=== PATIENT | female | born 1980 | race Caucasian/White ===

== ENCOUNTER 2017-04-15 18:10 | Emergency (ER) | payer SELFPAY ==
[2017-04-15 18:41] VITALS: BP 124/84
[2017-04-15] MEDS ORDERED: IPRATROPIUM/ALBUTEROL 0.5-2.5 MG/3 ML AMPUL NEB ONE (19:20)
[2017-04-15] MEDS ORDERED: DEXAMETHASONE SOD PHOS INJ 10 MG/1 ML VIAL IV ONE (19:20)
--- NOTE | 2017-04-15 19:22 | ER Document Report ---
ED Medical Screen (RME) - General Chief Complaint: Vomiting Stated Complaint: EAR PAIN Time Seen by Provider: 04/15/17 19:19 Mode of Arrival: Ambulatory Information source: Patient Notes: 36-year-old female presents to ED for "been sick for the last 2 weeks not been able to get off the couch. She states she is having body aches cough congestion fevers vomiting earache for the last week. She states she is an alcoholic and drinks about 1/5 and a half a day smokes 10 cigarettes a day denies any drugs states she is on her period right now. Lungs very congested moist wheezes rhonchi rales. I have greeted and performed a rapid initial assessment of this patient. A comprehensive ED assessment and evaluation of the patient, analysis of test results and completion of medical decision making process will be conducted by an additional ED providers. TRAVEL OUTSIDE OF THE [place] IN LAST 30 DAYS: No - Related Data Allergies/Adverse Reactions: lorazepam [From Ativan] Allergy (Verified 04/15/17 18:10) Past Medical History Pulmonary Medical History: Reports: Hx Asthma Past Surgical History: Reports: Hx Adenoidectomy, Hx Section, Hx Tonsillectomy, Hx Tubal Ligation - Immunizations Immunizations up to date: Yes Hx Diphtheria, Pertussis, Tetanus Vaccination: Yes - 2014 Physical Exam - Vital signs Vitals: Temp Pulse Resp BP Pulse Ox 97.7 F 99 20 124/84 93 04/15/17 18:39 04/15/17 18:39 04/15/17 18:39 04/15/17 18:39 04/15/17 18:39 Course - Vital Signs Vital signs: Temp Pulse Resp BP Pulse Ox 97.7 F 99 20 124/84 93 04/15/17 18:39 04/15/17 18:39 04/15/17 18:39 04/15/17 18:39 04/15/17 18:39
[2017-04-15] MEDS ORDERED: ALBUTEROL SULFATE 0.083% NEB 2.5 MG/3 ML AMPUL NEB SCH (19:30)
[2017-04-15 20:15] LABS: APPEARANCE,URINE SLIGHTLY-CLOUDY; BILIRUBIN,URINE NEGATIVE (NEGATIVE); COLOR,URINE YELLOW; GLUCOSE, URINE NEGATIVE (NEGATIVE); KETONES,URINE 80 mg/dL (NEGATIVE); LEUKOCYTE ESTERASE,URINE NEGATIVE (NEGATIVE); NITRITE,URINE NEGATIVE (NEGATIVE); PROTEIN,URINE >=500 mg/dL (NEGATIVE); URINE SPECIFIC GRAVITY 1.022
--- NOTE | 2017-04-15 20:23 | RADIOLOGY REPORT (SQ) ---
EXAM DESCRIPTION: CHEST PA/LAT COMPLETED DATE/TIME: 04/15/2017 8:10 pm REASON FOR STUDY: Cough congestion fever COMPARISON: None. TECHNIQUE: Frontal and lateral radiographic views of the chest acquired. NUMBER OF VIEWS: Two view. LIMITATIONS: None. FINDINGS: LUNGS AND PLEURA: Faint airspace disease projects over the heart shadow on lateral view. Suspicious for pneumonia, likely in the lingula. MEDIASTINUM AND HILAR STRUCTURES: No masses or contour abnormalities. HEART AND VASCULAR STRUCTURES: Heart normal size. No evidence for failure. BONES: No acute findings. HARDWARE: None in the chest. OTHER: No other significant finding. IMPRESSION: Left upper lobe pneumonia. TECHNICAL DOCUMENTATION: JOB ID: [id number] [employer] All Rights Reserved
[2017-04-15 20:53] LABS: ABSOLUTE BASOPHILS # (AUTO) 0.1 10^3/uL (0.0-0.2); ABSOLUTE LYMPHOCYTES (AUTO) 2.2 10^3/uL (0.5-4.7); ABSOLUTE MONOCYTES (AUTO) 0.2 10^3/uL (0.1-1.4); ABSOLUTE NEUT (AUTO) 6.9 10^3/uL (1.7-8.2); BASOPHILS % (AUTO) 0.7 % (0-2); HEMATOCRIT 42.1 % (36.0-47.0); HEMOGLOBIN 14.1 g/dL (12.0-15.5); LYMPHOCYTES % (AUTO) 23.4 % (13-45); MEAN CORPUSCULAR HEMOGLOBIN 30.6 pg (27.0-33.4); MEAN CORPUSCULAR HGB CONC 33.4 g/dL (32.0-36.0); MEAN CORPUSCULAR VOLUME 92 fl (80-97); MONOCYTES % (AUTO) 2.4 % (3-13); PLATELET COUNT 277 10^3/uL (150-450); RED CELL DISTRIBUTION WIDTH 18.3 % (11.5-14.0); SEGMENTED NEUTROPHILS % (AUTO) 73.5 % (42-78); TOTAL CELLS COUNTED % (AUTO) 100 %; WHITE BLOOD COUNT 9.4 10^3/uL (4.0-10.5)
[2017-04-15 21:29] LABS: ALANINE AMINOTRANSFERASE 67 U/L (9-52); ALBUMIN 4.7 g/dL (3.5-5.0); ALKALINE PHOSPHATASE 173 U/L (38-126); ASPARTATE AMINO TRANSFERASE 175 U/L (14-36); BILIRUBIN,DIRECT 0.4 mg/dL (0.0-0.4); BILIRUBIN,TOTAL 0.5 mg/dL (0.2-1.3); BLOOD UREA NITROGEN 8 mg/dL (7-20); CALCIUM 9.3 mg/dL (8.4-10.2); GLUCOSE 55 mg/dL (75-110); TOTAL PROTEIN 7.8 g/dL (6.3-8.2)
[2017-04-15 21:39] LABS: ANION GAP 29 (5-19); CHLORIDE 100 mmol/L (98-107); POTASSIUM 4.5 mmol/L (3.6-5.0)
[2017-04-15 21:40] LABS: CARBON DIOXIDE 12 mmol/L (22-30); SODIUM 140.8 mmol/L (137-145)
[2017-04-15 21:43] LABS: ALCOHOL 357 mg/dL (NONE DETECTED)
== END 2017-04-15 21:39 | disposition left against medical advice (07) ==
LOC: ER 18:10
DX: R11.10 Vomiting, unspecified (principal); M79.1 Myalgia; R05 Cough; H92.09 Otalgia, unspecified ear; F17.210 Nicotine dependence, cigarettes, uncomplicated; J45.909 Unspecified asthma, uncomplicated; Z98.51 Tubal ligation status
CPT/HCPCS: 94640 ×2; 99283; 96374; 36415; 87040; 80307; 84703; 85025; 80053; 81001; 71046; J1100; J7620

== ENCOUNTER 2017-04-16 17:50 | Inpatient (IN) | payer SELFPAY ==
[2017-04-16] MEDS ORDERED: IPRATROPIUM/ALBUTEROL 0.5-2.5 MG/3 ML AMPUL NEB ONE (18:17)
--- NOTE | 2017-04-16 18:18 | ER Document Report ---
ED Medical Screen (RME) - General Chief Complaint: Flu Symptoms Stated Complaint: FLU LIKE SYMPTOMS Time Seen by Provider: 04/16/17 18:16 Mode of Arrival: Ambulatory Information source: Patient Notes: 36-year-old female yesterday presents with complaints of shortness of breath, patient noted to be satting 86% on room air I have greeted and performed a rapid initial assessment of this patient. A comprehensive ED assessment and evaluation of the patient, analysis of test results and completion of the medical decision making process will be conducted by additional ED providers. PHYSICAL EXAMINATION: GENERAL: Respiratory distress. HEAD: Atraumatic, normocephalic. EYES: Pupils equal round extraocular movements intact, conjunctiva are normal. ENT: Nares patent NECK: Normal range of motion LUNGS: moderate respiratory distress Musculoskeletal: Normal range of motion NEUROLOGICAL: Normal speech, normal gait. PSYCH: Normal mood, normal affect. SKIN: Warm, Dry, normal turgor, no rashes or lesions noted. TRAVEL OUTSIDE OF THE [place] IN LAST 30 DAYS: No - Related Data Allergies/Adverse Reactions: lorazepam [From Ativan] Allergy (Verified 04/15/17 18:10) Past Medical History Pulmonary Medical History: Reports: Hx Asthma Renal/ Medical History: Denies: Hx Peritoneal Dialysis Past Surgical History: Reports: Hx Adenoidectomy, Hx Section, Hx Tonsillectomy, Hx Tubal Ligation - Immunizations Immunizations up to date: Yes Hx Diphtheria, Pertussis, Tetanus Vaccination: Yes - 2014 Physical Exam - Vital signs Vitals: Temp Pulse Resp BP Pulse Ox 98.5 F 102 H 19 128/80 H 90 L 04/16/17 18:02 04/16/17 18:02 04/16/17 18:02 04/16/17 18:02 04/16/17 18:02 Course - Vital Signs Vital signs: Temp Pulse Resp BP Pulse Ox 98.5 F 118 H 20 128/80 H 94 04/16/17 18:02 04/16/17 20:24 04/16/17 20:24 04/16/17 18:02 04/16/17 20:24 - Laboratory Result Diagrams: 04/16/17 19:54 04/16/17 19:54 Laboratory results interpreted by me: 04/16/17 18:40 Urine Protein 30 H Urine Ketones 20 H Urine Blood SMALL H Doctor's Discharge - Discharge Clinical Impression: Pneumonia, Hypoxemia, Smoking Condition: Fair Disposition: ADMITTED INPATIENT
[2017-04-16] MEDS ORDERED: CEFTRIAXONE INJ 1000 MG VIAL IV ONE (18:26)
[2017-04-16] MEDS ORDERED: AZITHROMYCIN INJ 500 MG VIAL IV ONE (18:31)
--- NOTE | 2017-04-16 18:31 | ER Document Report ---
ED General - General Chief Complaint: Flu Symptoms Stated Complaint: FLU LIKE SYMPTOMS Time Seen by Provider: 04/16/17 18:16 Mode of Arrival: Ambulatory Information source: Patient Notes: 36-year-old female presents in moderate respiratory distress, patient was noted to be seen yesterday went home continued to smoke. She notes for the past 2 months she has not feeling well, yesterday she was intoxicated and left prior to further evaluation. Yesterday she was at 90% today upon arrival patient was satting 86% admits to productive cough fevers and chills TRAVEL OUTSIDE OF THE [place] IN LAST 30 DAYS: No - HPI Onset: Other Onset/Duration: Persistent Quality of pain: Achy Severity: Mild Pain Level: 1 Associated symptoms: Body/muscle aches, Productive cough, Fever, Shortness of breath Exacerbated by: Coughing Relieved by: Denies Similar symptoms previously: Yes Recently seen / treated by doctor: Yes - Related Data Allergies/Adverse Reactions: lorazepam [From Ativan] Allergy (Verified 04/15/17 18:10) Past Medical History - Social History Smoking Status: Current Every Day Smoker Cigarette use (# per day): Yes Chew tobacco use (# tins/day): No - 30 Smoking Education Provided: Yes - Patient counselled regarding cessation for 4 minutes Frequency of alcohol use: Heavy Drug Abuse: None Family History: Malignancy - family hx of throat cancer. denies: CAD, CVA, DM, Hyperlipidemia, Hypertension, Thyroid Disfunction Patient has suicidal ideation: No Patient has homicidal ideation: No Pulmonary Medical History: Reports: Hx Asthma Renal/ Medical History: Denies: Hx Peritoneal Dialysis Past Surgical History: Reports: Hx Adenoidectomy, Hx Section, Hx Tonsillectomy, Hx Tubal Ligation - Immunizations Immunizations up to date: Yes Hx Diphtheria, Pertussis, Tetanus Vaccination: Yes - 2014 Review of Systems - Review of Systems Notes: REVIEW OF SYSTEMS: CONSTITUTIONAL : Admits to fevers and chills EENT: Denies eye, ear, throat, or mouth pain or symptoms. Denies nasal or sinus congestion or discharge. Denies throat, tongue, or mouth swelling or difficulty swallowing. CARDIOVASCULAR: Denies chest pain. Denies palpitations or racing or irregular heart beat. Denies ankle edema. RESPIRATORY: Admits cough shortness of breath difficulty breathing GASTROINTESTINAL: Denies abdominal pain or distention. Denies nausea, vomiting , or diarrhea. Denies blood in vomitus, stools, or per rectum. Denies black, tarry stools. Denies constipation. GENITOURINARY: Denies difficulty urinating, painful urination, burning, frequency, blood in urine, or discharge. FEMALE GENITOURINARY: Denies vaginal bleeding, heavy or abnormal periods, irregular periods. Denies vaginal discharge or odor. MUSCULOSKELETAL: Denies back or neck pain or stiffness. Denies joint pain or swelling. SKIN: Denies rash, lesions or sores. HEMATOLOGIC : Denies easy bruising or bleeding. LYMPHATIC: Denies swollen, enlarged glands. NEUROLOGICAL: Denies confusion or altered mental status. Denies passing out or loss of consciousness. Denies dizziness or lightheadedness. Denies headache. Denies weakness or paralysis or loss of use of either side. Denies problems with gait or speech. Denies sensory loss, numbness, or tingling. Denies seizures. PSYCHIATRIC: Denies anxiety or stress. Denies depression, suicidal ideation, or homicidal ideation. ALL OTHER SYSTEMS REVIEWED AND NEGATIVE. PHYSICAL EXAMINATION: GENERAL: Ill-appearing female in moderate respiratory distress HEAD: Atraumatic, normocephalic. EYES: Pupils equal round and reactive to light, extraocular movements intact, conjunctiva are normal. ENT: Nares patent, oropharynx clear without exudates. Moist mucous membranes. NECK: Normal range of motion, supple without lymphadenopathy LUNGS: Moderate respiratory distress rhonchi wheezing all throughout HEART: Tachycardic ABDOMEN: Soft, nontender, nondistended abdomen. No guarding, no rebound. No masses appreciated. Female : deferred Musculoskeletal: Normal range of motion, no pitting or edema. No cyanosis. NEUROLOGICAL: Cranial nerves grossly intact. Normal speech, normal gait. Normal sensory, motor exams PSYCH: Normal mood, normal affect. SKIN: Warm, Dry, normal turgor, no rashes or lesions noted. Dictation was performed using [employer] voice recognition software Physical Exam - Vital signs Vitals: Temp Pulse Resp BP Pulse Ox 98.5 F 102 H 19 128/80 H 90 L 04/16/17 18:02 04/16/17 18:02 04/16/17 18:02 04/16/17 18:02 04/16/17 18:02 Course - Re-evaluation Re-evalutation: Upon arrival patient is Stormy's of cigarette smoke, she denies smoking states she only likes them and holds onto them. He is noted to be in moderate respiratory distress immediately placed on oxygen, given that complete workup at been performed the day prior I did contact Dr. Burroughs and she is willing to admit the patient 04/16/17 20:[address] Grace requests azithromycin in addition to the Rocephin 04/16/17 20:36 - Vital Signs Vital signs: Temp Pulse Resp BP Pulse Ox 98.5 F 118 H 20 128/80 H 94 04/16/17 18:02 04/16/17 20:24 04/16/17 20:24 04/16/17 18:02 04/16/17 20:24 - Laboratory Result Diagrams: 04/16/17 19:54 04/16/17 19:54 Laboratory results interpreted by me: 04/16/17 18:40 Urine Protein 30 H Urine Ketones 20 H Urine Blood SMALL H - Diagnostic Test Radiology reviewed: Image reviewed, Reports reviewed - left upper lobe pneumonia Critical Care Note - Critical Care Note Total time excluding time spent on procedures (mins): 34 Comments: 34 minutes of critical care time spent in direct contact evaluating and reevaluating the patient, treating symptoms, reviewing labs and studies and speaking with family and consultants excluding any procedures Discharge - Discharge Clinical Impression: Hypoxemia, Smoking Pneumonia Qualifiers: Pneumonia type: due to unspecified organism Laterality: left Lung location: upper lobe of lung Qualified Code(s): J18.1 - Lobar pneumonia, unspecified organism Condition: Fair Disposition: ADMITTED INPATIENT Admitting Provider: Hospitalist Unit Admitted: Telemetry
[2017-04-16 19:20] LABS: APPEARANCE,URINE CLEAR; BILIRUBIN,URINE NEGATIVE (NEGATIVE); COLOR,URINE YELLOW; GLUCOSE, URINE NEGATIVE (NEGATIVE); KETONES,URINE 20 mg/dL (NEGATIVE); LEUKOCYTE ESTERASE,URINE NEGATIVE (NEGATIVE); NITRITE,URINE NEGATIVE (NEGATIVE); PROTEIN,URINE 30 mg/dL (NEGATIVE); URINE SPECIFIC GRAVITY 1.008; UROBILINOGEN,URINE NEGATIVE mg/dL (<2.0)
--- NOTE | 2017-04-16 19:22 | RADIOLOGY REPORT (SQ) ---
EXAM DESCRIPTION: CHEST PA/LAT COMPLETED DATE/TIME: 04/16/2017 6:57 pm REASON FOR STUDY: sob COMPARISON: 04/15/2017. TECHNIQUE: Frontal and lateral radiographic views of the chest acquired. NUMBER OF VIEWS: Two view. LIMITATIONS: None. FINDINGS: LUNGS AND PLEURA: Minimal persistent subsegmental atelectasis, but improved aeration. No evidence of progressing pneumonia. No pneumothorax. Evidence of previous granulomatous disease. MEDIASTINUM AND HILAR STRUCTURES: No masses or contour abnormalities. HEART AND VASCULAR STRUCTURES: Heart normal size. No evidence for failure. BONES: No acute findings. HARDWARE: None in the chest. OTHER: No other significant finding. IMPRESSION: Improved aeration. Patchy upper lobe opacity is not as evident on today's study. TECHNICAL DOCUMENTATION: JOB ID: [id number] [employer]- All Rights Reserved
[2017-04-16] MEDS ORDERED: HYDRALAZINE HCL INJ/PF 20 MG/1 ML SDV IV PRN (19:29)
[2017-04-16] MEDS ORDERED: IPRATROPIUM/ALBUTEROL 0.5-2.5 MG/3 ML AMPUL NEB PRN (19:30)
[2017-04-16] MEDS ORDERED: ACETAMINOPHEN 325 MG TABLET PO PRN (19:30)
[2017-04-16 19:38] LABS: A TYPE INFLUENZA AG NEGATIVE (NEGATIVE); B INFLUENZA AG NEGATIVE (NEGATIVE)
[2017-04-16 20:00] LABS: ABSOLUTE LYMPHOCYTES (AUTO) 1.3 10^3/uL (0.5-4.7); ABSOLUTE MONOCYTES (AUTO) 0.3 10^3/uL (0.1-1.4); ABSOLUTE NEUT (AUTO) 6.3 10^3/uL (1.7-8.2); BASOPHILS % (AUTO) 0.5 % (0-2); HEMOGLOBIN 13.7 g/dL (12.0-15.5); LYMPHOCYTES % (AUTO) 16.8 % (13-45); MEAN CORPUSCULAR HEMOGLOBIN 30.6 pg (27.0-33.4); MEAN CORPUSCULAR HGB CONC 34.3 g/dL (32.0-36.0); MEAN CORPUSCULAR VOLUME 89 fl (80-97); PLATELET COUNT 293 10^3/uL (150-450); RED BLOOD COUNT 4.48 10^6/uL (3.72-5.28); RED CELL DISTRIBUTION WIDTH 18.4 % (11.5-14.0); SEGMENTED NEUTROPHILS % (AUTO) 78.7 % (42-78); TOTAL CELLS COUNTED % (AUTO) 100 %
[2017-04-16] MEDS ORDERED: FLUTICASONE NASAL SPRAY 50 MCG/SPRY 120 SPRAY/16 GM NASL ONE (20:00)
[2017-04-16] MEDS ORDERED: CHLORPHENIRAMINE MALEATE 4 MG TABLET PO ONE (20:00)
[2017-04-16] MEDS: IPRATROPIUM/ALBUTEROL 0.5-2.5 MG/3 ML AMPUL NEB SCH (20:15)
[2017-04-16 20:23] LABS: ALANINE AMINOTRANSFERASE 67 U/L (9-52); ALBUMIN 4.7 g/dL (3.5-5.0); ALKALINE PHOSPHATASE 160 U/L (38-126); ANION GAP 20 (5-19); ASPARTATE AMINO TRANSFERASE 149 U/L (14-36); BILIRUBIN,DIRECT 0.8 mg/dL (0.0-0.4); BLOOD UREA NITROGEN 9 mg/dL (7-20); CALCIUM 9.9 mg/dL (8.4-10.2); CARBON DIOXIDE 21 mmol/L (22-30); CHLORIDE 97 mmol/L (98-107); GLUCOSE 120 mg/dL (75-110); POTASSIUM 4.4 mmol/L (3.6-5.0); SODIUM 137.8 mmol/L (137-145); TOTAL PROTEIN 8.4 g/dL (6.3-8.2)
[2017-04-16] MEDS ORDERED: HALOPERIDOL LACTATE INJ 5 MG/1 ML VIAL IV ONE (21:03)
[2017-04-16] MEDS ORDERED: HALOPERIDOL LACTATE INJ 5 MG/1 ML VIAL ONE (21:03)
[2017-04-16] MEDS ORDERED: DIAZEPAM INJ 10 MG/2 ML DISP.SYRIN IV ONE (21:24)
[2017-04-16] MEDS ORDERED: HALOPERIDOL LACTATE INJ 5 MG/1 ML VIAL IV PRN (21:24)
[2017-04-16] MEDS ORDERED: THIAMINE HCL INJ 200 MG/2 ML VIAL IV PRN (21:41)
[2017-04-16] MEDS ORDERED: THIAMINE HCL 100 MG, FOLIC ACID 1 MG in NORMAL SALINE 250 ML IV ONE (21:45)
[2017-04-16] MEDS ORDERED: FOLIC ACID INJ 5 MG/1 ML 10 ML VIAL IV PRN (21:46)
[2017-04-16] MEDS: GUAIFENESIN 600 MG TABLET.SA PO SCH (23:10)
[2017-04-16] MEDS: HEPARIN SOD (PORCINE) 5,000 UNIT/ML 1 ML SYRINGE SUBCUT SCH (23:15)
[2017-04-17] MEDS: IPRATROPIUM/ALBUTEROL 0.5-2.5 MG/3 ML AMPUL NEB SCH ×4 (02:31→21:27)
--- NOTE | 2017-04-17 05:36 | PDOC H&P ---
History of Present Illness Admission Date/PCP: 04/16/17 19:16 Patient complains of: Shortness of breath and nonproductive cough History of Present Illness: TACHO SALINAS is a 36 year old female with a past medical history of unclear psychiatric illness suggestive of untreated schizoaffective disorder, COPD, tobacco and alcohol dependence. Patient presents after 1 week of worsening cough and congestion and was actually admitted for left upper lobe pneumonia 24 hours ago but left AMA prior to treatment. During exam patient has a bizarre affect is agitated and tremulous telling me she is about to have a seizure. Her roommate at bedside states she has been hearing voices. The patient denies suicidal or homicidal ideation but admits she has a unknown and untreated psychiatric illness. She states she is an alcoholic and has had withdrawal in the past but is allergic to lorazepam. Patient receives Haldol 10 mg IV followed by Valium 5 mg IV resulting in improved affect. Past Medical History Pulmonary Medical History: Reports: Asthma, Chronic Obstructive Pulmonary Disease (COPD) Psychiatric Medical History: Reports: Schizoaffective Disorder, Tobacco Dependency Past Surgical History Past Surgical History: Reports: Adenoidectomy, Section, Tonsillectomy, Tubal Ligation Social History Information Source: Patient Lives with: Friend Smoking Status: Current Every Day Smoker Frequency of Alcohol Use: Heavy Hx Recreational Drug Use: No Drugs: None - Advance Directive Resuscitation Status: Full Code Family History Family History: Malignancy - family hx of throat cancer. denies: CAD, CVA, DM, Hyperlipidemia, Hypertension, Thyroid Disfunction Parental Family History Reviewed: Yes Children Family History Reviewed: Yes Sibling(s) Family History Reviewed.: Yes Medication/Allergy Home Medications: Amoxicillin Trihydrate [Amoxil 500 mg Capsule] 500 mg PO TID #30 capsule Prednisone [Deltasone 10 mg Tablet] 10 mg PO ASDIR PRN #21 tablet 10/20/15 Chlorhexidine Gluconate [Peridex] 15 ml MM BID #250 ml 02/11/16 Naproxen 500 mg PO BIDP PRN #10 tablet 02/11/16 Penicillin V Potassium [Penicillin Vk 500 mg Tablet] 500 mg PO BID #20 tablet Allergies/Adverse Reactions: lorazepam [From Ativan] Allergy (Verified 04/15/17 18:10) Review of Systems ROS unobtainable: Due to mental status - Unreliable historian, concern for opiate or benzodiazepine seeking behavior. Physical Exam Vital Signs: Temp Pulse Resp BP Pulse Ox 98.8 F 118 H 21 H 101/52 L 93 04/17/17 02:45 04/16/17 20:24 04/17/17 04:31 04/17/17 04:32 04/17/17 04:01 General appearance: PRESENT: disheveled, mild distress, thin Head exam: PRESENT: atraumatic, normocephalic Eye exam: PRESENT: conjunctiva pink, EOMI, PERRLA. ABSENT: scleral icterus Ear exam: PRESENT: normal external ear exam Mouth exam: PRESENT: moist, tongue midline Neck exam: ABSENT: carotid bruit, JVD, lymphadenopathy, thyromegaly Respiratory exam: PRESENT: accessory muscle use, prolonged expiratory phas, rales, retraction, symmetrical, tachypnea Cardiovascular exam: PRESENT: RRR. ABSENT: diastolic murmur, rubs, systolic murmur Pulses: PRESENT: normal dorsalis pedis pul Vascular exam: PRESENT: normal capillary refill GI/Abdominal exam: PRESENT: normal bowel sounds, soft. ABSENT: distended, guarding, mass, organolmegaly, rebound, tenderness Rectal exam: PRESENT: deferred Extremities exam: PRESENT: calf tenderness Neurological exam: PRESENT: alert, awake, oriented to person, oriented to place , oriented to time, oriented to situation, CN II-XII grossly intact. ABSENT: motor sensory deficit Psychiatric exam: PRESENT: agitated, anxious, manic, unusual affect. ABSENT: homicidal ideation, suicidal ideation Focused psych exam: PRESENT: internal stimuli, restlessness Skin exam: PRESENT: dry, intact, warm. ABSENT: cyanosis, rash Results Laboratory Results: 04/16/17 19:54 04/16/17 19:54 04/16/17 04/16/17 19:54 19:54 WBC 8.0 RBC 4.48 Hgb 13.7 Hct 40.0 MCV 89 MCH 30.6 MCHC 34.3 RDW 18.4 H Plt Count 293 Seg Neutrophils % 78.7 H Lymphocytes % 16.8 Monocytes % 4.0 Eosinophils % 0.0 Basophils % 0.5 Absolute Neutrophils 6.3 Absolute Lymphocytes 1.3 Absolute Monocytes 0.3 Absolute Eosinophils 0.0 Absolute Basophils 0.0 Sodium 137.8 Potassium 4.4 Chloride 97 L Carbon Dioxide 21 L Anion Gap 20 H BUN 9 Creatinine 0.68 Est GFR ( Amer) > 60 Est GFR (Non-Af Amer) > 60 Glucose 120 H Calcium 9.9 Total Bilirubin 1.0 AST 149 H ALT 67 H Alkaline Phosphatase 160 H Total Protein 8.4 H Albumin 4.7 Impressions: Chest X-Ray 04/16/17 18:17 IMPRESSION: Improved aeration. Patchy upper lobe opacity is not as evident on today's study. Assessment & Plan - Diagnosis (1) Pneumonia Qualifiers: Pneumonia type: due to unspecified organism Laterality: left Lung location: upper lobe of lung Qualified Code(s): J18.1 - Lobar pneumonia, unspecified organism Is this a current diagnosis for this admission?: Yes Plan: Telemetry bed, pneumonia care set, incentive spirometry. Follow-up CBC and blood culture (2) COPD exacerbation Is this a current diagnosis for this admission?: Yes Plan: Supplemental oxygen, flutter valve, albuterol and Atrovent, avoid steroids secondary to decompensated psychosis. (3) Tobacco dependency Is this a current diagnosis for this admission?: Yes Plan: Tobacco Dependence patient received tobacco cessation counseling and offered nicotine replacement options (4) Alcohol dependence Is this a current diagnosis for this admission?: Yes Plan: Alcohol withdrawal, gives history of Ativan allergy with unclear reaction, tolerates Valium well. Thiamine folate ordered (5) Schizoaffective disorder Is this a current diagnosis for this admission?: Yes Plan: Haldol and benzodiazepine ordered. Mental health consulted - Time Time Spent: 50 to 70 Minutes - Inpatient Certification Medical Necessity: Need Close Monitoring Due to Risk of Patient Decompensation
[2017-04-17] MEDS: DIAZEPAM INJ 10 MG/2 ML DISP.SYRIN IV SCH ×4 (06:33→22:48)
[2017-04-17] MEDS: HEPARIN SOD (PORCINE) 5,000 UNIT/ML 1 ML SYRINGE SUBCUT SCH ×3 (06:34→22:48)
[2017-04-17] MEDS: NICOTINE 14 MG/24 HR PATCH.TD24 TD PRN (07:59)
--- NOTE | 2017-04-17 09:09 | PSYCHOLOGICAL NOTE ---
Psych Note - Psych Note Psych Note: Met with Patient who is not under IVC at this time. Patient reported she came to ED secondary to ongoing medical issues such as coughing, difficulty breathing, etc. She indicated she feels tremulous secondary to drinking 1-2 bottles of rum-Captain Ned per day (03/03). 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 She indicated she work 3- 4 days per week for 8 hours per day. When asked how she supported her drinking habit, she stated she had a saving account from her work as a cook or that her roommate graciously bought her alcohol for her. She indicated she began drinking 10 years ago and also went to rehab/detox 10 years ago for 2 weeks. When asked about a mental health history, she became incredibly guarded and argumentative, not wanting to answer the question. Additionally, her heart monitor and blood pressure were noted to increase significantly when discussing this topic. She denied any mental health issues, suicide attempts, or inpatient hospitalizations. patient reported she moved to [place] from [place] 2 years ago to be close to her children who are now 17, 18 and 19, and none of which live in the home. She denied having any family or friends in the area when she initially moved to [place], [place]. Patient was alert and oriented to person, place, time, and circumstance. Mood was irritable and anxious with congruent affect. She denied suicidal / homicidal ideation, intent, or plan. She denied auditory/ visual hallucinations and no delusions were noted. Thought processes were logical, linear, and rational. Conversational speech was within normal limits for rate, tone, and prosody. Intellectual abilities were estimated within the average range. Attention and concentration were fair. Insight, judgment, and impulse control were poor to fair. 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 Review of the [place] Controlled Substance Registry did not reveal controlled substance prescriptions dating back to 2013. Medication recommendation per [facility] Psychiatrist: 1. Zyprexa 5 mg twice per day 2. Buspar 10 mg at bedtime 3. Cogentin 1 mg at night Diagnoses: 1. 305.00 (F10.10) Alcohol Use Disorder, Mild Impression / Plan: Patient is psychiatrically clear. She denied suicidal / homicidal ideation, intent or plan and became irritable when asked about mental health issues, leading me to believe she likely has a mental health history she is unwilling to endorse. The historical information provided does not make but she is not being forthcoming at this time. Patient reports she does not feel well and does not want to talk with anyone from psychiatry. Patient is admitted to the medical floor for pneumonia. Medication recommendations are in place. Please reconsult if needed. ED Physician in agreement with recommendation and disposition.
[2017-04-17] MEDS ORDERED: LEVALBUTEROL HCL NEB 1.25 MG/3 ML AMPUL NEB PRN (09:48)
[2017-04-17] MEDS ORDERED: CEFTRIAXONE 1 GM/D5W RTU 1 GM/50 ML RTUPB IV SCH (10:00)
[2017-04-17] MEDS ORDERED: THIAMINE HCL 100 MG, FOLIC ACID 1 MG in NORMAL SALINE 250 ML IV SCH (10:00)
[2017-04-17 10:05] LABS: HEMATOCRIT 35.4 % (36.0-47.0); HEMOGLOBIN 12.2 g/dL (12.0-15.5); MEAN CORPUSCULAR HEMOGLOBIN 30.4 pg (27.0-33.4); MEAN CORPUSCULAR HGB CONC 34.4 g/dL (32.0-36.0); MEAN CORPUSCULAR VOLUME 88 fl (80-97); PLATELET COUNT 212 10^3/uL (150-450); RED BLOOD COUNT 4.01 10^6/uL (3.72-5.28); RED CELL DISTRIBUTION WIDTH 18.4 % (11.5-14.0); WHITE BLOOD COUNT 6.7 10^3/uL (4.0-10.5)
[2017-04-17 10:22] LABS: ANION GAP 14 (5-19); BLOOD UREA NITROGEN 12 mg/dL (7-20); CALCIUM 9.9 mg/dL (8.4-10.2); CARBON DIOXIDE 26 mmol/L (22-30); CHLORIDE 92 mmol/L (98-107); GLUCOSE 98 mg/dL (75-110); POTASSIUM 3.6 mmol/L (3.6-5.0); SODIUM 132.3 mmol/L (137-145)
[2017-04-17] MEDS: OLANZAPINE 5 MG TABLET PO SCH ×2 (10:28→22:48)
[2017-04-17] MEDS: GUAIFENESIN 600 MG TABLET.SA PO SCH ×2 (10:29→22:47)
[2017-04-17] MEDS: FLUTICASONE NASAL SPRAY 50 MCG/SPRY 120 SPRAY/16 GM NASL SCH ×2 (10:29→22:49)
[2017-04-17] MEDS: AZITHROMYCIN 500 MG in DEXTROSE 5%-WATER 250 ML IV SCH (10:30)
[2017-04-17 10:32] LABS: VENOUS BLOOD BASE EXCESS 8.1 mmol/L; VENOUS BLOOD HCO3 29.2 mmol/L (20-32); VENOUS BLOOD PCO2 30.6 mmHg (35-63); VENOUS BLOOD PH 7.6 (7.30-7.42)
--- NOTE | 2017-04-17 13:10 | PDOC PROGRESS REPORT ---
Subjective Progress Note for:: 04/17/17 Subjective:: The patient is a 36-year-old female with a past medical history of unclear psychiatric illness suggestive of an untreated schizoaffective disorder, COPD, tobacco and alcohol dependence who was admitted on 04/16/17 for a left upper lobe pneumonia with COPD exacerbation The patient is seen on rounds. She is found resting comfortably in the emergency department stretcher on supplemental oxygen at 2 L/min. She is drowsy but does wake easily and is cooperative during my questions and exam. She states that she is feeling better, however does continue to feel short of breath with activity and endorses a productive cough. She has no other questions or concerns at this time. Reason For Visit: COPD EXACERBATION,PNEUMONIA Physical Exam Vital Signs: Temp Pulse Resp BP Pulse Ox 98.8 F 142 H 16 97/54 L 93 04/17/17 02:45 04/17/17 08:22 04/17/17 10:23 04/17/17 10:00 04/17/17 10:23 General appearance: PRESENT: no acute distress, cooperative, well-developed, well-nourished Head exam: PRESENT: atraumatic, normocephalic Eye exam: PRESENT: conjunctiva pink, EOMI, PERRLA. ABSENT: scleral icterus Ear exam: PRESENT: normal external ear exam Mouth exam: PRESENT: moist, tongue midline Neck exam: ABSENT: carotid bruit, JVD, lymphadenopathy, thyromegaly Respiratory exam: PRESENT: rhonchi, symmetrical, unlabored, wheezes, other - Supplemental oxygen via nasal cannula at 2 L/min.. ABSENT: rales Cardiovascular exam: PRESENT: RRR, +S1, +S2, tachycardia - 120's. ABSENT: diastolic murmur, rubs, systolic murmur Pulses: PRESENT: normal dorsalis pedis pul Vascular exam: PRESENT: normal capillary refill GI/Abdominal exam: PRESENT: normal bowel sounds, soft. ABSENT: distended, guarding, mass, organolmegaly, rebound, tenderness Rectal exam: PRESENT: deferred Extremities exam: PRESENT: full ROM. ABSENT: calf tenderness, clubbing, pedal edema Neurological exam: PRESENT: alert, awake, oriented to person, oriented to place , oriented to time, oriented to situation, CN II-XII grossly intact. ABSENT: motor sensory deficit Psychiatric exam: PRESENT: anxious, appropriate affect. ABSENT: homicidal ideation, suicidal ideation Skin exam: PRESENT: dry, intact, warm. ABSENT: cyanosis, rash Results Laboratory Results: 04/17/17 09:39 04/17/17 09:39 04/16/17 04/16/17 04/17/17 19:54 19:54 09:39 WBC 8.0 6.7 RBC 4.48 4.01 Hgb 13.7 12.2 Hct 40.0 35.4 L MCV 89 88 MCH 30.6 30.4 MCHC 34.3 34.4 RDW 18.4 H 18.4 H Plt Count 293 212 Seg Neutrophils % 78.7 H Lymphocytes % 16.8 Monocytes % 4.0 Eosinophils % 0.0 Basophils % 0.5 Absolute Neutrophils 6.3 Absolute Lymphocytes 1.3 Absolute Monocytes 0.3 Absolute Eosinophils 0.0 Absolute Basophils 0.0 VBG pH VBG pCO2 VBG HCO3 VBG Base Excess Sodium 137.8 Potassium 4.4 Chloride 97 L Carbon Dioxide 21 L Anion Gap 20 H BUN 9 Creatinine 0.68 Est GFR ( Amer) > 60 Est GFR (Non-Af Amer) > 60 Glucose 120 H Calcium 9.9 Total Bilirubin 1.0 AST 149 H ALT 67 H Alkaline Phosphatase 160 H Total Protein 8.4 H Albumin 4.7 04/17/17 04/17/17 09:39 09:39 WBC RBC Hgb Hct MCV MCH MCHC RDW Plt Count Seg Neutrophils % Lymphocytes % Monocytes % Eosinophils % Basophils % Absolute Neutrophils Absolute Lymphocytes Absolute Monocytes Absolute Eosinophils Absolute Basophils VBG pH 7.60 H VBG pCO2 30.6 L VBG HCO3 29.2 VBG Base Excess 8.1 Sodium 132.3 L Potassium 3.6 Chloride 92 L Carbon Dioxide 26 Anion Gap 14 BUN 12 Creatinine 0.76 Est GFR ( Amer) > 60 Est GFR (Non-Af Amer) > 60 Glucose 98 Calcium 9.9 Total Bilirubin AST ALT Alkaline Phosphatase Total Protein Albumin Impressions: Chest X-Ray 04/16/17 18:17 IMPRESSION: Improved aeration. Patchy upper lobe opacity is not as evident on today's study. Assessment & Plan - Diagnosis (1) Pneumonia Qualifiers: Pneumonia type: due to unspecified organism Laterality: left Lung location: upper lobe of lung Qualified Code(s): J18.1 - Lobar pneumonia, unspecified organism Is this a current diagnosis for this admission?: Yes Plan: The patient was admitted with hypoxia on room air noted to be 88% secondary to a left upper lobe pneumonia and COPD exacerbation with continuous tobacco use. The patient is noted to be maintaining her oxygen saturations at 98% while on 2 L via nasal cannula with a heart rate of 112. The oxygen was held while I was in room and although she maintained her oxygen saturations, her heart rate was noted to climb to the 120-130s. Oxygen resumed. Blood cultures are pending. The patient is admitted to the telemetry unit on continuous cardiac telemetry. She is provided supplemental oxygen as needed to maintain oxygen saturations greater than 92% She is provided IV Rocephin and azithromycin. She is placed on scheduled duo nebs with Xopenex as needed. She is started on Mucinex twice daily. Incentive spirometry and flutter valve to bedside. (2) COPD exacerbation Is this a current diagnosis for this admission?: Yes Plan: COPD exacerbation in the setting of a left upper lobe pneumonia and continuous tobacco. Plan as above. In addition, the patient is provided a good impact. Will start IV Solu-Medrol; plan cleared with Dr. Lawler. She did not feel that there would be any indication to withhold steroids considering the patient' s current mental health status. (3) Alcohol dependence Qualifiers: Substance use status: unspecified alcohol-induced disorder Qualified Code(s ): F10.29 - Alcohol dependence with unspecified alcohol-induced disorder Is this a current diagnosis for this admission?: Yes Plan: The patient appears to be in some alcohol withdrawal. She reports an unspecified allergy to Ativan. She is placed on scheduled Valium; will wean as patient tolerates. Thiamine and folic acid supplementation are ordered. Seizure precautions are in place. (4) Tobacco dependency Is this a current diagnosis for this admission?: Yes Plan: Smoking cessation is encouraged and nicotine replacement therapy has been provided. (5) Agitation Is this a current diagnosis for this admission?: Yes Plan: Agitation concerning for a underlying schizoaffective disorder with alcohol dependence. The patient has been evaluated psychiatry and their recommendations have been implemented; Zyprexa 5 mg twice daily, BuSpar 10 mg nightly, Cogentin 1 mg nightly. - Time Time Spent with patient: 25-34 minutes Medications reviewed and adjusted accordingly: Yes - Inpatient Certification Based on my medical assessment, after consideration of the patient's comorbidities, presenting symptoms, or acuity I expect that the services needed warrant INPATIENT care.: Yes I certify that my determination is in accordance with my understanding of Medicare's requirements for reasonable and necessary INPATIENT services [42 CFR 412.3e].: Yes Medical Necessity: Need Close Monitoring Due to Risk of Patient Decompensation, Need For Continuous Telemetry Monitoring, Need for Nebulizer Therapy and Monitoring of Response
[2017-04-17] MEDS: METHYLPREDNISOLONE INJ 40 MG/1 ML SDV IV SCH ×2 (13:51→22:48)
[2017-04-17] MEDS: CEFTRIAXONE SODIUM 1,000 MG in NORMAL SALINE 100 ML IV SCH (13:55)
[2017-04-17] MEDS: BENZTROPINE MESYLATE 1 MG TABLET PO SCH (22:47)
[2017-04-17] MEDS: BUSPIRONE HCL 10 MG TABLET PO SCH (22:48)
[2017-04-18] MEDS: THIAMINE HCL 100 MG, FOLIC ACID 1 MG in NORMAL SALINE 250 ML IV SCH ×2 (00:25→03:22)
[2017-04-18] MEDS ORDERED: FOLIC ACID INJ 5 MG/1 ML 10 ML VIAL ONE (00:38)
[2017-04-18] MEDS ORDERED: THIAMINE HCL INJ 200 MG/2 ML VIAL ONE (00:39)
[2017-04-18] MEDS: IPRATROPIUM/ALBUTEROL 0.5-2.5 MG/3 ML AMPUL NEB SCH ×4 (02:36→20:53)
[2017-04-18] MEDS: DIAZEPAM INJ 10 MG/2 ML DISP.SYRIN IV SCH ×4 (05:48→23:57)
[2017-04-18] MEDS: HEPARIN SOD (PORCINE) 5,000 UNIT/ML 1 ML SYRINGE SUBCUT SCH ×3 (05:49→22:06)
[2017-04-18] MEDS: METHYLPREDNISOLONE INJ 40 MG/1 ML SDV IV SCH ×3 (05:49→22:05)
[2017-04-18 06:45] LABS: HEMATOCRIT 34.7 % (36.0-47.0); HEMOGLOBIN 11.8 g/dL (12.0-15.5); MEAN CORPUSCULAR HEMOGLOBIN 30.6 pg (27.0-33.4); MEAN CORPUSCULAR VOLUME 90 fl (80-97); PLATELET COUNT 182 10^3/uL (150-450); RED BLOOD COUNT 3.85 10^6/uL (3.72-5.28)
[2017-04-18 06:47] LABS: WHITE BLOOD COUNT 2.7 10^3/uL (4.0-10.5)
[2017-04-18 06:53] LABS: ANION GAP 11 (5-19); BLOOD UREA NITROGEN 9 mg/dL (7-20); CARBON DIOXIDE 27 mmol/L (22-30); CHLORIDE 98 mmol/L (98-107); GLUCOSE 126 mg/dL (75-110); POTASSIUM 3.8 mmol/L (3.6-5.0); SODIUM 136.2 mmol/L (137-145)
[2017-04-18] MEDS: FLUTICASONE NASAL SPRAY 50 MCG/SPRY 120 SPRAY/16 GM NASL SCH ×2 (09:50→22:13)
[2017-04-18] MEDS: AZITHROMYCIN 500 MG in DEXTROSE 5%-WATER 250 ML IV SCH (09:50)
[2017-04-18] MEDS: GUAIFENESIN 600 MG TABLET.SA PO SCH ×2 (09:50→22:05)
[2017-04-18] MEDS: OLANZAPINE 5 MG TABLET PO SCH ×2 (09:50→22:05)
[2017-04-18] MEDS: CEFTRIAXONE SODIUM 1,000 MG in NORMAL SALINE 100 ML IV SCH (12:58)
--- NOTE | 2017-04-18 18:31 | PDOC PROGRESS REPORT ---
Subjective Progress Note for:: 04/18/17 Subjective:: 36-year-old female with past medical history of unclear psychiatric illness suggestive of untreated schizoaffective disorder, COPD, tobacco and alcohol dependence who was admitted 04/16 for a left lower pneumonia with COPD exacerbation. Patient seen on rounds, she is resting comfortably in bed on supplemental oxygen at 2 L/min. she is awake, oriented, and participatory in care. Patient states she is feeling better but does get short of breath with activity. Patient denies chest pain, dizziness, or malaise. Reason For Visit: COPD EXACERBATION,PNEUMONIA Physical Exam Vital Signs: Temp Pulse Resp BP Pulse Ox 98.1 F 112 H 18 124/72 94 04/18/17 15:53 04/18/17 15:53 04/18/17 15:53 04/18/17 15:53 04/18/17 15:53 Intake & Output 04/17/17 04/18/17 04/19/17 06:59 06:59 06:59 Intake Total 485 Balance 485 Weight 55.8 kg General appearance: PRESENT: no acute distress, well-developed, well-nourished Head exam: PRESENT: atraumatic, normocephalic Respiratory exam: PRESENT: rales, wheezes Cardiovascular exam: PRESENT: +S1, +S2 Pulses: PRESENT: normal radial pulses, +2 pedal pulses bilateral Vascular exam: PRESENT: normal capillary refill GI/Abdominal exam: PRESENT: normal bowel sounds Rectal exam: PRESENT: deferred Extremities exam: PRESENT: full ROM Musculoskeletal exam: PRESENT: full ROM Neurological exam: PRESENT: alert, awake Results Laboratory Results: 04/18/17 05:40 04/18/17 05:40 04/18/17 04/18/17 05:40 05:40 WBC 2.7 L D RBC 3.85 Hgb 11.8 L Hct 34.7 L MCV 90 MCH 30.6 MCHC 34.0 RDW 18.0 H Plt Count 182 Sodium 136.2 L Potassium 3.8 Chloride 98 Carbon Dioxide 27 Anion Gap 11 BUN 9 Creatinine 0.63 Est GFR ( Amer) > 60 Est GFR (Non-Af Amer) > 60 Glucose 126 H Calcium 10.0 Impressions: Chest X-Ray 04/16/17 18:17 IMPRESSION: Improved aeration. Patchy upper lobe opacity is not as evident on today's study. Status: Imported from PACS Assessment & Plan - Diagnosis (1) Pneumonia Qualifiers: Pneumonia type: due to unspecified organism Laterality: left Lung location: upper lobe of lung Qualified Code(s): J18.1 - Lobar pneumonia, unspecified organism Is this a current diagnosis for this admission?: Yes Plan: Left upper lobe pneumonia and COPD exacerbation. Patient currently requires supplemental oxygen to maintain her sats above 88%. Continue IV Rocephin and azithromycin for pneumonia. Schedule duo nebs and as needed Xopenex. Continue scheduled Mucinex twice daily. Incentive spirometer at bedside (2) COPD exacerbation Is this a current diagnosis for this admission?: Yes Plan: COPD in the setting of the left upper lobe pneumonia. IV Solu-Medrol started, plan cleared with Dr. Lawler. She did not feel that there would be any indication to withhold steroids considering the patient's current mental health status. (3) Alcohol dependence Qualifiers: Substance use status: unspecified alcohol-induced disorder Qualified Code(s ): F10.29 - Alcohol dependence with unspecified alcohol-induced disorder Is this a current diagnosis for this admission?: Yes Plan: Patient reports that she is in a degree of alcohol withdrawal. She states that she drinks every day. Patient states she is allergic to Ativan, she is currently on scheduled Valium, wean as tolerated. Thiamine and folic acid supplements as ordered. Seizure precautions are in place. (4) Tobacco dependency Is this a current diagnosis for this admission?: Yes Plan: Smoking cessation is encouraged in nicotine replacement therapy has been provided (5) Agitation Is this a current diagnosis for this admission?: Yes Plan: Agitation concerning for underlying schizoaffective disorder with alcohol dependence. Patient has not been evaluated by Dr. Lawler. The patient is currently on Zyprexa 5 mg twice daily, BuSpar 10 mg nightly, Cogentin 1 mg nightly. The patient states that she does not feel agitated this morning, she states that she feels that her mental health is in "good place" today. Will likely need outpatient psych referral upon discharge - Time Time Spent with patient: 15-24 minutes Anticipated discharge: Home Within: within 48 hours - Inpatient Certification Based on my medical assessment, after consideration of the patient's comorbidities, presenting symptoms, or acuity I expect that the services needed warrant INPATIENT care.: Yes I certify that my determination is in accordance with my understanding of Medicare's requirements for reasonable and necessary INPATIENT services [42 CFR 412.3e].: Yes Medical Necessity: Risk of Complication if Not Cared For in Hospital - Plan Summary Plan Summary: discharge home
[2017-04-18] MEDS: BUSPIRONE HCL 10 MG TABLET PO SCH (22:05)
[2017-04-18] MEDS: BENZTROPINE MESYLATE 1 MG TABLET PO SCH (22:07)
[2017-04-18] MEDS: NICOTINE 14 MG/24 HR PATCH.TD24 TD PRN (23:57)
[2017-04-19] MEDS: IPRATROPIUM/ALBUTEROL 0.5-2.5 MG/3 ML AMPUL NEB SCH ×4 (02:17→20:48)
[2017-04-19] MEDS: HEPARIN SOD (PORCINE) 5,000 UNIT/ML 1 ML SYRINGE SUBCUT SCH ×3 (06:01→21:46)
[2017-04-19] MEDS: METHYLPREDNISOLONE INJ 40 MG/1 ML SDV IV SCH ×3 (06:01→21:46)
[2017-04-19] MEDS: DIAZEPAM INJ 10 MG/2 ML DISP.SYRIN IV SCH ×4 (06:35→23:56)
[2017-04-19 06:52] LABS: ANION GAP 10 (5-19); BLOOD UREA NITROGEN 13 mg/dL (7-20); CALCIUM 9.8 mg/dL (8.4-10.2); CARBON DIOXIDE 26 mmol/L (22-30); CHLORIDE 100 mmol/L (98-107); GLUCOSE 112 mg/dL (75-110); PHOSPHORUS 1.9 mg/dL (2.5-4.5); POTASSIUM 3.8 mmol/L (3.6-5.0); SODIUM 135.9 mmol/L (137-145)
[2017-04-19 07:17] LABS: ABSOLUTE LYMPHOCYTES (AUTO) 0.9 10^3/uL (0.5-4.7); ABSOLUTE MONOCYTES (AUTO) 0.2 10^3/uL (0.1-1.4); ABSOLUTE NEUT (AUTO) 4.6 10^3/uL (1.7-8.2); HEMOGLOBIN 11.5 g/dL (12.0-15.5); LYMPHOCYTES % (AUTO) 15.7 % (13-45); MEAN CORPUSCULAR HEMOGLOBIN 30.7 pg (27.0-33.4); MEAN CORPUSCULAR HGB CONC 33.8 g/dL (32.0-36.0); MEAN CORPUSCULAR VOLUME 91 fl (80-97); MONOCYTES % (AUTO) 4.1 % (3-13); PLATELET COUNT 172 10^3/uL (150-450); RED BLOOD COUNT 3.75 10^6/uL (3.72-5.28); RED CELL DISTRIBUTION WIDTH 18.2 % (11.5-14.0); SEGMENTED NEUTROPHILS % (AUTO) 80.2 % (42-78); TOTAL CELLS COUNTED % (AUTO) 100 %
[2017-04-19 08:05] LABS: WHITE BLOOD COUNT 5.8 10^3/uL (4.0-10.5)
[2017-04-19] MEDS: OLANZAPINE 5 MG TABLET PO SCH ×2 (10:21→21:46)
[2017-04-19] MEDS: AZITHROMYCIN 500 MG in DEXTROSE 5%-WATER 250 ML IV SCH (10:25)
[2017-04-19] MEDS: FLUTICASONE NASAL SPRAY 50 MCG/SPRY 120 SPRAY/16 GM NASL SCH ×2 (10:25→21:46)
[2017-04-19] MEDS: GUAIFENESIN 600 MG TABLET.SA PO SCH ×2 (10:25→21:46)
[2017-04-19] MEDS: CEFTRIAXONE SODIUM 1,000 MG in NORMAL SALINE 100 ML IV SCH (12:21)
--- NOTE | 2017-04-19 16:54 | PDOC PROGRESS REPORT ---
Subjective Progress Note for:: 04/19/17 Subjective:: 36-year-old female with past medical history of unclear psychiatric illness suggestive of untreated schizoaffective disorder, COPD, tobacco and alcohol dependence who was admitted 04/16 for a left lower pneumonia with COPD exacerbation. Patient seen on rounds, she is resting comfortably in bed on room air. she is drowsy but arousable and participatory in care. Patient states she is feeling better this morning. She denies chest pain, dizziness, or malaise. Slight wheezing is heard in the bilateral lower lung gomez. Reason For Visit: COPD EXACERBATION,PNEUMONIA Physical Exam Vital Signs: Temp Pulse Resp BP Pulse Ox 97.9 F 71 16 124/62 96 04/19/17 07:39 04/19/17 07:48 04/19/17 07:48 04/19/17 07:39 04/19/17 07:48 Intake & Output 04/18/17 04/19/17 04/20/17 06:59 06:59 06:59 Intake Total 485 1308 Balance 485 1308 Weight 55.8 kg 56.9 kg General appearance: PRESENT: no acute distress, well-developed, well-nourished Head exam: PRESENT: atraumatic, normocephalic Eye exam: PRESENT: conjunctiva pink, EOMI, PERRLA. ABSENT: scleral icterus Respiratory exam: PRESENT: wheezes - bilateral lower lung gomez Cardiovascular exam: PRESENT: +S1, +S2 Pulses: PRESENT: normal radial pulses, +1 pedal pulses bilateral GI/Abdominal exam: PRESENT: soft Rectal exam: PRESENT: deferred Extremities exam: PRESENT: full ROM Musculoskeletal exam: PRESENT: full ROM Neurological exam: PRESENT: alert, awake, oriented to person, oriented to place , oriented to time, oriented to situation Psychiatric exam: PRESENT: appropriate affect Skin exam: PRESENT: dry, intact, normal color Results Laboratory Results: 04/19/17 04:33 04/19/17 04:33 04/19/17 04/19/17 04:33 04:33 WBC 5.8 D RBC 3.75 Hgb 11.5 L Hct 34.0 L MCV 91 MCH 30.7 MCHC 33.8 RDW 18.2 H Plt Count 172 Seg Neutrophils % 80.2 H Lymphocytes % 15.7 Monocytes % 4.1 Eosinophils % 0.0 Basophils % 0.0 Absolute Neutrophils 4.6 Absolute Lymphocytes 0.9 Absolute Monocytes 0.2 Absolute Eosinophils 0.0 Absolute Basophils 0.0 Sodium 135.9 L Potassium 3.8 Chloride 100 Carbon Dioxide 26 Anion Gap 10 BUN 13 Creatinine 0.70 Est GFR ( Amer) > 60 Est GFR (Non-Af Amer) > 60 Glucose 112 H Calcium 9.8 Phosphorus 1.9 L Magnesium 1.9 Impressions: Chest X-Ray 04/16/17 18:17 IMPRESSION: Improved aeration. Patchy upper lobe opacity is not as evident on today's study. Status: Imported from PACS Assessment & Plan - Diagnosis (1) Pneumonia Qualifiers: Pneumonia type: due to unspecified organism Laterality: left Lung location: upper lobe of lung Qualified Code(s): J18.1 - Lobar pneumonia, unspecified organism Is this a current diagnosis for this admission?: Yes Plan: Left upper lobe pneumonia and COPD exacerbation. Patient is currently on room air, she does not require supplemental oxygen to maintain her sats above 88%. Continue IV Rocephin and azithromycin for pneumonia. Schedule duo nebs and as needed Xopenex. Continue scheduled Mucinex twice daily. Incentive spirometer at bedside. I am concerned that this patient will not adhere to outpatient antibiotic treatment - she is an alcoholic, untreated psychiatric disorder, and uninsured. My plan is to keep her inpatient for 5 days to complete her IV antibiotic course. Barring any complications, the patient should be able to go home on Friday 04/21 (2) COPD exacerbation Is this a current diagnosis for this admission?: Yes Plan: COPD in the setting of the left upper lobe pneumonia. Mild wheezing heard in bilateral lung bases. IV Solu-Medrol started, plan cleared with Dr. Lawler. She did not feel that there would be any indication to withhold steroids considering the patient's current mental health status. (3) Alcohol dependence Qualifiers: Substance use status: unspecified alcohol-induced disorder Qualified Code(s ): F10.29 - Alcohol dependence with unspecified alcohol-induced disorder Is this a current diagnosis for this admission?: Yes Plan: Patient states that she 1/5 of hard liquor every day. She states she is allergic to Ativan, she is currently on scheduled Valium, wean as tolerated. Thiamine and folic acid supplements as ordered. Seizure precautions are in place. (4) Tobacco dependency Is this a current diagnosis for this admission?: Yes Plan: Smoking cessation is encouraged in nicotine replacement therapy has been provided (5) Agitation Is this a current diagnosis for this admission?: Yes Plan: No agitation this morning, patient is observed to be calm with appropriate affect. It was reported that the patient was agitated on admission. Agitation concerning for undiagnosed schizoaffective disorder with alcohol dependence. Patient has been evaluated by Dr. Lawler. The patient is currently on Zyprexa 5 mg twice daily, BuSpar 10 mg nightly, Cogentin 1 mg nightly. Will likely need outpatient psych referral upon discharge - Time Time Spent with patient: 15-24 minutes Medications reviewed and adjusted accordingly: Yes Anticipated discharge: Home Within: within 72 hours - Inpatient Certification Based on my medical assessment, after consideration of the patient's comorbidities, presenting symptoms, or acuity I expect that the services needed warrant INPATIENT care.: Yes I certify that my determination is in accordance with my understanding of Medicare's requirements for reasonable and necessary INPATIENT services [42 CFR 412.3e].: Yes Medical Necessity: Risk of Complication if Not Cared For in Hospital - Plan Summary Plan Summary: Ultimately, the plan is to discharge the patient home with follow-up to outpatient psych
[2017-04-19] MEDS: BUSPIRONE HCL 10 MG TABLET PO SCH (21:46)
[2017-04-19] MEDS: BENZTROPINE MESYLATE 1 MG TABLET PO SCH (21:46)
[2017-04-20] MEDS: IPRATROPIUM/ALBUTEROL 0.5-2.5 MG/3 ML AMPUL NEB SCH ×4 (02:08→20:52)
[2017-04-20 04:05] LABS: ABSOLUTE LYMPHOCYTES (AUTO) 1.4 10^3/uL (0.5-4.7); ABSOLUTE MONOCYTES (AUTO) 0.5 10^3/uL (0.1-1.4); ABSOLUTE NEUT (AUTO) 5.7 10^3/uL (1.7-8.2); BASOPHILS % (AUTO) 0.2 % (0-2); HEMATOCRIT 34.2 % (36.0-47.0); HEMOGLOBIN 11.4 g/dL (12.0-15.5); LYMPHOCYTES % (AUTO) 18.2 % (13-45); MEAN CORPUSCULAR HEMOGLOBIN 30.7 pg (27.0-33.4); MEAN CORPUSCULAR HGB CONC 33.4 g/dL (32.0-36.0); MEAN CORPUSCULAR VOLUME 92 fl (80-97); MONOCYTES % (AUTO) 6.2 % (3-13); PLATELET COUNT 184 10^3/uL (150-450); RED BLOOD COUNT 3.72 10^6/uL (3.72-5.28); RED CELL DISTRIBUTION WIDTH 17.9 % (11.5-14.0); SEGMENTED NEUTROPHILS % (AUTO) 75.4 % (42-78); TOTAL CELLS COUNTED % (AUTO) 100 %; WHITE BLOOD COUNT 7.6 10^3/uL (4.0-10.5)
[2017-04-20 04:23] LABS: ANION GAP 8 (5-19); BLOOD UREA NITROGEN 13 mg/dL (7-20); CALCIUM 10.4 mg/dL (8.4-10.2); CARBON DIOXIDE 27 mmol/L (22-30); CHLORIDE 102 mmol/L (98-107); GLUCOSE 115 mg/dL (75-110); PHOSPHORUS 1.3 mg/dL (2.5-4.5); POTASSIUM 3.9 mmol/L (3.6-5.0); SODIUM 136.6 mmol/L (137-145)
[2017-04-20] MEDS: DIAZEPAM INJ 10 MG/2 ML DISP.SYRIN IV SCH ×4 (06:00→23:35)
[2017-04-20] MEDS: HEPARIN SOD (PORCINE) 5,000 UNIT/ML 1 ML SYRINGE SUBCUT SCH ×3 (06:03→21:24)
[2017-04-20] MEDS: METHYLPREDNISOLONE INJ 40 MG/1 ML SDV IV SCH ×2 (06:08→14:36)
[2017-04-20] MEDS: FLUTICASONE NASAL SPRAY 50 MCG/SPRY 120 SPRAY/16 GM NASL SCH ×2 (09:55→21:28)
[2017-04-20] MEDS: THIAMINE HCL 100 MG TABLET PO SCH (09:56)
[2017-04-20] MEDS: AZITHROMYCIN 250 MG TABLET PO SCH (09:57)
[2017-04-20] MEDS: OLANZAPINE 5 MG TABLET PO SCH ×2 (09:57→21:24)
[2017-04-20] MEDS: GUAIFENESIN 600 MG TABLET.SA PO SCH ×2 (09:57→21:24)
[2017-04-20] MEDS: FOLIC ACID 1 MG TABLET PO SCH (09:57)
[2017-04-20] MEDS: CEFTRIAXONE SODIUM 1,000 MG in NORMAL SALINE 100 ML IV SCH (12:58)
--- NOTE | 2017-04-20 16:15 | PDOC PROGRESS REPORT ---
Subjective Progress Note for:: 04/20/17 Subjective:: 36-year-old female with past medical history of unclear psychiatric illness suggestive of untreated schizoaffective disorder, COPD, tobacco and alcohol dependence who was admitted 04/16 for a left lower pneumonia with COPD exacerbation. Patient seen on rounds, she is resting comfortably in bed on room air. she is drowsy but arousable and participatory in care. Patient states she is feeling better this morning. She denies chest pain, dizziness, or malaise. No wheezing auscultated this morning. Reason For Visit: COPD EXACERBATION,PNEUMONIA Physical Exam Vital Signs: Temp Pulse Resp BP Pulse Ox 97.9 F 101 H 16 120/70 97 04/20/17 12:17 04/20/17 13:43 04/20/17 13:43 04/20/17 12:17 04/20/17 13:43 Intake & Output 04/19/17 04/20/17 04/21/17 06:59 06:59 06:59 Intake Total 1308 2345 Balance 1308 2345 Weight 56.9 kg 57.6 kg General appearance: PRESENT: no acute distress Eye exam: PRESENT: conjunctiva pink Mouth exam: PRESENT: moist Neck exam: PRESENT: full ROM Respiratory exam: PRESENT: clear to auscultation gutierrez Cardiovascular exam: PRESENT: +S1, +S2 Pulses: PRESENT: normal radial pulses GI/Abdominal exam: PRESENT: normal bowel sounds, soft Rectal exam: PRESENT: deferred Extremities exam: PRESENT: full ROM Musculoskeletal exam: PRESENT: full ROM Neurological exam: PRESENT: alert, awake, oriented to person, oriented to place , oriented to time, oriented to situation Skin exam: PRESENT: intact Results Laboratory Results: 04/20/17 03:51 04/20/17 03:51 04/20/17 04/20/17 03:51 03:51 WBC 7.6 RBC 3.72 Hgb 11.4 L Hct 34.2 L MCV 92 MCH 30.7 MCHC 33.4 RDW 17.9 H Plt Count 184 Seg Neutrophils % 75.4 Lymphocytes % 18.2 Monocytes % 6.2 Eosinophils % 0.0 Basophils % 0.2 Absolute Neutrophils 5.7 Absolute Lymphocytes 1.4 Absolute Monocytes 0.5 Absolute Eosinophils 0.0 Absolute Basophils 0.0 Sodium 136.6 L Potassium 3.9 Chloride 102 Carbon Dioxide 27 Anion Gap 8 BUN 13 Creatinine 0.71 Est GFR ( Amer) > 60 Est GFR (Non-Af Amer) > 60 Glucose 115 H Calcium 10.4 H Phosphorus 1.3 L Magnesium 1.9 Impressions: Chest X-Ray 04/16/17 18:17 IMPRESSION: Improved aeration. Patchy upper lobe opacity is not as evident on today's study. Status: Imported from PACS Assessment & Plan - Diagnosis (1) Pneumonia Qualifiers: Pneumonia type: due to unspecified organism Laterality: left Lung location: upper lobe of lung Qualified Code(s): J18.1 - Lobar pneumonia, unspecified organism Is this a current diagnosis for this admission?: Yes Plan: Left upper lobe pneumonia and COPD exacerbation. Patient is currently on room air, she does not require supplemental oxygen to maintain her sats above 88%. Continue IV Rocephin and azithromycin for pneumonia. Schedule duo nebs and as needed Xopenex. Continue scheduled Mucinex twice daily. Incentive spirometer at bedside. I am concerned that this patient will not adhere to outpatient antibiotic treatment - she is an alcoholic, untreated psychiatric disorder, and uninsured. My plan is to keep her inpatient for 5 days to complete her IV antibiotic course. Barring any complications, the patient should be able to go home on Friday 04/21 (2) COPD exacerbation Is this a current diagnosis for this admission?: Yes Plan: COPD in the setting of the left upper lobe pneumonia. Mild wheezing heard in bilateral lung bases. PO prednisone started, plan cleared with Dr. Lawler. She did not feel that there would be any indication to withhold steroids considering the patient's current mental health status. (3) Alcohol dependence Qualifiers: Substance use status: unspecified alcohol-induced disorder Qualified Code(s ): F10.29 - Alcohol dependence with unspecified alcohol-induced disorder Is this a current diagnosis for this admission?: Yes Plan: Patient states that she drinks 1/5 of hard liquor every day. She states she is allergic to Ativan, she is currently on scheduled Valium, wean as tolerated. Thiamine and folic acid supplements as ordered. Seizure precautions are in place. (4) Tobacco dependency Is this a current diagnosis for this admission?: Yes Plan: Smoking cessation is encouraged in nicotine replacement therapy has been provided (5) Agitation Is this a current diagnosis for this admission?: Yes Plan: No agitation this morning, patient is observed to be calm with appropriate affect. It was reported that the patient was agitated on admission. Agitation concerning for undiagnosed schizoaffective disorder with alcohol dependence. Patient has been evaluated by Dr. Lawler. The patient is currently on Zyprexa 5 mg twice daily, BuSpar 10 mg nightly, Cogentin 1 mg nightly. Will likely need outpatient psych referral upon discharge - Time Time Spent with patient: 15-24 minutes Medications reviewed and adjusted accordingly: Yes Anticipated discharge: Home Within: within 24 hours - Inpatient Certification Based on my medical assessment, after consideration of the patient's comorbidities, presenting symptoms, or acuity I expect that the services needed warrant INPATIENT care.: Yes I certify that my determination is in accordance with my understanding of Medicare's requirements for reasonable and necessary INPATIENT services [42 CFR 412.3e].: Yes Medical Necessity: Need for IV Antibiotics - Plan Summary Plan Summary: discharge home on Friday 04/21
[2017-04-20] MEDS: BUSPIRONE HCL 10 MG TABLET PO SCH (21:24)
[2017-04-20] MEDS: BENZTROPINE MESYLATE 1 MG TABLET PO SCH (21:24)
[2017-04-21] MEDS: IPRATROPIUM/ALBUTEROL 0.5-2.5 MG/3 ML AMPUL NEB SCH ×2 (01:29→07:55)
[2017-04-21 04:36] LABS: HEMATOCRIT 34.6 % (36.0-47.0); HEMOGLOBIN 11.5 g/dL (12.0-15.5); MEAN CORPUSCULAR HEMOGLOBIN 30.7 pg (27.0-33.4); MEAN CORPUSCULAR HGB CONC 33.2 g/dL (32.0-36.0); MEAN CORPUSCULAR VOLUME 92 fl (80-97); PLATELET COUNT 202 10^3/uL (150-450); RED BLOOD COUNT 3.75 10^6/uL (3.72-5.28); RED CELL DISTRIBUTION WIDTH 18.1 % (11.5-14.0); WHITE BLOOD COUNT 10.2 10^3/uL (4.0-10.5)
[2017-04-21 04:55] LABS: ANION GAP 8 (5-19); BLOOD UREA NITROGEN 17 mg/dL (7-20); CALCIUM 10.3 mg/dL (8.4-10.2); CARBON DIOXIDE 24 mmol/L (22-30); CHLORIDE 104 mmol/L (98-107); GLUCOSE 80 mg/dL (75-110); PHOSPHORUS 2.4 mg/dL (2.5-4.5); POTASSIUM 3.7 mmol/L (3.6-5.0); SODIUM 135.8 mmol/L (137-145)
[2017-04-21 05:04] LABS: ABSOLUTE LYMPHOCYTES# (MANUAL) 2.8 10^3/uL (0.5-4.7); ABSOLUTE MONOCYTES # (MANUAL) 0.8 10^3/uL (0.1-1.4); ABSOLUTE NEUTROPHILS# (MANUAL) 6.6 10^3/uL (1.7-8.2); BAND NEUTROPHILS % (MANUAL) 2 % (3-5); BASOPHILS % (MANUAL) 0 % (0-2); EOSINOPHILS % (MANUAL) 0 % (0-6); LYMPHOCYTES % (MANUAL) 27 % (13-45); MONOCYTES % (MANUAL) 8 % (3-13); SEGMENTED NEUTROPHILS % (MAN) 63 % (42-78); TOTAL CELLS COUNTED 100
[2017-04-21 05:06] LABS: ANISOCYTOSIS 2+; PLATELET COMMENT ADEQUATE; PLATELET GIANT PRESENT; PLATELET LARGE PRESENT; SCHISTOCYTES SLIGHT; TEAR DROP CELLS SLIGHT; TOXIC GRANULATION 1+
[2017-04-21] MEDS: HEPARIN SOD (PORCINE) 5,000 UNIT/ML 1 ML SYRINGE SUBCUT SCH (06:26)
[2017-04-21] MEDS: DIAZEPAM INJ 10 MG/2 ML DISP.SYRIN IV SCH ×2 (06:26→11:52)
[2017-04-21] MEDS: FOLIC ACID 1 MG TABLET PO SCH (09:09)
[2017-04-21] MEDS: OLANZAPINE 5 MG TABLET PO SCH (09:09)
[2017-04-21] MEDS: GUAIFENESIN 600 MG TABLET.SA PO SCH (09:09)
[2017-04-21] MEDS: AZITHROMYCIN 250 MG TABLET PO SCH (09:09)
[2017-04-21] MEDS: THIAMINE HCL 100 MG TABLET PO SCH (09:10)
[2017-04-21] MEDS: FLUTICASONE NASAL SPRAY 50 MCG/SPRY 120 SPRAY/16 GM NASL SCH (09:14)
[2017-04-21] MEDS ORDERED: PREDNISONE 20 MG TABLET PO SCH (10:00)
[2017-04-21] MEDS ORDERED: ALBUTEROL SULFATE HFA (90 MCG/PUFF) 200 PUFF/8.5 GM MDI IH PRN (10:19)
[2017-04-21] MEDS: CEFTRIAXONE SODIUM 1,000 MG in NORMAL SALINE 100 ML IV SCH (11:53)
[2017-04-21 13:23] VITALS: BP 120/71
--- NOTE | 2017-04-21 13:56 | PDOC DISCHARGE SUMMARY ---
General - Admit/Disc Date/PCP Admission Date/Primary Care Provider: 04/16/17 19:16 Discharge Date: 04/21/17 - Discharge Diagnosis (1) Pneumonia Is this a current diagnosis for this admission?: Yes Summary: Community-acquired pneumonia. The patient originally presented with wheezing, rhonci, and tachypnea. Treated for 5 days with IV Rocephin and p.o. azithromycin. She had scheduled duo nebs as well as as needed Xopenex. Scheduled Mucinex twice daily. Incentive spirometer at bedside. There was concern that the patient would not adhere to outpatient antibiotic treatment - she is an alcoholic, untreated psychiatric disorder, and uninsured. She remained inpatient for 5 days to complete her IV antibiotic course. There were no complications during her inpatient stay (2) COPD exacerbation Is this a current diagnosis for this admission?: Yes Summary: I do not believe the patient has COPD. She has not been hospitalized in the past for respiratory complaints, she denied recurrent bronchitis, and does not have typical COPD anatomical changes seem on xray. While I can't officially say she doesn't have COPD without PFTs, at this time my clinical suspicion is very low. She presented to the hospital with wheezing, which I believe to be an asthma exacerbation secondary to her PNA. The patient was sent home on a Prednisone taper and with a ProAir albuterol inhaler. (3) Alcohol dependence Is this a current diagnosis for this admission?: Yes Summary: The patient states that she drinks 1/5 of hard liquor every day. She states that she drinks due to her anxiety. Patient is allergic to Ativan, while inpatient she was on scheduled Valium. Thiamine and folic acid supplements were also ordered. Seizure precautions were in place. The patient was discharged with a prescription for BuSpar and recommended to follow-up with [facility]. She was encouraged not to drink alcohol as that would potentially make her anxiety worse, and with lowered inhibitions, she may start smoking again. (4) Tobacco dependency Is this a current diagnosis for this admission?: Yes Summary: Smoking cessation is encouraged. The patient states that she wants to stop smoking. She states that she smokes when she feels anxious. The patient was given a prescription for Buspar to help curb her anxiety, which may prevent her from smoking. The patient does not have health insurance, and this particular anti-anxiety medication is on the $4 prescription list at [facility]. (5) Agitation Is this a current diagnosis for this admission?: Yes Summary: I never observed the patient to be agitated, this was reported only by the admitting hospitalist. The patient was evaluated by Dr. Lawler from Psych, and she deemed the patient mentally competent and without psychiatric disorder - Additional Information Resuscitation Status: Full Code Discharge Diet: As Tolerated Discharge Activity: Activity As Tolerated Prescriptions: Albuterol Sulfate [Proair HFA Inhalation Aerosol 8.5 gm MDI] 2 puff IH Q4HP PRN #1 hfa.[email or web address] PRN Reason: Shortness Of Breath Buspirone HCl [Buspar 10 mg Tablet] 10 mg PO QHS #30 tablet Home Medications: Albuterol Sulfate [Proair HFA Inhalation Aerosol 8.5 gm MDI] 2 puff IH Q4HP PRN 04/17/17 Albuterol Sulfate [Proair HFA Inhalation Aerosol 8.5 gm MDI] 2 puff IH Q4HP PRN #1 hfa.aer.[email or web address] 04/21/17 Buspirone HCl [Buspar 10 mg Tablet] 10 mg PO QHS #30 tablet 04/21/17 History of Present Illness Patient complains of: Shortness of breath & cough History of Present Illness: TACHO SALINAS is a 36 year old female who presented to the emergency department after 1 week of worsening cough and congestion. She was supposed to be admitted for a left upper lobe pneumonia but left AMA prior to treatment. She returned on the for the same symptoms and was admitted to the third floor. She was started on IV Rocephin and p.o. azithromycin for community- acquired pneumonia. She received IV steroids and scheduled duo nebs as well as PRN Xopenex for her dyspnea and wheezing. she was started on BuSpar and Zyprexa for her "undiagnosed psychotic disorder," as well as as needed IV Haldol for her "undiagnosed psychiatric illness." Once the patient was seen by Dr. Lawler ([facility]), it was determined that the patient has severe anxiety, but no evidence of schizophrenia/hallucinations/psychosis. The patient was treated with IV Valium for her alcohol withdrawal as she has an allergy to Ativan. On hospital day 3 the patient stated that she felt much better and that her wheezing was all but gone. The patient's symptoms have greatly improved at that time but there was concern that she would not adhere to outpatient antibiotic therapy, so she remained inpatient for a total of 5 days to receive a full course of antibiotics for her community-acquired pneumonia. Prior to discharge, the patient was scheduled an appointment at the [facility] to establish primary care, and to use as a resource for free prescription medication refills. Hospital Course Hospital Course: see above Physical Exam Vital Signs: Temp Pulse Resp BP Pulse Ox 97.8 F 121 H 17 123/75 94 04/21/17 12:39 04/21/17 12:39 04/21/17 12:39 04/21/17 12:39 04/21/17 12:39 Intake & Output 04/20/17 04/21/17 04/22/17 06:59 06:59 06:59 Intake Total 2345 1910 573 Balance 2345 1910 573 Weight 57.6 kg 58.6 kg General appearance: PRESENT: no acute distress Head exam: PRESENT: atraumatic Eye exam: PRESENT: PERRLA Mouth exam: PRESENT: moist Neck exam: PRESENT: full ROM Respiratory exam: PRESENT: clear to auscultation gutierrez Cardiovascular exam: PRESENT: +S1, +S2 Pulses: PRESENT: normal radial pulses, +1 pedal pulses bilateral GI/Abdominal exam: PRESENT: normal bowel sounds, soft Rectal exam: PRESENT: deferred Extremities exam: PRESENT: full ROM Musculoskeletal exam: PRESENT: full ROM Neurological exam: PRESENT: alert, awake, oriented to person, oriented to place , oriented to time, oriented to situation Psychiatric exam: PRESENT: appropriate affect Results Laboratory Results: 04/21/17 04:02 04/21/17 04:02 04/21/17 04/21/17 04:02 04:02 WBC 10.2 RBC 3.75 Hgb 11.5 L Hct 34.6 L MCV 92 MCH 30.7 MCHC 33.2 RDW 18.1 H Plt Count 202 Seg Neutrophils % Not Reportable Lymphocytes % Not Reportable Monocytes % Not Reportable Eosinophils % Not Reportable Basophils % Not Reportable Absolute Neutrophils Not Reportable Absolute Lymphocytes Not Reportable Absolute Monocytes Not Reportable Absolute Eosinophils Not Reportable Absolute Basophils Not Reportable Sodium 135.8 L Potassium 3.7 Chloride 104 Carbon Dioxide 24 Anion Gap 8 BUN 17 Creatinine 0.73 Est GFR ( Amer) > 60 Est GFR (Non-Af Amer) > 60 Glucose 80 Calcium 10.3 H Phosphorus 2.4 L Magnesium 1.9 Impressions: Chest X-Ray 04/16/17 18:17 IMPRESSION: Improved aeration. Patchy upper lobe opacity is not as evident on today's study. Status: Imported from PACS Qualifiers - * PATEINT BEING DISCHARGED WITH ANY OF THE FOLLOWING DIAGNOSIS?: No Plan Discharge Plan: Discharge home Time Spent: Less than 30 Minutes
== END 2017-04-21 13:55 | disposition home or self-care (01) | DRG 194 ==
LOC: ER 17:50 → EH 19:16 → 3S 04-17 19:48 → 3W 04-20 16:03
PROVIDERS: ADMIT Internal Medicine; ATTEND Internal Medicine
DX: J18.1 Lobar pneumonia, unspecified organism (principal); F10.239 Alcohol dependence with withdrawal, unspecified; J44.0 Chronic obstructive pulmonary disease with (acute) lower respiratory infection; J44.1 Chronic obstructive pulmonary disease with (acute) exacerbation; F41.9 Anxiety disorder, unspecified; R09.02 Hypoxemia; F17.210 Nicotine dependence, cigarettes, uncomplicated; Z71.6 Tobacco abuse counseling
CPT/HCPCS: 36415; 71046; 80048; 80053; 81001; 82803; 83735; 84100; 85025; 85027; 87040; 87804; 94640; 94667; 94668; 94799; 99284; 99406; J0360; J0456; J0696; J1630; J1644; J2920; J3360; J3411; J3490; J7050; J7060; J7512; J7620

== ENCOUNTER → 2017-05-03 | Outpatient (CLI) | payer SELFPAY ==
--- NOTE | 2017-05-03 13:00 | RADIOLOGY REPORT (SQ) ---
EXAM DESCRIPTION: CHEST PA/LAT COMPLETED DATE/TIME: 05/03/2017 12:44 pm REASON FOR STUDY: R06.00 DYSPNEA, UNSPECIFIED COMPARISON: 04/16/2017 and 04/15/2017. EXAM PARAMETERS: NUMBER OF VIEWS: two views TECHNIQUE: Digital Frontal and Lateral radiographic views of the chest acquired. RADIATION DOSE: NA LIMITATIONS: none FINDINGS: LUNGS AND PLEURA: No opacities, masses or pneumothorax. No pleural effusion. MEDIASTINUM AND HILAR STRUCTURES: No masses or contour abnormalities. HEART AND VASCULAR STRUCTURES: Heart normal size. No evidence for failure. BONES: No acute findings. HARDWARE: None in the chest. OTHER: No other significant finding. IMPRESSION: NO SIGNIFICANT RADIOGRAPHIC FINDING IN THE CHEST. TECHNICAL DOCUMENTATION: JOB ID: [id number] [employer]- All Rights Reserved Reading location - IP/workstation name: [email or web address]
== END ==
LOC: RAD 12:21
DX: R06.00 Dyspnea, unspecified (principal)
CPT/HCPCS: 71046

== ENCOUNTER 2017-06-08 16:39 | Inpatient (IN) | payer MEDICAID ==
[2017-06-08] MEDS ORDERED: ONDANSETRON 4 MG TAB.RAPDIS PO ONE (17:41)
[2017-06-08] MEDS ORDERED: NORMAL SALINE 1000 ML 1,000 ML IV ONE ×2 (17:41→19:29)
--- NOTE | 2017-06-08 17:44 | ER Document Report ---
ED Medical Screen (RME) - General Chief Complaint: Abdominal Pain Stated Complaint: ABDOMINAL PAIN Time Seen by Provider: 06/08/17 17:35 Notes: 36-year-old female alcoholic complains of nausea vomiting for the past 3 days. She also complains of pain throughout her abdomen. She reports her last episode of pancreatitis was 4 years ago and it was alcohol related. She quit drinking 3 days ago when she began the nausea and vomiting. She also reports some bright red blood coming from her rectum a few days ago. I have greeted and performed a rapid initial assessment of this patient. A comprehensive ED assessment and evaluation of the patient, analysis of test results and completion of the medical decision making process will be conducted by additional ED providers. TRAVEL OUTSIDE OF THE [place] IN LAST 30 DAYS: No - Related Data Allergies/Adverse Reactions: lorazepam [From Ativan] Allergy (Verified 06/08/17 16:40) Past Medical History - Social History Chew tobacco use (# tins/day): No Frequency of alcohol use: heavy until 2 days ago Drug Abuse: None Pulmonary Medical History: Reports: Hx Asthma, Hx COPD Renal/ Medical History: Denies: Hx Peritoneal Dialysis Psychiatric Medical History: Reports: Hx Schizoaffective Disorder Denies: Hx Depression Past Surgical History: Reports: Hx Adenoidectomy, Hx Section, Hx Tonsillectomy, Hx Tubal Ligation - Immunizations Immunizations up to date: Yes Hx Diphtheria, Pertussis, Tetanus Vaccination: Yes - 2014 History of Influenza Vaccine for 11/2016 - 04/2017 Season: Refused Physical Exam - Vital signs Vitals: Temp Pulse Resp BP Pulse Ox 98.1 F 123 H 20 126/97 H 99 06/08/17 16:43 06/08/17 16:43 06/08/17 16:43 06/08/17 16:43 06/08/17 16:43 Course - Vital Signs Vital signs: Temp Pulse Resp BP Pulse Ox 98.1 F 123 H 20 126/97 H 99 06/08/17 16:43 06/08/17 16:43 06/08/17 17:27 06/08/17 16:43 06/08/17 16:43
[2017-06-08 18:34] LABS: ABSOLUTE LYMPHOCYTES (AUTO) 0.8 10^3/uL (0.5-4.7); ABSOLUTE MONOCYTES (AUTO) 1.2 10^3/uL (0.1-1.4); ABSOLUTE NEUT (AUTO) 8.3 10^3/uL (1.7-8.2); BASOPHILS % (AUTO) 0.4 % (0-2); HEMATOCRIT 43.6 % (36.0-47.0); HEMOGLOBIN 15.2 g/dL (12.0-15.5); LYMPHOCYTES % (AUTO) 7.9 % (13-45); MEAN CORPUSCULAR HEMOGLOBIN 32.4 pg (27.0-33.4); MEAN CORPUSCULAR HGB CONC 34.9 g/dL (32.0-36.0); MEAN CORPUSCULAR VOLUME 93 fl (80-97); MONOCYTES % (AUTO) 11.4 % (3-13); PLATELET COUNT 252 10^3/uL (150-450); RED CELL DISTRIBUTION WIDTH 20.3 % (11.5-14.0); SEGMENTED NEUTROPHILS % (AUTO) 80.3 % (42-78); TOTAL CELLS COUNTED % (AUTO) 100 %; WHITE BLOOD COUNT 10.3 10^3/uL (4.0-10.5)
--- NOTE | 2017-06-08 19:00 | ER Document Report ---
ED GI/ - General Chief Complaint: Abdominal Pain Stated Complaint: ABDOMINAL PAIN Time Seen by Provider: 06/08/17 17:35 Mode of Arrival: Ambulatory Information source: Patient TRAVEL OUTSIDE OF THE [place] IN LAST 30 DAYS: No - HPI Patient complains to provider of: Abdominal pain, Vomiting Onset: Other - 3 days Timing/Duration: Persistent Quality of pain: Achy, Sharp Severity at maximum: Moderate Severity in ED: Moderate Pain Level: 4 Location: Epigastric Associated symptoms: Dysuria, Nausea, Vomiting Exacerbated by: Denies Relieved by: Denies Similar symptoms previously: Yes Recently seen / treated by doctor: No Notes: 06/08/17 18:58 Patient is a 36-year-old female presenting to the emergency room today complaining of epigastric abdominal pain with nausea and vomiting that has been going on for the past 3 days, patient has a history of alcohol abuse, she has been trying to cut back on her alcohol and has not had a drink for the past 3 days since her vomiting started, she does report decreased urination with burning sensation when she does urinate, denies any blood in her urine, no fevers, no sick contacts, history of pancreatitis in the past with similar symptoms - Related Data Allergies/Adverse Reactions: lorazepam [From Ativan] Allergy (Verified 06/08/17 16:40) Past Medical History - General Information source: Patient - Social History Smoking Status: Current Every Day Smoker Chew tobacco use (# tins/day): No Frequency of alcohol use: heavy until 2 days ago Drug Abuse: None Family History: Malignancy - family hx of throat cancer. denies: CAD, CVA, DM, Hyperlipidemia, Hypertension, Thyroid Disfunction Patient has suicidal ideation: No Patient has homicidal ideation: No Pulmonary Medical History: Reports: Hx Asthma, Hx COPD Renal/ Medical History: Denies: Hx Peritoneal Dialysis Psychiatric Medical History: Reports: Hx Schizoaffective Disorder Denies: Hx Depression Past Surgical History: Reports: Hx Adenoidectomy, Hx Section, Hx Tonsillectomy, Hx Tubal Ligation - Immunizations Immunizations up to date: Yes Hx Diphtheria, Pertussis, Tetanus Vaccination: Yes - 2014 Review of Systems - Review of Systems Constitutional: No symptoms reported EENT: No symptoms reported Cardiovascular: No symptoms reported Respiratory: No symptoms reported Gastrointestinal: See HPI Genitourinary: No symptoms reported Female Genitourinary: No symptoms reported Musculoskeletal: No symptoms reported Skin: No symptoms reported Hematologic/Lymphatic: No symptoms reported Neurological/Psychological: No symptoms reported Physical Exam - Vital signs Vitals: Temp Pulse Resp BP Pulse Ox 98.1 F 123 H 20 126/97 H 99 06/08/17 16:43 06/08/17 16:43 06/08/17 16:43 06/08/17 16:43 06/08/17 16:43 Interpretation: Tachycardic - General General appearance: Appears well, Alert - HEENT Head: Normocephalic, Atraumatic Eyes: Normal Pupils: PERRL - Respiratory Respiratory status: No respiratory distress Chest status: Nontender Breath sounds: Normal Chest palpation: Normal - Cardiovascular Rhythm: Regular Heart sounds: Normal auscultation Murmur: No - Abdominal Inspection: Normal Distension: No distension Bowel sounds: Normal Tenderness: Tender - epigastric Organomegaly: No organomegaly - Back Back: Normal, Nontender - Extremities General upper extremity: Normal inspection, Nontender, Normal color, Normal ROM , Normal temperature General lower extremity: Normal inspection, Nontender, Normal color, Normal ROM , Normal temperature, Normal weight bearing. No: Warren's sign - Neurological Neuro grossly intact: Yes Cognition: Normal Orientation: AAOx4 Jessica Coma Scale Eye Opening: Spontaneous [place] Coma Scale Verbal: Oriented Jessica Coma Scale Motor: Obeys Commands Jessica Coma Scale Total: 15 Speech: Normal Motor strength normal: LUE, RUE, LLE, RLE Sensory: Normal - Psychological Associated symptoms: Normal affect, Normal mood - Skin Skin Temperature: Warm Skin Moisture: Dry Skin Color: Normal Course - Re-evaluation Re-evalutation: 06/09/17 01:16 Patient's symptoms consistent with acute pancreatitis, laboratory studies confirm this, she has a history of chronic alcoholism and stopped drinking 3 days prior secondary to epigastric pain with nausea and vomiting, she has not had any seizure activity, experiences tremors at times but these were not observed during my evaluation, patient however was discussed with the hospitalist who agrees to admit for further evaluation and treatment for pancreatitis, patient in agreement as well, stable at time of transfer of care - Vital Signs Vital signs: Temp Pulse Resp BP Pulse Ox 98.7 F 77 16 137/74 H 96 06/08/17 23:23 06/09/17 00:09 06/08/17 23:23 06/08/17 23:23 06/08/17 23:23 - Laboratory Result Diagrams: 06/08/17 18:20 06/08/17 18:20 Laboratory results interpreted by me: 06/08/17 06/08/17 06/08/17 18:20 18:20 18:20 RDW 20.3 H Seg Neutrophils % 80.3 H Lymphocytes % 7.9 L Absolute Neutrophils 8.3 H Sodium 129.5 L Potassium 5.1 H Chloride 79 L Carbon Dioxide 20 L Anion Gap 31 H BUN 33 H Est GFR (Non-Af Amer) 53 L Glucose 116 H Calcium 11.0 H Phosphorus 2.1 L Direct Bilirubin 0.9 H AST 269 H ALT 81 H Total Protein 9.0 H Albumin 5.6 H Lipase 9632.3 H Urine Protein Urine Ketones Urine Blood Urine Bilirubin Urine Urobilinogen Ur Leukocyte Esterase 06/08/17 19:40 RDW Seg Neutrophils % Lymphocytes % Absolute Neutrophils Sodium Potassium Chloride Carbon Dioxide Anion Gap BUN Est GFR (Non-Af Amer) Glucose Calcium Phosphorus Direct Bilirubin AST ALT Total Protein Albumin Lipase Urine Protein >=500 H Urine Ketones 80 H Urine Blood SMALL H Urine Bilirubin SMALL H Urine Urobilinogen 4.0 H Ur Leukocyte Esterase TRACE H Discharge - Discharge Clinical Impression: Acute pancreatitis Qualifiers: Pancreatitis type: alcohol induced Acute pancreatitis complication: no infection or necrosis Qualified Code(s): K85.20 - Alcohol induced acute pancreatitis without necrosis or infection Condition: Fair Disposition: ADMITTED INPATIENT Admitting Provider: Hospitalist Unit Admitted: Medical Floor
[2017-06-08 19:01] LABS: ALANINE AMINOTRANSFERASE 81 U/L (9-52); ALBUMIN 5.6 g/dL (3.5-5.0); ALKALINE PHOSPHATASE 118 U/L (38-126); ASPARTATE AMINO TRANSFERASE 269 U/L (14-36); BILIRUBIN,DIRECT 0.9 mg/dL (0.0-0.4); BILIRUBIN,TOTAL 1.3 mg/dL (0.2-1.3); BLOOD UREA NITROGEN 33 mg/dL (7-20); GLUCOSE 116 mg/dL (75-110)
[2017-06-08 19:24] LABS: LIPASE 9632.3 U/L (23-300)
[2017-06-08 19:25] LABS: CARBON DIOXIDE 20 mmol/L (22-30); CHLORIDE 79 mmol/L (98-107); POTASSIUM 5.1 mmol/L (3.6-5.0)
[2017-06-08 19:26] LABS: ANION GAP 31 (5-19); SODIUM 129.5 mmol/L (137-145)
[2017-06-08] MEDS ORDERED: ACETAMINOPHEN 325 MG TABLET PO PRN (20:26)
[2017-06-08] MEDS ORDERED: HYDRALAZINE HCL INJ/PF 20 MG/1 ML SDV IV PRN (20:26)
[2017-06-08] MEDS ORDERED: HALOPERIDOL LACTATE INJ 5 MG/1 ML VIAL IV PRN (20:26)
[2017-06-08] MEDS ORDERED: IPRATROPIUM/ALBUTEROL 0.5-2.5 MG/3 ML AMPUL NEB PRN (20:28)
[2017-06-08 21:19] LABS: URINE AMPHETAMINES SCREEN NEGATIVE; URINE BARBITURATES SCREEN NEGATIVE; URINE BENZODIAZEPINES SCREEN UNCONFIRMED POSITIVE; URINE COCAINE SCREEN NEGATIVE; URINE MARIJUANA (THC) SCREEN UNCONFIRMED POSITIVE; URINE METHADONE SCREEN NEGATIVE; URINE PHENCYCLIDINE SCREEN NEGATIVE
[2017-06-08 21:22] LABS: PHOSPHORUS 2.1 mg/dL (2.5-4.5)
[2017-06-08] MEDS: DIAZEPAM INJ 10 MG/2 ML DISP.SYRIN IV SCH (21:24)
[2017-06-08 22:10] LABS: APPEARANCE,URINE CLOUDY; BILIRUBIN,URINE SMALL (NEGATIVE); COLOR,URINE AMBER; GLUCOSE, URINE NEGATIVE (NEGATIVE); KETONES,URINE 80 mg/dL (NEGATIVE); LEUKOCYTE ESTERASE,URINE TRACE (NEGATIVE); NITRITE,URINE NEGATIVE (NEGATIVE); PROTEIN,URINE >=500 mg/dL (NEGATIVE); URINE SPECIFIC GRAVITY 1.032
[2017-06-08] MEDS: KETOROLAC TROMETHAMINE INJ/PF 30 MG/1 ML SDV IV PRN (22:29)
[2017-06-08] MEDS: THIAMINE HCL 100 MG, FOLIC ACID 1 MG in NORMAL SALINE 250 ML IV SCH (22:35)
[2017-06-08] MEDS: HEPARIN SOD (PORCINE) 5,000 UNIT/ML 1 ML SYRINGE SUBCUT SCH (22:39)
[2017-06-09] MEDS: FAMOTIDINE INJ/PF 20 MG/2 ML SDV IV PRN (00:24)
[2017-06-09] MEDS: NORMAL SALINE 1000 ML 1,000 ML IV SCH ×3 (00:54→03:25)
[2017-06-09] MEDS ORDERED: NICOTINE 7 MG/24 HR PATCH.TD24 TD ONE (00:55)
[2017-06-09] MEDS ORDERED: NICOTINE 7 MG/24 HR PATCH.TD24 TD PRN (00:55)
[2017-06-09] MEDS ORDERED: CALCIUM CARBONATE 500 MG TAB.CHEW PO PRN (00:56)
[2017-06-09] MEDS: DIAZEPAM INJ 10 MG/2 ML DISP.SYRIN IV SCH ×4 (01:51→21:27)
[2017-06-09] MEDS: HEPARIN SOD (PORCINE) 5,000 UNIT/ML 1 ML SYRINGE SUBCUT SCH ×3 (05:36→21:34)
--- NOTE | 2017-06-09 06:42 | PDOC H&P ---
History of Present Illness Admission Date/PCP: 06/08/17 20:36 Patient complains of: Abdominal pain History of Present Illness: TACHO SALINAS is a 36 year old female with a past medical history of bipolar, pancreatitis, tobacco and alcohol dependence. Patient presents with 3 days of abdominal pain worsened by p.o. intake. Patient had associated nausea without vomiting and loose stools. Patient recognizes symptoms from previous episode prompting evaluation emergency room where she is found to have a markedly elevated lipase. She receives symptomatic management, normal saline and referred to the hospitalist for admission. Past Medical History Pulmonary Medical History: Reports: Asthma, Chronic Obstructive Pulmonary Disease (COPD) Psychiatric Medical History: Reports: Alcohol Dependency, Schizoaffective Disorder, Tobacco Dependency Denies: Depression Past Surgical History Past Surgical History: Reports: Adenoidectomy, Section, Tonsillectomy, Tubal Ligation Social History Information Source: Patient Lives with: Friend Smoking Status: Current Every Day Smoker Cigarettes Packs Per Day: 0.5 Last Time Smoked: 06/08/17 Frequency of Alcohol Use: Heavy Hx Recreational Drug Use: No Drugs: None Hx Prescription Drug Abuse: No - Advance Directive Resuscitation Status: Full Code Family History Family History: Malignancy - family hx of throat cancer. denies: CAD, CVA, DM, Hyperlipidemia, Hypertension, Thyroid Disfunction Parental Family History Reviewed: Yes Children Family History Reviewed: Yes Sibling(s) Family History Reviewed.: Yes Medication/Allergy Home Medications: Albuterol Sulfate [Proair HFA Inhalation Aerosol 8.5 gm MDI] 2 puff IH Q4HP PRN 06/08/17 Allergies/Adverse Reactions: lorazepam [From Ativan] Allergy (Verified 06/08/17 16:40) Review of Systems Constitutional: PRESENT: as per HPI, anorexia, fatigue. ABSENT: chills, fever(s ), headache(s), weakness Eyes: ABSENT: visual disturbances Ears: ABSENT: hearing changes Cardiovascular: ABSENT: chest pain, dyspnea on exertion, edema, orthropnea, palpitations Respiratory: ABSENT: cough, hemoptysis Gastrointestinal: PRESENT: as per HPI, abdominal pain, bloating, heartburn, nausea. ABSENT: coffee ground emesis, constipation, diarrhea, dysphagia, melena Genitourinary: ABSENT: dysuria, hematuria Musculoskeletal: ABSENT: joint swelling Integumentary: ABSENT: rash, wounds Neurological: ABSENT: abnormal gait, abnormal speech, confusion, dizziness, focal weakness, syncope Psychiatric: PRESENT: as per HPI, anxiety. ABSENT: hallucinations, homidical ideation, suicidal ideation Endocrine: ABSENT: cold intolerance, heat intolerance, polydipsia, polyuria Hematologic/Lymphatic: ABSENT: easy bleeding, easy bruising Physical Exam Vital Signs: Temp Pulse Resp BP Pulse Ox 99.1 F 101 H 16 118/71 96 06/09/17 04:04 06/09/17 04:04 06/09/17 04:04 06/09/17 04:04 06/09/17 04:04 Intake & Output 06/07/17 06/08/17 06/09/17 11:59 11:59 11:59 Intake Total 0 Balance 0 Weight 51.1 kg General appearance: PRESENT: cooperative, mild distress, thin Head exam: PRESENT: atraumatic, normocephalic Eye exam: PRESENT: conjunctiva pink, EOMI, PERRLA. ABSENT: scleral icterus Ear exam: PRESENT: normal external ear exam Mouth exam: PRESENT: moist, tongue midline Neck exam: ABSENT: carotid bruit, JVD, lymphadenopathy, thyromegaly Respiratory exam: PRESENT: clear to auscultation gutierrez. ABSENT: rales, rhonchi, wheezes Cardiovascular exam: PRESENT: RRR. ABSENT: diastolic murmur, rubs, systolic murmur Pulses: PRESENT: normal dorsalis pedis pul Vascular exam: PRESENT: normal capillary refill GI/Abdominal exam: PRESENT: hyperactive bowel sounds, normal bowel sounds, soft , tenderness. ABSENT: distended, guarding, mass, organolmegaly, rebound Rectal exam: PRESENT: deferred Extremities exam: PRESENT: full ROM. ABSENT: calf tenderness, clubbing, pedal edema Neurological exam: PRESENT: alert, awake, oriented to person, oriented to place , oriented to time, oriented to situation, CN II-XII grossly intact. ABSENT: motor sensory deficit Psychiatric exam: PRESENT: appropriate affect, normal mood. ABSENT: homicidal ideation, suicidal ideation Skin exam: PRESENT: dry, intact, warm. ABSENT: cyanosis, rash Assessment & Plan - Diagnosis (1) Acute pancreatitis Qualifiers: Pancreatitis type: alcohol induced Acute pancreatitis complication: no infection or necrosis Qualified Code(s): K85.20 - Alcohol induced acute pancreatitis without necrosis or infection Is this a current diagnosis for this admission?: Yes Plan: Medical floor, bowel rest, symptomatic management, IV fluids follow-up Chem-7 and CBC. Education (2) Alcohol dependence Qualifiers: Substance use status: unspecified alcohol-induced disorder Qualified Code(s ): F10.29 - Alcohol dependence with unspecified alcohol-induced disorder Is this a current diagnosis for this admission?: Yes Plan: Thiamine and folate, Valium scheduled, education (3) Tobacco dependency Is this a current diagnosis for this admission?: Yes Plan: Tobacco Dependence patient received tobacco cessation counseling and offered nicotine replacement options - Time Time Spent: 50 to 70 Minutes - Inpatient Certification Medical Necessity: Need Close Monitoring Due to Risk of Patient Decompensation
[2017-06-09 07:40] LABS: ABSOLUTE LYMPHOCYTES (AUTO) 1.1 10^3/uL (0.5-4.7); ABSOLUTE MONOCYTES (AUTO) 0.7 10^3/uL (0.1-1.4); ABSOLUTE NEUT (AUTO) 3.5 10^3/uL (1.7-8.2); BASOPHILS % (AUTO) 0.2 % (0-2); EOSINOPHILS % (AUTO) 0.1 % (0-6); HEMATOCRIT 32.2 % (36.0-47.0); LYMPHOCYTES % (AUTO) 20.1 % (13-45); MEAN CORPUSCULAR HEMOGLOBIN 31.9 pg (27.0-33.4); MEAN CORPUSCULAR HGB CONC 33.9 g/dL (32.0-36.0); MEAN CORPUSCULAR VOLUME 94 fl (80-97); MONOCYTES % (AUTO) 12.8 % (3-13); PLATELET COUNT 149 10^3/uL (150-450); RED BLOOD COUNT 3.42 10^6/uL (3.72-5.28); RED CELL DISTRIBUTION WIDTH 20.1 % (11.5-14.0); SEGMENTED NEUTROPHILS % (AUTO) 66.8 % (42-78); TOTAL CELLS COUNTED % (AUTO) 100 %; WHITE BLOOD COUNT 5.2 10^3/uL (4.0-10.5)
[2017-06-09 07:41] LABS: HEMOGLOBIN 10.9 g/dL (12.0-15.5)
[2017-06-09 07:50] LABS: ALANINE AMINOTRANSFERASE 59 U/L (9-52); ALBUMIN 3.4 g/dL (3.5-5.0); ALKALINE PHOSPHATASE 73 U/L (38-126); ANION GAP 12 (5-19); ASPARTATE AMINO TRANSFERASE 152 U/L (14-36); BILIRUBIN,DIRECT 0.4 mg/dL (0.0-0.4); BILIRUBIN,TOTAL 0.8 mg/dL (0.2-1.3); BLOOD UREA NITROGEN 17 mg/dL (7-20); CALCIUM 8.5 mg/dL (8.4-10.2); CARBON DIOXIDE 23 mmol/L (22-30); CHLORIDE 102 mmol/L (98-107); GLUCOSE 70 mg/dL (75-110); POTASSIUM 4.3 mmol/L (3.6-5.0); SODIUM 137.3 mmol/L (137-145); TOTAL PROTEIN 5.6 g/dL (6.3-8.2)
[2017-06-09] MEDS: KETOROLAC TROMETHAMINE INJ/PF 30 MG/1 ML SDV IV PRN (11:27)
[2017-06-09] MEDS: NORMAL SALINE 1000 ML 1,000 ML IV PRN (11:27)
[2017-06-09] MEDS ORDERED: ONDANSETRON HCL INJ/PF 4 MG/2 ML SDV IV PRN (14:11)
[2017-06-09] MEDS ORDERED: ALBUTEROL SULFATE 0.083% NEB 2.5 MG/3 ML AMPUL NEB PRN (14:25)
--- NOTE | 2017-06-09 14:27 | PDOC PROGRESS REPORT ---
Subjective Progress Note for:: 06/09/17 Subjective:: Complains of stomach pain. Patient states that she last drink alcohol 4 days ago. Review of systems All organ systems evaluated and negative except as in subjective All laboratories and significant diagnostics have been reviewed Reason For Visit: ACUTE ON CHRONIC ALCOHOLIC PANCREATITIS Physical Exam Vital Signs: Temp Pulse Resp BP Pulse Ox 98.9 F 92 16 114/63 96 06/09/17 07:38 06/09/17 09:02 06/09/17 09:02 06/09/17 07:38 06/09/17 09:02 Intake & Output 06/08/17 06/09/17 06/10/17 06:59 06:59 06:59 Intake Total 3000 Balance 3000 Weight 51.1 kg General appearance: PRESENT: no acute distress, cooperative Head exam: PRESENT: atraumatic, normocephalic Eye exam: PRESENT: conjunctiva pink, EOMI, PERRLA Ear exam: PRESENT: normal external ear exam Mouth exam: PRESENT: moist Neck exam: PRESENT: full ROM. ABSENT: JVD, lymphadenopathy, tenderness Respiratory exam: PRESENT: clear to auscultation gutierrez Cardiovascular exam: PRESENT: RRR. ABSENT: diastolic murmur, systolic murmur Vascular exam: PRESENT: normal capillary refill GI/Abdominal exam: PRESENT: normal bowel sounds, soft, tenderness Extremities exam: PRESENT: full ROM. ABSENT: pedal edema Musculoskeletal exam: PRESENT: ambulatory Neurological exam: PRESENT: alert, awake, oriented to person, oriented to place , oriented to time, oriented to situation, CN II-XII grossly intact Psychiatric exam: PRESENT: depressed Skin exam: PRESENT: intact, normal color Results Laboratory Results: 06/09/17 06:52 06/09/17 06:52 06/09/17 06/09/17 06:52 06:52 WBC 5.2 RBC 3.42 L Hgb 10.9 L D Hct 32.2 L MCV 94 MCH 31.9 MCHC 33.9 RDW 20.1 H Plt Count 149 L Seg Neutrophils % 66.8 Lymphocytes % 20.1 Monocytes % 12.8 Eosinophils % 0.1 Basophils % 0.2 Absolute Neutrophils 3.5 Absolute Lymphocytes 1.1 Absolute Monocytes 0.7 Absolute Eosinophils 0.0 Absolute Basophils 0.0 Sodium 137.3 Potassium 4.3 Chloride 102 Carbon Dioxide 23 Anion Gap 12 BUN 17 Creatinine 0.75 Est GFR ( Amer) > 60 Est GFR (Non-Af Amer) > 60 Glucose 70 L Calcium 8.5 Total Bilirubin 0.8 AST 152 H ALT 59 H Alkaline Phosphatase 73 Total Protein 5.6 L Albumin 3.4 L Assessment & Plan - Diagnosis (1) Acute pancreatitis Qualifiers: Pancreatitis type: alcohol induced Acute pancreatitis complication: no infection or necrosis Qualified Code(s): K85.20 - Alcohol induced acute pancreatitis without necrosis or infection Is this a current diagnosis for this admission?: Yes Plan: Continue fluids. Order abdominal sonogram in the event that she may also be suffering from cholelithiasis (3) Alcohol dependence Qualifiers: Substance use status: unspecified alcohol-induced disorder Qualified Code(s ): F10.29 - Alcohol dependence with unspecified alcohol-induced disorder Is this a current diagnosis for this admission?: Yes Plan: Patient educated about the detrimental effect of alcohol in her liver. Continue current management (4) COPD exacerbation Is this a current diagnosis for this admission?: Yes Plan: Add scheduled DuoNeb's, albuterol as needed, Mucinex and Pulmicort nebulizer. - Time Time Spent with patient: 15-24 minutes Medications reviewed and adjusted accordingly: Yes Anticipated discharge: Home Within: within 72 hours - Inpatient Certification Based on my medical assessment, after consideration of the patient's comorbidities, presenting symptoms, or acuity I expect that the services needed warrant INPATIENT care.: Yes I certify that my determination is in accordance with my understanding of Medicare's requirements for reasonable and necessary INPATIENT services [42 CFR 412.3e].: Yes Medical Necessity: Significant Comorbidiites Make Outpatient Treatment Too Risky , Need Close Monitoring Due to Risk of Patient Decompensation, Need For IV Fluids
[2017-06-09] MEDS ORDERED: BUDESONIDE NEB 0.5 MG/2 ML AMPUL NEB SCH (14:30)
[2017-06-09] MEDS ORDERED: BUDESONIDE NEB 0.5 MG/2 ML AMPUL NEB ONE (15:00)
--- NOTE | 2017-06-09 17:47 | RADIOLOGY REPORT (SQ) ---
EXAM DESCRIPTION: U/S ABDOMEN COMPLETE W/O DOP COMPLETED DATE/TIME: 06/09/2017 5:34 pm REASON FOR STUDY: recurrent pancreatitis COMPARISON: None. TECHNIQUE: Dynamic and static grayscale images acquired of the abdomen and recorded on PACS. Jamaalo dl selected color Doppler and spectral images recorded. LIMITATIONS: Study limited due to acoustical interference from fat or from air in the bowel. FINDINGS: PANCREAS: Poorly seen secondary to acoustical interference from fat or from air in the bow el. No visualized masses. Duct normal caliber as seen. LIVER: Echotexture is coarse with increased echogenicity consistent with fatty infiltration. LIVER VASCULATURE: Normal directional flow of the main portal vein and hepatic veins. GALLBLADDER: No stones. Normal wall thickness. No pericholecystic fluid. ULTRASOUND-DETECTED DELGADO'S SIGN: Negative. INTRAHEPATIC DUCTS AND COMMON DUCT: CBD and intrahepatic ducts normal caliber. No filling defects. INFERIOR VENA CAVA: Normal flow. AORTA: No aneurysm. RIGHT KIDNEY: Normal size. Normal echogenicity. 1.6 cm cyst. No solid or suspicious masses. No hyd ronephrosis. No calcifications. LEFT KIDNEY: Normal size. Normal echogenicity. No solid or suspicious masses. No hydronephrosis. No calcifications. SPLEEN:Normal size. No solid masses. PERITONEAL AND PLEURAL SPACES: No ascites or effusions. OTHER: No other significant finding. IMPRESSION: FATTY INFILTRATION OF THE LIVER. NO OTHER SIGNIFICANT FINDING IN THE VISUALIZED ABDOMEN. TECHNICAL DOCUMENTATION: JOB ID: [id number] [employer]- All Rights Reserved Reading location - IP/workstation name: [email or web address]
[2017-06-09] MEDS: IPRATROPIUM/ALBUTEROL 0.5-2.5 MG/3 ML AMPUL NEB SCH (20:16)
[2017-06-09] MEDS: BUDESONIDE NEB 0.5 MG/2 ML AMPUL NEB SCH (20:16)
[2017-06-09] MEDS: THIAMINE HCL 100 MG, FOLIC ACID 1 MG in NORMAL SALINE 250 ML IV SCH (21:28)
[2017-06-09] MEDS: GUAIFENESIN 600 MG TABLET.SA PO SCH (21:34)
[2017-06-09] MEDS: OLANZAPINE 5 MG TABLET PO SCH (21:34)
[2017-06-10] MEDS: DIAZEPAM INJ 10 MG/2 ML DISP.SYRIN IV SCH ×4 (02:43→20:16)
[2017-06-10] MEDS: HEPARIN SOD (PORCINE) 5,000 UNIT/ML 1 ML SYRINGE SUBCUT SCH (05:08)
[2017-06-10] MEDS: NORMAL SALINE 1000 ML 1,000 ML IV PRN (05:27)
[2017-06-10] MEDS: FAMOTIDINE INJ/PF 20 MG/2 ML SDV IV PRN (05:28)
[2017-06-10 06:11] LABS: ALANINE AMINOTRANSFERASE 66 U/L (9-52); ALBUMIN 3.4 g/dL (3.5-5.0); ALKALINE PHOSPHATASE 78 U/L (38-126); ANION GAP 14 (5-19); ASPARTATE AMINO TRANSFERASE 251 U/L (14-36); BILIRUBIN,DIRECT 0.5 mg/dL (0.0-0.4); BILIRUBIN,TOTAL 1.1 mg/dL (0.2-1.3); BLOOD UREA NITROGEN 7 mg/dL (7-20); CARBON DIOXIDE 22 mmol/L (22-30); CHLORIDE 100 mmol/L (98-107); GLUCOSE 71 mg/dL (75-110); POTASSIUM 3.4 mmol/L (3.6-5.0); SODIUM 136.4 mmol/L (137-145); TOTAL PROTEIN 5.6 g/dL (6.3-8.2)
[2017-06-10 06:32] LABS: LIPASE 5116.8 U/L (23-300)
[2017-06-10 07:14] LABS: HEMATOCRIT 32.6 % (36.0-47.0); RED BLOOD COUNT 3.44 10^6/uL (3.72-5.28); WHITE BLOOD COUNT 5.5 10^3/uL (4.0-10.5)
[2017-06-10 07:15] LABS: ABSOLUTE NEUT (AUTO) 3.2 10^3/uL (1.7-8.2); BASOPHILS % (AUTO) 0.4 % (0-2); EOSINOPHILS % (AUTO) 0.5 % (0-6); LYMPHOCYTES % (AUTO) 28.9 % (13-45); MEAN CORPUSCULAR HEMOGLOBIN 31.9 pg (27.0-33.4); MEAN CORPUSCULAR HGB CONC 33.7 g/dL (32.0-36.0); MEAN CORPUSCULAR VOLUME 95 fl (80-97); MONOCYTES % (AUTO) 12.5 % (3-13); PLATELET COUNT 163 10^3/uL (150-450); RED CELL DISTRIBUTION WIDTH 19.8 % (11.5-14.0); SEGMENTED NEUTROPHILS % (AUTO) 57.7 % (42-78); TOTAL CELLS COUNTED % (AUTO) 100 %
[2017-06-10 07:16] LABS: ABSOLUTE LYMPHOCYTES (AUTO) 1.6 10^3/uL (0.5-4.7); ABSOLUTE MONOCYTES (AUTO) 0.7 10^3/uL (0.1-1.4)
[2017-06-10] MEDS: BUDESONIDE NEB 0.5 MG/2 ML AMPUL NEB SCH ×2 (08:07→19:59)
[2017-06-10] MEDS: IPRATROPIUM/ALBUTEROL 0.5-2.5 MG/3 ML AMPUL NEB SCH ×3 (08:07→19:59)
[2017-06-10] MEDS: NICOTINE 14 MG/24 HR PATCH.TD24 TD SCH (09:57)
[2017-06-10] MEDS: GUAIFENESIN 600 MG TABLET.SA PO SCH ×2 (10:34→21:17)
[2017-06-10] MEDS ORDERED: DEXTROSE 5%-NORMAL SALINE 1,000 ML with POTASSIUM CHLORIDE 20 MEQ IV ONE ×2 (13:31)
[2017-06-10] MEDS ORDERED: POTASSI CL 20 MEQ/D5NS 1L 1000 ML IV PRN (13:35)
--- NOTE | 2017-06-10 15:46 | PDOC PROGRESS REPORT ---
Subjective Progress Note for:: 06/10/17 Subjective:: 36 yr old female with h/o ETOH abuse and pancreatitis bipolar disorder, tobacco dependence who presented to the hospital on 06/09/17 with 3 days of abdominal pain worsened by oral intake associated with nausea and loose stools. Denied any vomiting. She was diagnosed with acute pancreatitis and started on IV fluids symptom management with analgesics and n.p.o. Lipase level has improved today. She says her abdominal pain has resolved and that she is very hungry. Reason For Visit: ACUTE ON CHRONIC ALCOHOLIC PANCREATITIS Physical Exam Vital Signs: Temp Pulse Resp BP Pulse Ox 98.3 F 72 19 113/77 99 06/10/17 11:04 06/10/17 11:04 06/10/17 11:04 06/10/17 11:04 06/10/17 11:04 Intake & Output 06/09/17 06/10/17 06/11/17 06:59 06:59 06:59 Intake Total 3000 3970 Output Total 3415 Balance 3000 555 Weight 51.1 kg 51.2 kg General appearance: PRESENT: no acute distress Head exam: PRESENT: atraumatic Eye exam: PRESENT: conjunctiva pink. ABSENT: scleral icterus Ear exam: PRESENT: normal external ear exam Neck exam: ABSENT: tracheal deviation Respiratory exam: PRESENT: symmetrical, unlabored. ABSENT: wheezes Cardiovascular exam: PRESENT: RRR Vascular exam: ABSENT: pallor GI/Abdominal exam: PRESENT: normal bowel sounds, soft. ABSENT: tenderness Rectal exam: PRESENT: deferred Extremities exam: ABSENT: calf tenderness, pedal edema Musculoskeletal exam: PRESENT: ambulatory Neurological exam: PRESENT: alert, awake, oriented to person, oriented to place , oriented to time Psychiatric exam: PRESENT: normal mood Skin exam: ABSENT: rash Results Laboratory Results: 06/10/17 07:12 06/10/17 04:45 06/10/17 06/10/17 06/10/17 04:45 04:45 07:12 WBC Cancelled 5.5 RBC Cancelled 3.44 L Hgb Cancelled 11.0 L Hct Cancelled 32.6 L MCV Cancelled 95 MCH Cancelled 31.9 MCHC Cancelled 33.7 RDW Cancelled 19.8 H Plt Count Cancelled 163 Seg Neutrophils % Cancelled 57.7 Lymphocytes % Cancelled 28.9 Monocytes % Cancelled 12.5 Eosinophils % Cancelled 0.5 Basophils % Cancelled 0.4 Absolute Neutrophils Cancelled 3.2 Absolute Lymphocytes Cancelled 1.6 Absolute Monocytes Cancelled 0.7 Absolute Eosinophils Cancelled 0.0 Absolute Basophils Cancelled 0.0 Sodium 136.4 L Potassium 3.4 L Chloride 100 Carbon Dioxide 22 Anion Gap 14 BUN 7 Creatinine 0.50 L Est GFR ( Amer) > 60 Est GFR (Non-Af Amer) > 60 Glucose 71 L Calcium 9.0 Magnesium 1.9 Total Bilirubin 1.1 AST 251 H ALT 66 H Alkaline Phosphatase 78 Total Protein 5.6 L Albumin 3.4 L Lipase 5116.8 H Impressions: Abdomen Ultrasound 06/09/17 00:00 IMPRESSION: FATTY INFILTRATION OF THE LIVER. NO OTHER SIGNIFICANT FINDING IN THE VISUALIZED ABDOMEN. Assessment & Plan - Diagnosis (1) Acute pancreatitis Qualifiers: Pancreatitis type: alcohol induced Acute pancreatitis complication: no infection or necrosis Qualified Code(s): K85.20 - Alcohol induced acute pancreatitis without necrosis or infection Is this a current diagnosis for this admission?: Yes Plan: Start clear liquid diet, Pancreatic enzymes, pain control, ETOH cessation advised. (2) Hyponatremia Is this a current diagnosis for this admission?: Yes Plan: Improving with IV fluids. (3) Hypokalemia Is this a current diagnosis for this admission?: Yes Plan: Replete (4) Hyperkalemia Is this a current diagnosis for this admission?: Yes Plan: Resolved (5) Tobacco dependence Is this a current diagnosis for this admission?: Yes Plan: Nicotine patch (6) Schizoaffective disorder Is this a current diagnosis for this admission?: Yes Plan: On Zyprexa - Time Time Spent with patient: 35 or more minutes
[2017-06-10] MEDS: LIPASE/PROTEASE/AMYLASE 1 CAP CAPSULE.DR PO SCH (20:15)
[2017-06-10] MEDS: THIAMINE HCL 100 MG, FOLIC ACID 1 MG in NORMAL SALINE 250 ML IV SCH (21:17)
[2017-06-10] MEDS: OLANZAPINE 5 MG TABLET PO SCH (21:17)
[2017-06-11] MEDS: DIAZEPAM INJ 10 MG/2 ML DISP.SYRIN IV SCH ×4 (02:23→20:30)
[2017-06-11 05:52] LABS: HEMOGLOBIN 11.3 g/dL (12.0-15.5); MEAN CORPUSCULAR HEMOGLOBIN 31.7 pg (27.0-33.4); MEAN CORPUSCULAR HGB CONC 34.1 g/dL (32.0-36.0); MEAN CORPUSCULAR VOLUME 93 fl (80-97); PLATELET COUNT 162 10^3/uL (150-450); RED BLOOD COUNT 3.55 10^6/uL (3.72-5.28); RED CELL DISTRIBUTION WIDTH 19.3 % (11.5-14.0); WHITE BLOOD COUNT 4.1 10^3/uL (4.0-10.5)
[2017-06-11 06:35] LABS: ALANINE AMINOTRANSFERASE 54 U/L (9-52); ALBUMIN 3.1 g/dL (3.5-5.0); ALKALINE PHOSPHATASE 79 U/L (38-126); ANION GAP 12 (5-19); ASPARTATE AMINO TRANSFERASE 114 U/L (14-36); BILIRUBIN,DIRECT 0.4 mg/dL (0.0-0.4); BILIRUBIN,TOTAL 0.6 mg/dL (0.2-1.3); BLOOD UREA NITROGEN 2 mg/dL (7-20); CALCIUM 9.3 mg/dL (8.4-10.2); CARBON DIOXIDE 27 mmol/L (22-30); CHLORIDE 101 mmol/L (98-107); GLUCOSE 110 mg/dL (75-110); PHOSPHORUS 1.5 mg/dL (2.5-4.5); SODIUM 139.5 mmol/L (137-145); TOTAL PROTEIN 5.6 g/dL (6.3-8.2)
[2017-06-11 06:51] LABS: POTASSIUM 2.5 mmol/L (3.6-5.0)
[2017-06-11 07:04] LABS: LIPASE 4408.8 U/L (23-300)
[2017-06-11] MEDS: IPRATROPIUM/ALBUTEROL 0.5-2.5 MG/3 ML AMPUL NEB SCH ×3 (07:23→19:41)
[2017-06-11] MEDS ORDERED: DEXTROSE 5%-NORMAL SALINE 1,000 ML with POTASSIUM CHLORIDE 40 MEQ IV PRN ×2 (07:55)
[2017-06-11] MEDS ORDERED: POTASSIUM CHLORIDE 10 MEQ TABLET.SA PO ONE ×3 (07:56→13:30)
[2017-06-11] MEDS: BUDESONIDE NEB 0.5 MG/2 ML AMPUL NEB SCH ×2 (08:06→19:41)
[2017-06-11] MEDS: GUAIFENESIN 600 MG TABLET.SA PO SCH ×2 (09:16→20:40)
[2017-06-11] MEDS: MAGNESIUM OXIDE 400 MG TABLET PO SCH ×2 (09:16→17:20)
[2017-06-11] MEDS: NICOTINE 14 MG/24 HR PATCH.TD24 TD SCH (09:16)
[2017-06-11] MEDS ORDERED: POTASSIUM PHOS,M-BASIC-D-BASIC 30 MMOL in NORMAL SALINE 500 ML IV ONE (09:30)
[2017-06-11] MEDS: POTASSI CL 20 MEQ/50 ML RIDER 20 MEQ/50 ML RTUPB IV SCH ×2 (10:04→13:12)
[2017-06-11] MEDS ORDERED: POTASSI CL 40 MEQ/D5-1/2NS 1L 1000 ML IV PRN (12:57)
[2017-06-11] MEDS: LIPASE/PROTEASE/AMYLASE 1 CAP CAPSULE.DR PO SCH ×2 (13:00→17:20)
--- NOTE | 2017-06-11 13:17 | PDOC PROGRESS REPORT ---
Subjective Progress Note for:: 06/11/17 Subjective:: 36 yr old female with h/o ETOH abuse and pancreatitis bipolar disorder, tobacco dependence who presented to the hospital on 06/09/17 with 3 days of abdominal pain worsened by oral intake associated with nausea and loose stools. Denied any vomiting. She was diagnosed with acute pancreatitis and started on IV fluids symptom management with analgesics and n.p.o. Lipase level has improved. Tolerated clear liquid diet well. Diet will be advanced to full liquids low-fat. Reason For Visit: ACUTE ON CHRONIC ALCOHOLIC PANCREATITIS Physical Exam Vital Signs: Temp Pulse Resp BP Pulse Ox 97.9 F 106 H 18 112/65 99 06/11/17 11:52 06/11/17 11:52 06/11/17 11:52 06/11/17 11:52 06/11/17 11:52 Intake & Output 06/10/17 06/11/17 06/12/17 06:59 06:59 06:59 Intake Total 3970 3390 Output Total 3415 2800 Balance 555 590 Weight 51.2 kg 52.1 kg General appearance: PRESENT: no acute distress, well-nourished Ear exam: PRESENT: normal external ear exam Neck exam: ABSENT: tracheal deviation Respiratory exam: PRESENT: clear to auscultation gutierrez, symmetrical, unlabored Cardiovascular exam: PRESENT: RRR GI/Abdominal exam: PRESENT: normal bowel sounds, soft. ABSENT: tenderness Rectal exam: PRESENT: deferred Extremities exam: ABSENT: calf tenderness, pedal edema Musculoskeletal exam: ABSENT: tenderness Neurological exam: PRESENT: alert, awake, oriented to person, oriented to place , oriented to time Psychiatric exam: PRESENT: normal mood Skin exam: ABSENT: rash, skin tears Results Laboratory Results: 06/11/17 05:43 06/11/17 05:43 06/11/17 06/11/17 05:43 05:43 WBC 4.1 RBC 3.55 L Hgb 11.3 L Hct 33.0 L MCV 93 MCH 31.7 MCHC 34.1 RDW 19.3 H Plt Count 162 Sodium 139.5 Potassium 2.5 L* Chloride 101 Carbon Dioxide 27 Anion Gap 12 BUN 2 L Creatinine 0.47 L Est GFR ( Amer) > 60 Est GFR (Non-Af Amer) > 60 Glucose 110 Calcium 9.3 Phosphorus 1.5 L Magnesium 1.8 Total Bilirubin 0.6 AST 114 H ALT 54 H Alkaline Phosphatase 79 Total Protein 5.6 L Albumin 3.1 L Lipase 4408.8 H Impressions: Abdomen Ultrasound 06/09/17 00:00 IMPRESSION: FATTY INFILTRATION OF THE LIVER. NO OTHER SIGNIFICANT FINDING IN THE VISUALIZED ABDOMEN. Assessment & Plan - Diagnosis (1) Acute pancreatitis Qualifiers: Pancreatitis type: alcohol induced Acute pancreatitis complication: no infection or necrosis Qualified Code(s): K85.20 - Alcohol induced acute pancreatitis without necrosis or infection Is this a current diagnosis for this admission?: Yes Plan: Start Full liquid diet, Pancreatic enzymes, pain control, ETOH cessation advised. (2) Hyponatremia Is this a current diagnosis for this admission?: Yes Plan: Improving with IV fluids. (3) Hypokalemia Is this a current diagnosis for this admission?: Yes Plan: Replete- PO and IV (4) Hyperkalemia Is this a current diagnosis for this admission?: Yes Plan: Resolved (5) Tobacco dependence Is this a current diagnosis for this admission?: Yes Plan: Nicotine patch (6) Schizoaffective disorder Is this a current diagnosis for this admission?: No Plan: Patient denies schizoaffective disorder or depression or any other psychiatric diagnosis - Time Time Spent with patient: 35 or more minutes
[2017-06-11] MEDS: THIAMINE HCL 100 MG, FOLIC ACID 1 MG in NORMAL SALINE 250 ML IV SCH (20:39)
[2017-06-11] MEDS ORDERED: POTASSI CL 20 MEQ/1/2NS 1L 20 MEQ/1,000 ML RTUINJ IV PRN (22:48)
[2017-06-11] MEDS ORDERED: PHOSPHORUS #1 250 MG TABLET PO ONE (23:15)
[2017-06-12] MEDS: DIAZEPAM INJ 10 MG/2 ML DISP.SYRIN IV SCH (01:55)
[2017-06-12 05:08] LABS: ALANINE AMINOTRANSFERASE 47 U/L (9-52); ALBUMIN 3.1 g/dL (3.5-5.0); ALKALINE PHOSPHATASE 73 U/L (38-126); ANION GAP 8 (5-19); ASPARTATE AMINO TRANSFERASE 91 U/L (14-36); BILIRUBIN,DIRECT 0.5 mg/dL (0.0-0.4); BILIRUBIN,TOTAL 0.5 mg/dL (0.2-1.3); BLOOD UREA NITROGEN 2 mg/dL (7-20); CALCIUM 9.7 mg/dL (8.4-10.2); CARBON DIOXIDE 25 mmol/L (22-30); CHLORIDE 104 mmol/L (98-107); GLUCOSE 101 mg/dL (75-110); SODIUM 136.7 mmol/L (137-145); TOTAL PROTEIN 5.6 g/dL (6.3-8.2)
[2017-06-12 06:39] LABS: LIPASE 4163.1 U/L (23-300); POTASSIUM 3.5 mmol/L (3.6-5.0)
[2017-06-12] MEDS ORDERED: PHOSPHORUS #1 250 MG TABLET PO SCH ×2 (08:00→16:00)
[2017-06-12] MEDS ORDERED: POTASSIUM CHLORIDE 10 MEQ TABLET.SA PO ONE (08:28)
[2017-06-12] MEDS ORDERED: DIAZEPAM 2 MG TABLET PO PRN (08:31)
[2017-06-12] MEDS: IPRATROPIUM/ALBUTEROL 0.5-2.5 MG/3 ML AMPUL NEB SCH ×2 (08:33→13:42)
[2017-06-12] MEDS: BUDESONIDE NEB 0.5 MG/2 ML AMPUL NEB SCH (08:33)
[2017-06-12] MEDS: GUAIFENESIN 600 MG TABLET.SA PO SCH (10:00)
[2017-06-12] MEDS: NICOTINE 14 MG/24 HR PATCH.TD24 TD SCH (10:00)
[2017-06-12] MEDS: LIPASE/PROTEASE/AMYLASE 1 CAP CAPSULE.DR PO SCH ×2 (10:01→13:20)
[2017-06-12] MEDS: MAGNESIUM OXIDE 400 MG TABLET PO SCH (10:01)
--- NOTE | 2017-06-12 10:30 | PDOC DISCHARGE SUMMARY ---
General - Admit/Disc Date/PCP Admission Date/Primary Care Provider: 06/08/17 20:36 Discharge Date: 06/12/17 - Discharge Diagnosis (1) Acute pancreatitis Is this a current diagnosis for this admission?: Yes (2) Hyponatremia Is this a current diagnosis for this admission?: Yes (3) Hypokalemia Is this a current diagnosis for this admission?: Yes (4) Hyperkalemia Is this a current diagnosis for this admission?: Yes (5) Tobacco dependence Is this a current diagnosis for this admission?: Yes (6) Schizoaffective disorder Is this a current diagnosis for this admission?: No Summary: Patient denies any psychiatric history - Additional Information Resuscitation Status: Full Code Discharge Diet: Other (Comments) - Low fat diet Prescriptions: Diazepam [Valium 2 mg Tablet] 2 mg PO Q4HP PRN 5 Days #30 tablet PRN Reason: Lipase/Protease/Amylase [Creon 10 EC Capsule] 1 cap PO TID 30 Days #90 capsule. Nicotine [Nicoderm 14 mg/24 Hr Transdermal Patch] 1 each TD DAILY 30 Days #30 patch.td24 Phosphorus #1 [K-Phos Neutral 250 mg Tablet] 500 mg PO BIDACBS 5 Days #10 tablet Potassium Chloride [Klor-Con 10 Meq Tablet.sa] 20 meq PO DAILY 5 Days #5 tablet.sa Thiamine HCl [Thiamine 100 mg Tablet] 100 mg PO DAILY 30 Days #30 tablet Home Medications: Albuterol Sulfate [Proair HFA Inhalation Aerosol 8.5 gm MDI] 2 puff IH Q4HP PRN 06/08/17 Diazepam [Valium 2 mg Tablet] 2 mg PO Q4HP PRN 5 Days #30 tablet 06/12/17 Lipase/Protease/Amylase [Creon 10 EC Capsule] 1 cap PO TID 30 Days #90 capsule. 06/12/17 Nicotine [Nicoderm 14 mg/24 Hr Transdermal Patch] 1 each TD DAILY 30 Days #30 patch.td24 06/12/17 Phosphorus #1 [K-Phos Neutral 250 mg Tablet] 500 mg PO BIDACBS 5 Days #10 tablet 06/12/17 Potassium Chloride [Klor-Con 10 Meq Tablet.sa] 20 meq PO DAILY 5 Days #5 tablet.sa 06/12/17 Thiamine HCl [Thiamine 100 mg Tablet] 100 mg PO DAILY 30 Days #30 tablet History of Present Illness History of Present Illness: TACHO SALINAS is a 36 year old female Hospital Course Hospital Course: 36 yr old female with h/o ETOH abuse and h/o pancreatitis and tobacco dependence who presented to the hospital on 06/09/17 with 3 days of abdominal pain worsened by oral intake associated with nausea and loose stools. Denied vomiting. She was diagnosed with acute pancreatitis and started on IV fluids symptom management with analgesics and n.p.o. Lipase levels have improved. Diet has been gradually upgraded and she has tolerated this well. Patient is ready for discharge. Abstinence from alcohol was advised, and she is willing. She is to follow up with her primary care provider in 1 week. Physical Exam Vital Signs: Temp Pulse Resp BP Pulse Ox 98.0 F 97 14 114/79 96 06/12/17 07:21 06/12/17 08:33 06/12/17 08:33 06/12/17 07:21 06/12/17 07:21 Intake & Output 06/11/17 06/12/17 06/13/17 06:59 06:59 06:59 Intake Total 3390 2250 Output Total 2800 3500 Balance 590 -1250 Weight 52.1 kg 51.2 kg General appearance: PRESENT: no acute distress Ear exam: PRESENT: normal external ear exam Respiratory exam: PRESENT: clear to auscultation gutierrez, symmetrical GI/Abdominal exam: PRESENT: soft. ABSENT: tenderness Results Laboratory Results: 06/11/17 05:43 06/12/17 04:30 06/12/17 04:30 Sodium 136.7 L Potassium 3.5 L D Chloride 104 Carbon Dioxide 25 Anion Gap 8 BUN 2 L Creatinine 0.50 L Est GFR ( Amer) > 60 Est GFR (Non-Af Amer) > 60 Glucose 101 Calcium 9.7 Total Bilirubin 0.5 AST 91 H ALT 47 Alkaline Phosphatase 73 Total Protein 5.6 L Albumin 3.1 L Lipase 4163.1 H Impressions: Abdomen Ultrasound 06/09/17 00:00 IMPRESSION: FATTY INFILTRATION OF THE LIVER. NO OTHER SIGNIFICANT FINDING IN THE VISUALIZED ABDOMEN. Qualifiers - * PATEINT BEING DISCHARGED WITH ANY OF THE FOLLOWING DIAGNOSIS?: No
[2017-06-12] MEDS ORDERED: THIAMINE HCL 100 MG TABLET PO ONE (11:30)
[2017-06-12 12:14] VITALS: BP 123/76
[2017-06-13] MEDS ORDERED: POTASSIUM CHLORIDE 10 MEQ TABLET.SA PO SCH (10:00)
[2017-06-13] MEDS ORDERED: THIAMINE HCL 100 MG TABLET PO SCH (10:00)
== END 2017-06-12 13:57 | disposition home or self-care (01) | DRG 439 ==
LOC: ER 16:39 → EH 20:36 → 4N 22:16
PROVIDERS: ADMIT Internal Medicine; ATTEND Internal Medicine
DX: K85.20 Alcohol induced acute pancreatitis without necrosis or infection (principal); J44.1 Chronic obstructive pulmonary disease with (acute) exacerbation; E87.1 Hypo-osmolality and hyponatremia; F25.9 Schizoaffective disorder, unspecified; F10.20 Alcohol dependence, uncomplicated; Y90.0 Blood alcohol level of less than 20 mg/100 ml; E87.6 Hypokalemia; E87.5 Hyperkalemia; F17.210 Nicotine dependence, cigarettes, uncomplicated; Z79.51 Long term (current) use of inhaled steroids
CPT/HCPCS: 36415; 76700; 80053; 80307; 81001; 83690; 83735; 84100; 84703; 85025; 85027; 96360; 99285; J1885; J3360; J3411; J3480; J3490; J7030; J7040; J7050; J7620; S0028; S0119

== ENCOUNTER 2017-07-25 15:55 | Inpatient (IN) | payer MEDICAID ==
--- NOTE | 2017-07-25 16:55 | ER Document Report ---
ED Medical Screen (RME) - General Chief Complaint: Abdominal Pain Stated Complaint: ABDOMINAL PAIN Time Seen by Provider: 07/25/17 16:45 Notes: 36 years old female with a history of alcohol use in the past diagnosed with pancreatitis recently, presents with mid abdominal pain with some swelling of the abdomen for the last few days. Associated with nausea did not eat anything for 3 days. Denies any fever chills diarrhea or constipation. Denies any dysuria frequency urgency. I have greeted and performed a rapid initial assessment of this patient. A comprehensive ED assessment and evaluation of the patient, analysis of test results and completion of the medical decision making process will be conducted by additional ED providers. PHYSICAL EXAMINATION: GENERAL: Well-appearing, well-nourished and in no acute distress. HEAD: Atraumatic, normocephalic. EYES: Pupils equal round extraocular movements intact, conjunctiva are normal. ENT: Nares patent NECK: Normal range of motion LUNGS: No respiratory distress Abdomen-tender diffusely Musculoskeletal: Normal range of motion NEUROLOGICAL: Normal speech, normal gait. PSYCH: Normal mood, normal affect. SKIN: Warm, Dry, normal turgor, no rashes or lesions noted. TRAVEL OUTSIDE OF THE [place] IN LAST 30 DAYS: No - Related Data Allergies/Adverse Reactions: lorazepam [From Ativan] Allergy (Mild, Verified 07/25/17 16:40) shakiness, paranoid Past Medical History - Social History Chew tobacco use (# tins/day): No Frequency of alcohol use: None Drug Abuse: None Pulmonary Medical History: Reports: Hx Asthma, Hx COPD Renal/ Medical History: Denies: Hx Peritoneal Dialysis Psychiatric Medical History: Reports: Hx Schizoaffective Disorder Denies: Hx Depression Past Surgical History: Reports: Hx Adenoidectomy, Hx Section, Hx Tonsillectomy, Hx Tubal Ligation - Immunizations Immunizations up to date: Yes Hx Diphtheria, Pertussis, Tetanus Vaccination: Yes - 2014 History of Influenza Vaccine for 11/2016 - 04/2017 Season: Refused Physical Exam - Vital signs Vitals: Temp Pulse Resp BP Pulse Ox 99.3 F 74 12 132/66 H 96 07/25/17 16:02 07/25/17 16:02 07/25/17 16:02 07/25/17 16:02 07/25/17 16:02 Course - Re-evaluation Re-evalutation: 07/25/17 18:08 pancreatic enzymes elevated therefore hospitalist Dr. Richardson was called and patient is admitted - Vital Signs Vital signs: Temp Pulse Resp BP Pulse Ox 98 F 74 18 124/69 96 07/25/17 17:13 07/25/17 17:13 07/25/17 17:13 07/25/17 17:13 07/25/17 17:13 - Laboratory Result Diagrams: 07/25/17 17:18 07/25/17 17:18 Laboratory results interpreted by me: 07/25/17 07/25/17 07/25/17 17:18 17:18 17:18 RDW 18.7 H Chloride 91 L Carbon Dioxide 31 H Total Bilirubin 2.7 H Direct Bilirubin 0.9 H AST 430 H ALT 80 H Alkaline Phosphatase 133 H Lipase 2510.5 H Urine Protein 100 H Urine Ketones 20 H Urine Bilirubin SMALL H Urine Urobilinogen 4.0 H Doctor's Discharge - Discharge Clinical Impression: Acute pancreatitis Qualifiers: Pancreatitis type: alcohol induced Acute pancreatitis complication: no infection or necrosis Qualified Code(s): K85.20 - Alcohol induced acute pancreatitis without necrosis or infection Disposition: ADMITTED INPATIENT
[2017-07-25 17:29] LABS: ABSOLUTE LYMPHOCYTES (AUTO) 1.6 10^3/uL (0.5-4.7); ABSOLUTE MONOCYTES (AUTO) 0.4 10^3/uL (0.1-1.4); ABSOLUTE NEUT (AUTO) 3.8 10^3/uL (1.7-8.2); BASOPHILS % (AUTO) 0.5 % (0-2); EOSINOPHILS % (AUTO) 0.1 % (0-6); HEMATOCRIT 42.7 % (36.0-47.0); HEMOGLOBIN 14.3 g/dL (12.0-15.5); LYMPHOCYTES % (AUTO) 26.8 % (13-45); MEAN CORPUSCULAR HEMOGLOBIN 30.4 pg (27.0-33.4); MEAN CORPUSCULAR HGB CONC 33.6 g/dL (32.0-36.0); MEAN CORPUSCULAR VOLUME 91 fl (80-97); MONOCYTES % (AUTO) 6.4 % (3-13); PLATELET COUNT 234 10^3/uL (150-450); RED BLOOD COUNT 4.71 10^6/uL (3.72-5.28); RED CELL DISTRIBUTION WIDTH 18.7 % (11.5-14.0); SEGMENTED NEUTROPHILS % (AUTO) 66.2 % (42-78); TOTAL CELLS COUNTED % (AUTO) 100 %; WHITE BLOOD COUNT 5.8 10^3/uL (4.0-10.5)
--- NOTE | 2017-07-25 17:35 | RADIOLOGY REPORT (SQ) ---
EXAM DESCRIPTION: ACUTE ABDOMEN SERIES COMPLETED DATE/TIME: 07/25/2017 5:25 pm REASON FOR STUDY: Abdominal pain COMPARISON: None. NUMBER OF VIEWS: Three views. TECHNIQUE: Frontal chest, supine abdomen and upright/decubitus abdomen radiographic images acquired. LIMITATIONS: None. FINDINGS: CHEST: Lungs clear of infiltrates. FREE AIR: None. No abnormal gas collections. BOWEL GAS PATTERN: Nonobstructive pattern. No dilated loops or air fluid levels. CALCIFICATIONS: No suspicious calcifications. HARDWARE: None in the abdomen. SOFT TISSUES: No gross mass or suggestion of organomegaly. BONES: No acute fracture. No worrisome bone lesions. OTHER: No other significant finding. IMPRESSION: NO RADIOGRAPHIC EVIDENCE FOR ACUTE ABDOMINAL DISEASE. TECHNICAL DOCUMENTATION: JOB ID: [id number] [employer]- All Rights Reserved Reading location - IP/workstation name: [email or web address]
[2017-07-25 17:40] LABS: APPEARANCE,URINE SLIGHTLY-CLOUDY; BILIRUBIN,URINE SMALL (NEGATIVE); GLUCOSE, URINE NEGATIVE (NEGATIVE); KETONES,URINE 20 mg/dL (NEGATIVE); LEUKOCYTE ESTERASE,URINE NEGATIVE (NEGATIVE); NITRITE,URINE NEGATIVE (NEGATIVE); PROTEIN,URINE 100 mg/dL (NEGATIVE); URINE SPECIFIC GRAVITY 1.034
[2017-07-25 17:41] LABS: COLOR,URINE ORANGE
[2017-07-25 17:54] LABS: ALANINE AMINOTRANSFERASE 80 U/L (9-52); ALBUMIN 4.6 g/dL (3.5-5.0); ALKALINE PHOSPHATASE 133 U/L (38-126); ANION GAP 17 (5-19); ASPARTATE AMINO TRANSFERASE 430 U/L (14-36); BILIRUBIN,DIRECT 0.9 mg/dL (0.0-0.4); BILIRUBIN,TOTAL 2.7 mg/dL (0.2-1.3); BLOOD UREA NITROGEN 10 mg/dL (7-20); CALCIUM 10.1 mg/dL (8.4-10.2); CARBON DIOXIDE 31 mmol/L (22-30); CHLORIDE 91 mmol/L (98-107); GLUCOSE 100 mg/dL (75-110); POTASSIUM 3.9 mmol/L (3.6-5.0); SODIUM 139.3 mmol/L (137-145)
[2017-07-25 18:01] LABS: LIPASE 2510.5 U/L (23-300)
[2017-07-25] MEDS ORDERED: NORMAL SALINE 1000 ML 1,000 ML IV ONE (18:05)
[2017-07-25] MEDS ORDERED: NORMAL SALINE 1000 ML 1,000 ML IV PRN (18:05)
[2017-07-25] MEDS ORDERED: ONDANSETRON HCL INJ/PF 4 MG/2 ML SDV IV ONE (18:08)
[2017-07-25] MEDS ORDERED: MORPHINE SULFATE 10 MG/ML INJ IV ONE (18:08)
[2017-07-25] MEDS ORDERED: ONDANSETRON 4 MG TAB.RAPDIS PO PRN (18:39)
[2017-07-25] MEDS ORDERED: MORPHINE SULFATE 10 MG/ML INJ IV PRN (18:43)
--- NOTE | 2017-07-25 18:52 | PDOC H&P ---
History of Present Illness Admission Date/PCP: 07/25/2017 Patient complains of: Abdominal pain History of Present Illness: TACHO SALINAS is a 36 year old female with a known history of chronic alcoholism and recurrent pancreatitis Presents to the ED with severe abdominal pain and distention Patient states she has been sober now since June 15; there is no new consumption of alcohol For the past 3 days she has had increasing severe abdominal pain radiating to the back It is associated with vomiting and constant nausea Her last bowel movement was about 3 days ago Upon evaluation in the ED patient had elevated lipase consistent with acute pancreatitis She was subsequently admitted on the hospitalist service to medical unit CT abdomen and pelvis is pending at time of this dictation Past Medical History Pulmonary Medical History: Reports: Asthma, Chronic Obstructive Pulmonary Disease (COPD) GI Medical History: Reports: Other - Chronic alcoholism Chronic pancreatitis Psychiatric Medical History: Reports: Schizoaffective Disorder Denies: Depression Past Surgical History Past Surgical History: Reports: Adenoidectomy, Section, Tonsillectomy, Tubal Ligation Social History Smoking Status: Current Every Day Smoker Frequency of Alcohol Use: None - Since June 15, 2018 Hx Recreational Drug Use: No Drugs: None Hx Prescription Drug Abuse: No - Advance Directive Resuscitation Status: Full Code Surrogate healthcare decision maker:: Her daughter Nenita Dominguez Family History Family History: Malignancy - family hx of throat cancer. denies: CAD, CVA, DM, Hyperlipidemia, Hypertension, Thyroid Disfunction Parental Family History Reviewed: Yes - Mother and father had throat cancer Children Family History Reviewed: Yes Sibling(s) Family History Reviewed.: Yes Medication/Allergy Home Medications: Lipase/Protease/Amylase [Elmo Blandon 12,000 Units Capsule] 1 each PO TID 07/25/17 Allergies/Adverse Reactions: lorazepam [From Ativan] Allergy (Mild, Verified 07/25/17 16:40) shakiness, paranoid Physical Exam Vital Signs: Temp Pulse Resp BP Pulse Ox 98 F 74 18 124/69 96 07/25/17 17:13 07/25/17 17:13 07/25/17 17:13 07/25/17 17:13 07/25/17 17:13 Intake & Output 07/24/17 07/25/17 07/26/17 00:59 00:59 00:59 Weight 55.9 kg General appearance: PRESENT: mild distress, thin Head exam: PRESENT: atraumatic, normocephalic Eye exam: PRESENT: conjunctiva pink, EOMI, PERRLA. ABSENT: scleral icterus Neck exam: PRESENT: carotid bruit Respiratory exam: PRESENT: clear to auscultation gutierrez. ABSENT: rales, rhonchi, wheezes Cardiovascular exam: PRESENT: RRR. ABSENT: diastolic murmur, rubs, systolic murmur Pulses: PRESENT: normal dorsalis pedis pul GI/Abdominal exam: PRESENT: distended, tenderness - Diffuse in all quadrants Extremities exam: PRESENT: full ROM. ABSENT: calf tenderness, clubbing, pedal edema Neurological exam: PRESENT: alert, awake, oriented to person, oriented to place , oriented to time, oriented to situation, CN II-XII grossly intact. ABSENT: motor sensory deficit Psychiatric exam: PRESENT: appropriate affect, normal mood. ABSENT: homicidal ideation, suicidal ideation Skin exam: PRESENT: dry, intact, warm. ABSENT: cyanosis, rash Results Laboratory Results: 07/25/17 17:18 07/25/17 17:18 07/25/17 07/25/17 07/25/17 17:18 17:18 17:18 WBC 5.8 RBC 4.71 Hgb 14.3 Hct 42.7 MCV 91 MCH 30.4 MCHC 33.6 RDW 18.7 H Plt Count 234 Seg Neutrophils % 66.2 Lymphocytes % 26.8 Monocytes % 6.4 Eosinophils % 0.1 Basophils % 0.5 Absolute Neutrophils 3.8 Absolute Lymphocytes 1.6 Absolute Monocytes 0.4 Absolute Eosinophils 0.0 Absolute Basophils 0.0 Sodium 139.3 Potassium 3.9 Chloride 91 L Carbon Dioxide 31 H Anion Gap 17 BUN 10 Creatinine 0.79 Est GFR ( Amer) > 60 Est GFR (Non-Af Amer) > 60 Glucose 100 Calcium 10.1 Total Bilirubin 2.7 H AST 430 H ALT 80 H Alkaline Phosphatase 133 H Total Protein 8.0 Albumin 4.6 Lipase 2510.5 H Urine Color ORANGE Urine Appearance SLIGHTLY-CLOUDY Urine pH 5.0 Ur Specific [place] 1.034 Urine Protein 100 H Urine Glucose (UA) NEGATIVE Urine Ketones 20 H Urine Blood NEGATIVE Urine Nitrite NEGATIVE Ur Leukocyte Esterase NEGATIVE Urine WBC (Auto) 2 Urine RBC (Auto) 2 07/25/17 17:18 Troponin I < 0.012 Impressions: Acute Abdomen Series 05/29/18 16:50 IMPRESSION: NO RADIOGRAPHIC EVIDENCE FOR ACUTE ABDOMINAL DISEASE. Assessment & Plan - Diagnosis (1) Acute pancreatitis Qualifiers: Pancreatitis type: alcohol induced Acute pancreatitis complication: no infection or necrosis Qualified Code(s): K85.20 - Alcohol induced acute pancreatitis without necrosis or infection Is this a current diagnosis for this admission?: Yes (2) Tobacco dependence Is this a current diagnosis for this admission?: Yes (3) Chronic pancreatitis Is this a current diagnosis for this admission?: Yes - Time Time Spent with patient: Perform CT abdomen and pelvis with contrast if possible Treat with IV fluids N.p.o. Ice chips as tolerated Protonix DVT prophylaxis We will continue pancreatic enzymes previously prescribed Time Spent: 50 to 70 Minutes - Inpatient Certification Based on my medical assessment, after consideration of the patient's comorbidities, presenting symptoms, or acuity I expect that the services needed warrant INPATIENT care.: Yes I certify that my determination is in accordance with my understanding of Medicare's requirements for reasonable and necessary INPATIENT services [42 CFR 412.3e].: Yes Medical Necessity: Need For IV Fluids, Need for Pain Control, Risk of Complication if Not Cared For in Hospital
[2017-07-25] MEDS ORDERED: ENOXAPARIN SODIUM INJ 40 MG/0.4 ML DISP.SYRIN SUBCUT ONE (20:30)
[2017-07-25] MEDS ORDERED: FENTANYL CITRATE INJ/PF 100 MCG/2 ML AMPUL IV ONE (20:59)
--- NOTE | 2017-07-25 22:08 | RADIOLOGY REPORT (SQ) ---
EXAM DESCRIPTION: CT ABD/PELVIS WITH IV ORAL COMPLETED DATE/TIME: 07/25/2017 9:26 pm REASON FOR STUDY: Pancreatitis COMPARISON: None. TECHNIQUE: CT scan of the abdomen and pelvis performed using helical scanning technique with dynamic intravenous contrast injection. Oral contrast. Images reviewed with lung, soft tissue, and bone win dows. Reconstructed coronal and sagittal MPR images reviewed. Delayed images for evaluation of the ur inary system also acquired. All images stored on PACS. All CT scanners at this facility use dose modulation, iterative reconstruction, and/or weight based d osing when appropriate to reduce radiation dose to as low as reasonably achievable (ALARA). [facility]: Dose Right [facility]: CareDose [facility]: Dose Right [facility]: Teradose 4D [facility]: [employer] CONTRAST TYPE AND DOSE: contrast/concentration: Isovue 370.00 mg/ml; Total Contrast Delivered: 61.0 ml; Total Saline Delivered: 30.0 ml RENAL FUNCTION: BUN 10 creatinine 0.8 RADIATION DOSE: CT Rad equipment meets quality standard of care and radiation dose reduction techniq ues were employed. CTDIvol: 4.9 mGy. DLP: 514 mGy-cm.. LIMITATIONS: None. FINDINGS: LOWER CHEST: No significant findings. No nodules or infiltrates. LIVER: The liver is of uniformly low attenuation. Hepatomegaly. SPLEEN: Normal size. No focal lesions. PANCREAS: There is mild pancreatic and peripancreatic edema. No abnormal fluid collections are prese nt. GALLBLADDER: No identified stones by CT criteria. No inflammatory changes to suggest cholecystitis. ADRENAL GLANDS: No significant masses or asymmetry. RIGHT KIDNEY AND URETER: No solid masses. No significant calcifications. No hydronephrosis or hyd roureter. LEFT KIDNEY AND URETER: No solid masses. No significant calcifications. No hydronephrosis or hydr oureter. AORTA AND VESSELS: No aneurysm. No dissection. Renal arteries, SMA, celiac without stenosis. RETROPERITONEUM: No retroperitoneal adenopathy, hemorrhage or masses. BOWEL AND PERITONEAL CAVITY: A small amount of contrast is present in the distal small bowel in the r ight colon. No obvious bowel mass is seen. No inflammatory changes are appreciated. APPENDIX: Normal. PELVIS: 3 cm right adnexal cyst. No free fluid. Urinary bladder is normal. ABDOMINAL WALL: No masses. No hernias. BONES: No significant or acute findings. OTHER: No other significant finding. IMPRESSION: 1. Hepatomegaly with fatty infiltration of the liver. 2. Pancreatitis with no evidence of pancreatic pseudocyst. 3. 3 cm right adnexal cyst. TECHNICAL DOCUMENTATION: JOB ID: [id number] Quality ID # [id number]: Final reports with documentation of one or more dose reduction techniques (e.g., Au tomated exposure control, adjustment of the mA and/or kV according to patient size, use of iterative reconstruction technique) 2010 [employer]- All Rights Reserved Reading location - IP/workstation name: [email or web address]
[2017-07-25] MEDS: NORMAL SALINE 1000 ML 1,000 ML IV PRN (22:54)
[2017-07-25] MEDS: PANTOPRAZOLE SODIUM 40 MG VIAL IV SCH (23:00)
[2017-07-25] MEDS ORDERED: THIAMINE HCL INJ 200 MG/2 ML VIAL IV PRN (23:25)
[2017-07-25] MEDS ORDERED: FOLIC ACID INJ 5 MG/1 ML 10 ML VIAL IV PRN (23:25)
[2017-07-25] MEDS ORDERED: THIAMINE HCL 100 MG, FOLIC ACID 1 MG in NORMAL SALINE 250 ML IV ONE (23:30)
[2017-07-25] MEDS ORDERED: NICOTINE 7 MG/24 HR PATCH.TD24 TD ONE (23:30)
[2017-07-25] MEDS ORDERED: THIAMINE HCL INJ 200 MG/2 ML VIAL ONE (23:35)
[2017-07-25] MEDS ORDERED: FOLIC ACID INJ 5 MG/1 ML 10 ML VIAL ONE (23:37)
[2017-07-25 23:41] LABS: APPEARANCE,URINE CLEAR; BILIRUBIN,URINE NEGATIVE (NEGATIVE); COLOR,URINE AMBER; GLUCOSE, URINE NEGATIVE (NEGATIVE); KETONES,URINE 20 mg/dL (NEGATIVE); LEUKOCYTE ESTERASE,URINE NEGATIVE (NEGATIVE); NITRITE,URINE NEGATIVE (NEGATIVE); PROTEIN,URINE NEGATIVE (NEGATIVE)
[2017-07-25 23:42] LABS: URINE SPECIFIC GRAVITY > 1.060
[2017-07-25] MEDS: KETOROLAC TROMETHAMINE INJ/PF 30 MG/1 ML SDV IV PRN (23:54)
[2017-07-26] MEDS: NORMAL SALINE 1000 ML 1,000 ML IV PRN (02:47)
[2017-07-26 05:54] LABS: ABSOLUTE EOSINOPHILS # (AUTO) 0.1 10^3/uL (0.0-0.6); ABSOLUTE LYMPHOCYTES (AUTO) 2.1 10^3/uL (0.5-4.7); ABSOLUTE MONOCYTES (AUTO) 0.3 10^3/uL (0.1-1.4); ABSOLUTE NEUT (AUTO) 1.8 10^3/uL (1.7-8.2); BASOPHILS % (AUTO) 0.5 % (0-2); EOSINOPHILS % (AUTO) 1.3 % (0-6); HEMATOCRIT 33.1 % (36.0-47.0); LYMPHOCYTES % (AUTO) 48.9 % (13-45); MEAN CORPUSCULAR HEMOGLOBIN 30.8 pg (27.0-33.4); MEAN CORPUSCULAR HGB CONC 33.2 g/dL (32.0-36.0); MEAN CORPUSCULAR VOLUME 93 fl (80-97); MONOCYTES % (AUTO) 7.9 % (3-13); PLATELET COUNT 124 10^3/uL (150-450); RED BLOOD COUNT 3.57 10^6/uL (3.72-5.28); RED CELL DISTRIBUTION WIDTH 18.2 % (11.5-14.0); SEGMENTED NEUTROPHILS % (AUTO) 41.4 % (42-78); TOTAL CELLS COUNTED % (AUTO) 100 %; WHITE BLOOD COUNT 4.3 10^3/uL (4.0-10.5)
[2017-07-26 06:06] LABS: ALANINE AMINOTRANSFERASE 52 U/L (9-52); ALBUMIN 2.8 g/dL (3.5-5.0); ALKALINE PHOSPHATASE 84 U/L (38-126); ANION GAP 8 (5-19); ASPARTATE AMINO TRANSFERASE 214 U/L (14-36); BILIRUBIN,DIRECT 0.7 mg/dL (0.0-0.4); BILIRUBIN,TOTAL 2.1 mg/dL (0.2-1.3); BLOOD UREA NITROGEN 9 mg/dL (7-20); CALCIUM 8.2 mg/dL (8.4-10.2); CARBON DIOXIDE 25 mmol/L (22-30); CHLORIDE 104 mmol/L (98-107); CHOLESTEROL 128.22 mg/dL (0-200); GLUCOSE 70 mg/dL (75-110); LIPASE 1428.2 U/L (23-300); POTASSIUM 3.6 mmol/L (3.6-5.0); SODIUM 137.4 mmol/L (137-145); TOTAL PROTEIN 5.3 g/dL (6.3-8.2); TRIGLYCERIDES 70 mg/dL (<150)
[2017-07-26 06:17] LABS: DIRECT LDL 65 mg/dL (<100)
[2017-07-26] MEDS: NICOTINE 7 MG/24 HR PATCH.TD24 TD SCH (09:59)
[2017-07-26] MEDS ORDERED: THIAMINE HCL 100 MG, FOLIC ACID 1 MG in NORMAL SALINE 250 ML IV SCH ×2 (10:00→22:00)
[2017-07-26] MEDS ORDERED: (PENDING PHARMACY ID) (Lipase/Protease/Amylase [Creon Dr 12,000 Units Capsule] 1 EACH) PO SCH (10:00)
[2017-07-26] MEDS: LIPASE/PROTEASE/AMYLASE 1 CAP CAPSULE.DR PO SCH ×3 (10:00→16:40)
[2017-07-26] MEDS: PANTOPRAZOLE SODIUM 40 MG VIAL IV SCH ×2 (10:00→22:04)
[2017-07-26] MEDS: KETOROLAC TROMETHAMINE INJ/PF 30 MG/1 ML SDV IV PRN ×3 (10:01→23:02)
[2017-07-26] MEDS: ENOXAPARIN SODIUM INJ 40 MG/0.4 ML DISP.SYRIN SUBCUT SCH (10:47)
--- NOTE | 2017-07-26 11:21 | PDOC PROGRESS REPORT ---
Subjective Progress Note for:: 07/26/17 Subjective:: Patient states she is feeling better No fever no chills Improved abdominal pain CT abdomen and pelvis performed yesterday was suggestive of pancreatitis ; no fluid collection Reason For Visit: ACUTE PANCREATITIS Physical Exam Vital Signs: Temp Pulse Resp BP Pulse Ox 98.5 F 61 17 125/82 99 07/25/17 23:27 07/25/17 23:27 07/25/17 23:27 07/25/17 23:27 07/25/17 23:27 Intake & Output 07/25/17 07/26/17 07/27/17 00:59 00:59 00:59 Weight 56.1 kg General appearance: PRESENT: no acute distress Head exam: PRESENT: atraumatic, normocephalic Eye exam: PRESENT: conjunctiva pink, EOMI, PERRLA. ABSENT: scleral icterus Neck exam: ABSENT: carotid bruit, JVD, lymphadenopathy, thyromegaly Respiratory exam: PRESENT: clear to auscultation gutierrez. ABSENT: rales, rhonchi, wheezes Cardiovascular exam: PRESENT: RRR. ABSENT: diastolic murmur, rubs, systolic murmur Pulses: PRESENT: normal dorsalis pedis pul GI/Abdominal exam: PRESENT: normal bowel sounds, tenderness - Epigastric and persistent. ABSENT: rebound, rigid Extremities exam: PRESENT: full ROM. ABSENT: calf tenderness, clubbing, pedal edema Neurological exam: PRESENT: alert, awake, oriented to person, oriented to place , oriented to time, oriented to situation, CN II-XII grossly intact. ABSENT: motor sensory deficit Results Laboratory Results: 07/26/17 05:24 07/26/17 05:24 07/25/17 07/26/17 07/26/17 23:15 05:24 05:24 WBC 4.3 RBC 3.57 L Hgb 11.0 L D Hct 33.1 L MCV 93 MCH 30.8 MCHC 33.2 RDW 18.2 H Plt Count 124 L Seg Neutrophils % 41.4 L Lymphocytes % 48.9 H Monocytes % 7.9 Eosinophils % 1.3 Basophils % 0.5 Absolute Neutrophils 1.8 Absolute Lymphocytes 2.1 Absolute Monocytes 0.3 Absolute Eosinophils 0.1 Absolute Basophils 0.0 Sodium 137.4 Potassium 3.6 Chloride 104 Carbon Dioxide 25 Anion Gap 8 BUN 9 Creatinine 0.67 Est GFR ( Amer) > 60 Est GFR (Non-Af Amer) > 60 Glucose 70 L Calcium 8.2 L Magnesium 1.7 Total Bilirubin 2.1 H AST 214 H ALT 52 Alkaline Phosphatase 84 Total Protein 5.3 L Albumin 2.8 L Triglycerides 70 Cholesterol 128.22 LDL Cholesterol Direct 65 VLDL Cholesterol 14.0 HDL Cholesterol 50 Lipase 1428.2 H Urine Color [place] Urine Appearance CLEAR Urine pH 7.0 Ur Specific [place] > 1.060 Urine Protein NEGATIVE Urine Glucose (UA) NEGATIVE Urine Ketones 20 H Urine Blood NEGATIVE Urine Nitrite NEGATIVE Ur Leukocyte Esterase NEGATIVE Urine WBC (Auto) 1 Urine RBC (Auto) 2 Impressions: Acute Abdomen Series 07/25/17 16:50 IMPRESSION: NO RADIOGRAPHIC EVIDENCE FOR ACUTE ABDOMINAL DISEASE. Abdomen/Pelvis CT 07/25/17 18:04 IMPRESSION: 1. Hepatomegaly with fatty infiltration of the liver. 2. Pancreatitis with no evidence of pancreatic pseudocyst. 3. 3 cm right adnexal cyst. Assessment & Plan - Diagnosis (1) Acute pancreatitis Qualifiers: Pancreatitis type: alcohol induced Acute pancreatitis complication: no infection or necrosis Qualified Code(s): K85.20 - Alcohol induced acute pancreatitis without necrosis or infection Is this a current diagnosis for this admission?: Yes Plan: Slight improvement Lipase is coming down We will let patient have clear liquids Continue IV hydration (2) Tobacco dependence Is this a current diagnosis for this admission?: Yes (3) Chronic pancreatitis Is this a current diagnosis for this admission?: Yes Plan: Continue pancreatic enzymes
[2017-07-26] MEDS ORDERED: ONDANSETRON 4 MG TAB.RAPDIS PO PRN (15:00)
[2017-07-26] MEDS: SUCRALFATE SUSP 1 GM/10 ML UDCUP PO SCH (22:04)
[2017-07-27] MEDS: NORMAL SALINE 1000 ML 1,000 ML IV PRN ×2 (00:20→07:04)
[2017-07-27 01:05] VITALS: BP 113/68
[2017-07-27] MEDS: KETOROLAC TROMETHAMINE INJ/PF 30 MG/1 ML SDV IV PRN (05:42)
[2017-07-27] MEDS: LIPASE/PROTEASE/AMYLASE 1 CAP CAPSULE.DR PO SCH (07:04)
[2017-07-27] MEDS ORDERED: MAG HYDROX/AL HYDROX/SIMETH SUSP 30 ML UDCUP PO ONE (09:00)
[2017-07-27] MEDS ORDERED: METOCLOPRAMIDE HCL ORAL SOLN 10 MG/10 ML UDCUP PO ONE (09:00)
[2017-07-27] MEDS ORDERED: LIDOCAINE 2% VISCOUS SOLN 20 ML UDCUP PO ONE (09:00)
[2017-07-27] MEDS ORDERED: FOLIC ACID 1 MG TABLET PO SCH (10:00)
[2017-07-27] MEDS ORDERED: CETIRIZINE 10 MG TABLET PO SCH (10:00)
[2017-07-27] MEDS ORDERED: THIAMINE HCL 100 MG TABLET PO SCH (10:00)
[2017-07-27] MEDS: NICOTINE 7 MG/24 HR PATCH.TD24 TD SCH (10:09)
[2017-07-27] MEDS: SUCRALFATE SUSP 1 GM/10 ML UDCUP PO SCH (10:10)
[2017-07-27] MEDS: PANTOPRAZOLE SODIUM 40 MG VIAL IV SCH (10:10)
[2017-07-27] MEDS: ENOXAPARIN SODIUM INJ 40 MG/0.4 ML DISP.SYRIN SUBCUT SCH (10:11)
--- NOTE | 2017-07-27 10:45 | DISCHARGE SUMMARY E ---
Discharge Summary NAME: TACHO SALINAS : 1980 AGE: 36Y ADMITTED: 07/25/2017 DISCHARGED: 07/27/2017 CODE STATUS: FULL CODE. PRIMARY CARE PROVIDER: The patient will be referred to the primary care provider who was manager of operations the day the patient was admitted. DISCHARGE DIAGNOSES INCLUDE: 1. Acute alcoholic pancreatitis. 2. Tobacco dependency, continuous. 3. Allergic rhinitis. DISCHARGE MEDICATIONS: Include ProAir HFA 2 puffs inhalation every 4 hours p.r.n. DIET: As tolerated, low fat. ACTIVITY: As tolerated. CONDITION: Good. DIAGNOSTICS: Lab values are as follows. Hematology obtained on 07/26/2017: WBCs are 4.3, hemoglobin is 9.0, hematocrit is 33.1, platelet count is 124,000. Chemistry obtained on 07/26/2017: Sodium is 137, potassium 3.6, chloride is 104, carbon dioxide 25, BUN 9, creatinine is 0.67, glucose 70, calcium is 8.2, magnesium is 1.7. Bilirubin is 2.1, AST is 214, ALT is 62, alk phos 84, total protein 5.3, albumin 2.8. Triglycerides are 70, cholesterol is 128, LDL 65, VLDL 14, HDL 50, lipase is 1428. Urinalysis obtained on 07/25/2017: Color syeda, appearance clear, pH 7.0, specific gravity 1.067, protein negative, glucose negative, ketones 20, occult blood negative, nitrite negative, bilirubin negative, urobilinogen is 4.0, leukocyte esterase is negative, WBCs 1, RBCs 2. Microbiology: Urine culture obtained on 07/25/2017 was negative. Acute abdominal series obtained on 07/25/2017 reveals no radiographic evidence of acute abdominal disease. CT of the abdomen and pelvis obtained on 07/25/2017 reveals hepatomegaly with fatty infiltration of the liver, pancreatitis with no evidence of pancreatic pseudocyst. PHYSICAL EXAMINATION: GENERAL: On examination, the patient is a well-developed, well-nourished 36-year-old female who is awake, alert, and oriented to person, place, time, and situation. She is verbal, conversational, does not appear to be distressed. VITAL SIGNS: As follows: Temperature is 98.6, pulse 69, respirations 16, blood pressure 113/68, oxygen saturation 100% on room air. SKIN: Warm and dry. No rash. She is not diaphoretic. HEENT: Pupils equal, round, reactive to light and accommodation. Conjunctivae pink. There is no evidence of JVP. CARDIOVASCULAR: Heart is regular. There is no murmur or rub. CHEST: Clear, symmetrical, unlabored. ABDOMEN: Soft, nontender, nondistended. BACK: No CVA tenderness or sacral edema. EXTREMITIES: No clubbing, cyanosis, edema. PSYCHIATRIC: Appropriate affect. Pleasant mood. HISTORY OF PRESENT ILLNESS: The patient is a 36-year-old female with a past medical history of recurrent alcoholic pancreatitis. The patient presented to the Emergency Department with a chief complaint of abdominal pain and distention. The patient stated that she had been sober since June 15 and had had no new alcohol consumption, but for 3 days prior to presentation she was noted to have abdominal pain which radiated to her back and was associated with nausea and constant vomiting. The patient had a bowel movement about 3 days prior. Upon presentation to the Emergency Department the patient was found to have an elevated lipase. CT was more consistent with pancreatic inflammation without pseudocyst, and the patient was referred to the hospitalist for admission and management. HOSPITAL COURSE: The patient was admitted to continuous telemetry unit. The patient was aggressively hydrated and was kept n.p.o. for 24 hours. The patient's diet was advanced and the patient tolerated it with no issue. The patient's AST and ALT trended down nicely, and the patient's lipase trended down to 1428. The patient was able to tolerate clear liquids without any issue and abdominal pain is significantly improved. The patient has had no further episodes of nausea and vomiting. In spite of the patient's continued elevation in lipase, her symptoms have completely resolved and the patient is eager for discharge. The patient was instructed to come to the Emergency Department should her symptoms worsen or change. Time spent on this discharge, including assessment/plan, physical examination, patient education, review of records, is 25 minutes. DICTATING PHYSICIAN: CAROLINA MONTERO NP [id number] PHY#: [id number] ID: [id number] JOB#: [id number] ACCT: [id number] cc:CAROLINA MONTERO NP >
== END 2017-07-27 12:10 | disposition home or self-care (01) | DRG 440 ==
LOC: ER 15:55 → EH 19:36 → 5 22:14
PROVIDERS: ADMIT Emergency Medicine; ATTEND Emergency Medicine
DX: K85.20 Alcohol induced acute pancreatitis without necrosis or infection (principal); K86.0 Alcohol-induced chronic pancreatitis; J44.9 Chronic obstructive pulmonary disease, unspecified; J00 Acute nasopharyngitis [common cold]; F25.9 Schizoaffective disorder, unspecified; F10.20 Alcohol dependence, uncomplicated; F17.210 Nicotine dependence, cigarettes, uncomplicated; Y90.9 Presence of alcohol in blood, level not specified
CPT/HCPCS: 36415; 74022; 74177; 80048; 80053; 80061; 80076; 81001; 83690; 83735; 84484; 85025; 87086; 87088; 96361; 96374; 99285; J1885; J2405; J3010; J3411; J3490; J7030; J7050; S0164

== ENCOUNTER 2018-01-30 06:32 | Emergency (ER) | payer SELFPAY ==
[2018-01-30 06:38] VITALS: BP 122/79
--- NOTE | 2018-01-30 07:13 | ER Document Report ---
ED General - General Stated Complaint: ETOH Time Seen by Provider: 01/30/18 06:41 Mode of Arrival: Medic Information source: Patient, Emergency Med Personnel TRAVEL OUTSIDE OF THE [place] IN LAST 30 DAYS: No - HPI Patient complains to provider of: Alcohol abuse Onset: Other - 37-year-old female presents for evaluation of desire for alcohol detox. She notes that she has been drinking for a long period of time and is decided that she wants to stop drinking is looking for help she did drink as recently as this morning however. He has had some withdrawal symptoms in the past. Is not tremulous at this time has no other health problems takes no medications. - Related Data Allergies/Adverse Reactions: lorazepam [From Ativan] Allergy (Mild, Verified 07/25/17 16:40) shakiness, paranoid Past Medical History - General Information source: Patient - Social History Smoking Status: Current Every Day Smoker Smoking Education Provided: Yes Frequency of alcohol use: Heavy Family History: Malignancy - family hx of throat cancer. denies: CAD, CVA, DM, Hyperlipidemia, Hypertension, Thyroid Disfunction Pulmonary Medical History: Reports: Hx Asthma, Hx COPD Renal/ Medical History: Denies: Hx Peritoneal Dialysis Psychiatric Medical History: Reports: Hx Schizoaffective Disorder Denies: Hx Depression Past Surgical History: Reports: Hx Adenoidectomy, Hx Section, Hx Tonsillectomy, Hx Tubal Ligation - Immunizations Immunizations up to date: Yes Hx Diphtheria, Pertussis, Tetanus Vaccination: Yes - 2014 Review of Systems - Review of Systems -: Yes All other systems reviewed and negative Physical Exam - Vital signs Vitals: Temp Pulse Resp BP Pulse Ox 97.3 F 99 20 122/79 98 01/30/18 06:34 01/30/18 06:34 01/30/18 06:34 01/30/18 06:34 01/30/18 06:34 - General General appearance: Appears well In distress: None - HEENT Head: Normocephalic, Atraumatic Eyes: Normal Pupils: PERRL - Respiratory Respiratory status: No respiratory distress Chest status: Nontender Breath sounds: Normal Chest palpation: Normal - Cardiovascular Rhythm: Regular Heart sounds: Normal auscultation Murmur: No - Abdominal Inspection: Normal Distension: No distension Bowel sounds: Normal Tenderness: Nontender Organomegaly: No organomegaly - Back Back: Normal, Nontender - Extremities General upper extremity: Normal inspection, Nontender, Normal color, Normal ROM , Normal temperature General lower extremity: Normal inspection, Nontender, Normal color, Normal ROM , Normal temperature, Normal weight bearing. No: Warren's sign - Neurological Neuro grossly intact: Yes Cognition: Normal Orientation: AAOx4 Jessica Coma Scale Eye Opening: Spontaneous Jessica Coma Scale Verbal: Oriented Jessica Coma Scale Motor: Obeys Commands [place] Coma Scale Total: 15 Speech: Normal Motor strength normal: LUE, RUE, LLE, RLE Sensory: Normal - Psychological Associated symptoms: Normal affect, Normal mood Course - Re-evaluation Re-evalutation: 01/30/18 08:03 Is a 37-year-old female who is seeking detox. On examination it is noteworthy that the patient is obviously recently had alcohol, she did note that she had drank earlier this evening. She is a long-standing history of alcoholism and drinks as many as 20 beers per day. She did discuss a desire to pursue detox. While the patient has consumed alcohol she does walk without assistance in the emergency department to the bathroom and back, does have a long-standing history of alcohol abuse and is thus likely able to handle an elevated level better than most. After 2 hours in the emergency department awaiting evaluation by our social work team for possible outpatient detox the patient decided that she wanted to smoke a cigarette or something else and subsequently walked out of the emergency department, initially there was concern that she may have an IV in place. She was however not given an IV prior to discharge. - Vital Signs Vital signs: Temp Pulse Resp BP Pulse Ox 97.3 F 99 20 122/79 98 01/30/18 06:34 01/30/18 06:34 01/30/18 06:34 01/30/18 06:34 01/30/18 06:34 - Laboratory Result Diagrams: 01/30/18 07:03 01/30/18 07:03 Laboratory results interpreted by me: 01/30/18 07:03 Sodium 146.5 H AST 91 H Total Protein 8.8 H Salicylates < 1.0 L Acetaminophen < 10 L Serum Alcohol 349 H* Discharge - Discharge Clinical Impression: Tobacco dependency Alcohol dependence Qualifiers: Substance use status: uncomplicated Qualified Code(s): F10.20 - Alcohol dependence, uncomplicated Condition: Stable Disposition: ELOPED
[2018-01-30 07:32] LABS: ALANINE AMINOTRANSFERASE 49 U/L (9-52); ALBUMIN 4.9 g/dL (3.5-5.0); ALKALINE PHOSPHATASE 99 U/L (38-126); ANION GAP 17 (5-19); ASPARTATE AMINO TRANSFERASE 91 U/L (14-36); BILIRUBIN,DIRECT 0.3 mg/dL (0.0-0.4); BILIRUBIN,TOTAL 0.3 mg/dL (0.2-1.3); BLOOD UREA NITROGEN 7 mg/dL (7-20); CALCIUM 9.9 mg/dL (8.4-10.2); CARBON DIOXIDE 25 mmol/L (22-30); CHLORIDE 105 mmol/L (98-107); GLUCOSE 103 mg/dL (75-110); POTASSIUM 4.9 mmol/L (3.6-5.0); SODIUM 146.5 mmol/L (137-145); TOTAL PROTEIN 8.8 g/dL (6.3-8.2)
[2018-01-30 07:43] LABS: ACETAMINOPHEN < 10 ug/mL (10-30); SALICYLATE < 1.0 mg/dL (2.0-20.0)
[2018-01-30 07:45] LABS: ALCOHOL 349 mg/dL (NONE DETECTED)
== END 2018-01-30 07:33 | disposition left against medical advice (07) ==
LOC: ER 06:32
DX: F10.20 Alcohol dependence, uncomplicated (principal); F17.200 Nicotine dependence, unspecified, uncomplicated; J44.9 Chronic obstructive pulmonary disease, unspecified; Z88.8 Allergy status to other drugs, medicaments and biological substances; Z53.29 Procedure and treatment not carried out because of patient's decision for other reasons
CPT/HCPCS: 36415; 80053; 80307; 84702; 99281

== ENCOUNTER 2018-04-12 20:51 | Emergency (ER) | payer SELFPAY ==
[2018-04-12 22:56] LABS: ABSOLUTE BASOPHILS # (AUTO) 0.1 10^3/uL (0.0-0.2); ABSOLUTE LYMPHOCYTES (AUTO) 3.2 10^3/uL (0.5-4.7); ABSOLUTE MONOCYTES (AUTO) 0.3 10^3/uL (0.1-1.4); ABSOLUTE NEUT (AUTO) 5.7 10^3/uL (1.7-8.2); BASOPHILS % (AUTO) 1.3 % (0-2); EOSINOPHILS % (AUTO) 0.4 % (0-6); HEMATOCRIT 42.3 % (36.0-47.0); HEMOGLOBIN 14.4 g/dL (12.0-15.5); LYMPHOCYTES % (AUTO) 33.8 % (13-45); MEAN CORPUSCULAR HEMOGLOBIN 29.4 pg (27.0-33.4); MEAN CORPUSCULAR HGB CONC 34.2 g/dL (32.0-36.0); MEAN CORPUSCULAR VOLUME 86 fl (80-97); PLATELET COUNT 481 10^3/uL (150-450); RED BLOOD COUNT 4.92 10^6/uL (3.72-5.28); RED CELL DISTRIBUTION WIDTH 18.7 % (11.5-14.0); SEGMENTED NEUTROPHILS % (AUTO) 61.5 % (42-78); TOTAL CELLS COUNTED % (AUTO) 100 %; WHITE BLOOD COUNT 9.3 10^3/uL (4.0-10.5)
[2018-04-12] MEDS ORDERED: ONDANSETRON 4 MG TAB.RAPDIS PO ONE (23:12)
[2018-04-12 23:20] LABS: ALANINE AMINOTRANSFERASE 26 U/L (9-52); ALBUMIN 5.2 g/dL (3.5-5.0); ALKALINE PHOSPHATASE 98 U/L (38-126); ANION GAP 18 (5-19); ASPARTATE AMINO TRANSFERASE 42 U/L (14-36); BILIRUBIN,DIRECT 0.2 mg/dL (0.0-0.4); BILIRUBIN,TOTAL 0.4 mg/dL (0.2-1.3); BLOOD UREA NITROGEN 10 mg/dL (7-20); CALCIUM 9.9 mg/dL (8.4-10.2); CARBON DIOXIDE 20 mmol/L (22-30); CHLORIDE 107 mmol/L (98-107); GLUCOSE 91 mg/dL (75-110); POTASSIUM 4.4 mmol/L (3.6-5.0); SODIUM 144.5 mmol/L (137-145); TOTAL PROTEIN 8.5 g/dL (6.3-8.2)
[2018-04-12 23:26] LABS: ACETAMINOPHEN < 10 ug/mL (10-30); SALICYLATE < 1.0 mg/dL (2.0-20.0)
--- NOTE | 2018-04-12 23:29 | ER Document Report ---
ED General - General Chief Complaint: Suicidal Ideation Stated Complaint: ETOH Time Seen by Provider: 04/12/18 21:47 Notes: Patient is a 37-year-old female with a past history of chronic alcohol abuse who presents because apparently she was informed that she needed to come to the emergency department for with withdrawal treatment or to go to medical detox. Patient was at an Alcoholics Anonymous meeting, was instructed to do so by people at that meeting. In triage apparently the patient was stating that she was having suicidal and/or homicidal ideations. The patient at the time of my assessment denies this, stating that she was saying stupid things up front because she is drunk and talks like that often. She denies any specific plan to harm herself. States that "I have 3 kids and a dog, I cannot even think of wanting to hurt myself." She also states repeatedly "honey, if I wanted to hurt myself I would not be here". Denies any previous psychiatric hospitalizations or prior suicide attempts. Nothing improves or worsens her symptoms. Denies any acute medical complaints. TRAVEL OUTSIDE OF THE [place] IN LAST 30 DAYS: No - Related Data Allergies/Adverse Reactions: lorazepam [From Ativan] Allergy (Mild, Verified 07/25/17 16:40) shakiness, paranoid Past Medical History - General Information source: Patient - Social History Smoking Status: Current Every Day Smoker Chew tobacco use (# tins/day): No Frequency of alcohol use: Heavy Drug Abuse: None Lives with: Family Family History: Malignancy - family hx of throat cancer. denies: CAD, CVA, DM, Hyperlipidemia, Hypertension, Thyroid Disfunction Patient has suicidal ideation: No Patient has homicidal ideation: No Pulmonary Medical History: Reports: Hx Asthma, Hx COPD Renal/ Medical History: Denies: Hx Peritoneal Dialysis Psychiatric Medical History: Reports: Hx Schizoaffective Disorder Denies: Hx Depression Past Surgical History: Reports: Hx Adenoidectomy, Hx Section, Hx Tonsillectomy, Hx Tubal Ligation - Immunizations Immunizations up to date: Yes Hx Diphtheria, Pertussis, Tetanus Vaccination: Yes - 2014 Review of Systems - Review of Systems Notes: Constitutional: Negative for fever. HENT: Negative for sore throat. Eyes: Negative for visual changes. Cardiovascular: Negative for chest pain. Respiratory: Negative for shortness of breath. Gastrointestinal: Negative for abdominal pain, vomiting or diarrhea. Genitourinary: Negative for dysuria. Musculoskeletal: Negative for back pain. Skin: Negative for rash. Neurological: Negative for headaches, weakness or numbness. 10 point ROS negative except as marked above and in HPI. Physical Exam - Vital signs Vitals: Temp Pulse Resp BP Pulse Ox 97.6 F 115 H 22 H 125/88 H 92 04/12/18 20:57 04/12/18 20:57 04/12/18 20:57 04/12/18 20:57 04/12/18 20:57 Interpretation: Tachycardic Notes: PHYSICAL EXAMINATION: GENERAL: Appears much older than stated age. In no acute distress. HEAD: Atraumatic, normocephalic. EYES: Pupils equal round and reactive to light, extraocular movements intact, sclera anicteric, conjunctiva are normal. ENT: nares patent, oropharynx clear without exudates. Moist mucous membranes. NECK: Normal range of motion, supple without lymphadenopathy LUNGS: Breath sounds clear to auscultation bilaterally and equal. No wheezes rales or rhonchi. HEART: Regular rate and rhythm without murmurs ABDOMEN: Soft, nontender, normoactive bowel sounds. No guarding, no rebound. No masses appreciated. EXTREMITIES: Normal range of motion, no pitting or edema. No cyanosis. NEUROLOGICAL: No focal neurological deficits. Moves all extremities spontaneousl y and on command. PSYCH: Mildly intoxicated, somewhat anxious SKIN: Warm, Dry, normal turgor, no rashes or lesions noted. Course - Re-evaluation Re-evalutation: 04/12/18 23:28 Patient presents acutely intoxicated, states she is here because members of an alcoholic Anonymous organization encouraged her to come today. The patient apparently in triage made vague suicidal threats but to me denies this, stating that this is all being overblown, that she is not suicidal, not homicidal wants to go home. Denies any specific plan, means or intention to harm herself. Repeatedly states "if I wanted to hurt myself why would I be here". Lists her children and animals as factors that are preventing her from harming herself. I did directly confront her regarding the discrepancy between what she is stating to me and when she sat to the triage nurse. Patient states that the statements are being taken out of context, that she never explicitly stated she want to harm herself. We have agreed that we will await for her son to, who is present at time of triage as well as who brought the patient to the emergency department. If the patient can contract for safety in the context of her son taking her home I will agree to allow the patient to be discharged. She adamantly denies any suicidal ideation and does not want to voluntarily remain. 04/13/18 00:34 Patient's son Dustin is at the bedside. He is the one who brought the patient to the emergency department. He states that the only reason they came is because people at told her that she needed to come here for detox. He states that he has no idea what people are talking about in regards to the patient being suicidal. He states that he never hurt her express any desire to harm herself and that he has no concerns for her safety. The patient continues to express that she is not suicidal. She would like to go home. She does not currently meet involuntary commitment criteria. At this time will discharge with return precautions and follow-up recommendations. Verbal discharge instructions given a the bedside and opportunity for questions given. Patient is in agreement with this plan and has verbalized understanding of return precautions and the need for primary care follow-up in the next 24-72 hours. - Vital Signs Vital signs: Temp Pulse Resp BP Pulse Ox 98.0 F 122 H 20 121/78 92 04/13/18 00:50 04/13/18 00:50 04/13/18 00:50 04/13/18 00:50 04/13/18 00:50 - Laboratory Result Diagrams: 04/12/18 22:40 04/12/18 22:40 Laboratory results interpreted by me: 04/12/18 04/12/18 04/12/18 22:40 22:40 22:47 RDW 18.7 H Plt Count 481 H Carbon Dioxide 20 L AST 42 H Total Protein 8.5 H Albumin 5.2 H Urine Protein 30 H Urine Blood SMALL H Salicylates < 1.0 L Acetaminophen < 10 L Serum Alcohol 355 H* Discharge - Discharge Clinical Impression: Alcohol abuse Alcohol intoxication Qualifiers: Complication of substance-induced condition: uncomplicated Qualified Code(s): F10.920 - Alcohol use, unspecified with intoxication, uncomplicated Condition: Good Disposition: HOME, SELF-CARE Additional Instructions: You need to return to the emergency room immediately if you pass out, or vomiting so severely your unable to keep anything down, start hallucinate, or have any other symptoms that are of concern to you. You need to go to an inpat ient program and should speak with your primary care doctor regarding these resources.
[2018-04-12 23:33] LABS: ALCOHOL 355 mg/dL (NONE DETECTED)
[2018-04-12 23:43] LABS: LIPASE 153.1 U/L (23-300)
[2018-04-12 23:43] LABS: APPEARANCE,URINE CLEAR; BILIRUBIN,URINE NEGATIVE (NEGATIVE); COLOR,URINE YELLOW; GLUCOSE, URINE NEGATIVE (NEGATIVE); KETONES,URINE NEGATIVE (NEGATIVE); LEUKOCYTE ESTERASE,URINE NEGATIVE (NEGATIVE); NITRITE,URINE NEGATIVE (NEGATIVE); PROTEIN,URINE 30 mg/dL (NEGATIVE); URINE SPECIFIC GRAVITY 1.008; UROBILINOGEN,URINE NEGATIVE mg/dL (<2.0)
[2018-04-13 00:05] LABS: URINE AMPHETAMINES SCREEN NEGATIVE; URINE BARBITURATES SCREEN NEGATIVE; URINE BENZODIAZEPINES SCREEN NEGATIVE; URINE COCAINE SCREEN NEGATIVE; URINE MARIJUANA (THC) SCREEN UNCONFIRMED POSITIVE; URINE METHADONE SCREEN NEGATIVE; URINE PHENCYCLIDINE SCREEN NEGATIVE
[2018-04-13 01:15] VITALS: BP 121/78
--- NOTE | 2018-04-13 08:57 | EKG REPORT ---
SEVERITY:- NORMAL ECG - SINUS RHYTHM : Confirmed by: Shireen Guerrero MD 13-Apr-2018 08:56:53
== END 2018-04-13 00:50 | disposition home or self-care (01) ==
LOC: ER 20:51
DX: F10.120 Alcohol abuse with intoxication, uncomplicated (principal); J44.9 Chronic obstructive pulmonary disease, unspecified; F17.200 Nicotine dependence, unspecified, uncomplicated; Z88.8 Allergy status to other drugs, medicaments and biological substances
CPT/HCPCS: 36415; 80053; 80307; 81001; 83690; 84703; 85025; 93005; 93010; 99285

== ENCOUNTER 2019-04-17 00:08 | Emergency (ER) | payer SELFPAY | END 2019-04-17 03:58 | disposition left against medical advice (07) | LOC: ER 00:08 | DX: Z53.21 Procedure and treatment not carried out due to patient leaving prior to being seen by health care provider (principal) ==

== ENCOUNTER 2019-05-02 21:02 | Emergency (ER) | payer SELFPAY ==
[2019-05-02] MEDS ORDERED: ONDANSETRON 4 MG TAB.RAPDIS PO ONE (21:36)
--- NOTE | 2019-05-02 21:37 | ER Document Report ---
ED Medical Screen (RME) - General Chief Complaint: Abdominal Pain Stated Complaint: ABDOMINAL PAIN Time Seen by Provider: 05/02/19 21:35 Notes: HPI: 38-year-old female with history of pancreatitis presenting with 2days increasingly worsening epigastric pain and vomiting. Patient is concerned she has pancreatitis again. Patient states she has not been drinking. She states she is being treated for an MRSA infection on her toe with doxycycline and the discomfort in the abdomen with the vomiting started after starting this medication. I have greeted and performed a rapid initial assessment of this patient. A comprehensive ED assessment and evaluation of the patient, analysis of test results and completion of the medical decision making process will be conducted by additional ED providers PHYSICAL EXAMINATION: GENERAL: Well-appearing, well-nourished and in mild acute distress. HEAD: Atraumatic, normocephalic. EYES: sclera anicteric, conjunctiva are normal. ENT: Moist mucous membranes. NECK: Normal range of motion LUNGS: Normal work of breathing, clear to auscultation HEART: 2+ radial pulses bilaterally, tachycardic ABD: limited by positioning for exam in triage. Mild tenderness through the epigastric region on palpation EXTREMITIES: no pitting or edema. No cyanosis. NEUROLOGICAL: No focal neurological deficits. Moves all extremities spontaneously and on command. PSYCH: Normal mood, normal affect. SKIN: Warm, Dry, normal turgor, no rashes or lesions noted. TRAVEL OUTSIDE OF THE [place] IN LAST 30 DAYS: No - Related Data Allergies/Adverse Reactions: lorazepam [From Ativan] Allergy (Mild, Verified 05/02/19 21:31) shakiness, paranoid Past Medical History - Social History Frequency of alcohol use: None Drug Abuse: None Pulmonary Medical History: Reports: Hx Asthma, Hx COPD Renal/ Medical History: Denies: Hx Peritoneal Dialysis Psychiatric Medical History: Reports: Hx Schizoaffective Disorder Denies: Hx Depression Past Surgical History: Reports: Hx Adenoidectomy, Hx Section, Hx Tonsillectomy, Hx Tubal Ligation - Immunizations Immunizations up to date: Yes Hx Diphtheria, Pertussis, Tetanus Vaccination: Yes - 2014 Physical Exam - Vital signs Vitals: Temp Pulse Resp BP Pulse Ox 97.8 F 112 H 28 H 122/74 95 05/02/19 21:16 05/02/19 21:16 05/02/19 21:16 05/02/19 21:16 05/02/19 21:16 Course - Vital Signs Vital signs: Temp Pulse Resp BP Pulse Ox 97.8 F 112 H 28 H 122/74 95 05/02/19 21:16 05/02/19 21:16 05/02/19 21:16 05/02/19 21:16 05/02/19 21:16
[2019-05-02 22:14] LABS: ABSOLUTE LYMPHOCYTES (AUTO) 1.8 10^3/uL (0.5-4.7); ABSOLUTE MONOCYTES (AUTO) 0.9 10^3/uL (0.1-1.4); ABSOLUTE NEUT (AUTO) 6.4 10^3/uL (1.7-8.2); BASOPHILS % (AUTO) 0.2 % (0-2); EOSINOPHILS % (AUTO) 0.3 % (0-6); HEMATOCRIT 48.1 % (36.0-47.0); HEMOGLOBIN 16.6 g/dL (12.0-15.5); LYMPHOCYTES % (AUTO) 19.7 % (13-45); MEAN CORPUSCULAR HEMOGLOBIN 31.6 pg (27.0-33.4); MEAN CORPUSCULAR HGB CONC 34.4 g/dL (32.0-36.0); MEAN CORPUSCULAR VOLUME 92 fl (80-97); MONOCYTES % (AUTO) 9.8 % (3-13); PLATELET COUNT 224 10^3/uL (150-450); RED BLOOD COUNT 5.25 10^6/uL (3.72-5.28); RED CELL DISTRIBUTION WIDTH 16.8 % (11.5-14.0); TOTAL CELLS COUNTED % (AUTO) 100 %; WHITE BLOOD COUNT 9.1 10^3/uL (4.0-10.5)
[2019-05-02 22:20] LABS: APPEARANCE,URINE CLEAR; BILIRUBIN,URINE NEGATIVE (NEGATIVE); COLOR,URINE STRAW; GLUCOSE, URINE NEGATIVE (NEGATIVE); KETONES,URINE NEGATIVE (NEGATIVE); LEUKOCYTE ESTERASE,URINE NEGATIVE (NEGATIVE); NITRITE,URINE NEGATIVE (NEGATIVE); PROTEIN,URINE NEGATIVE (NEGATIVE); URINE SPECIFIC GRAVITY 1.003; UROBILINOGEN,URINE NEGATIVE mg/dL (<2.0)
[2019-05-02 22:36] LABS: ALBUMIN 4.4 g/dL (3.5-5.0); ALKALINE PHOSPHATASE 107 U/L (38-126); ANION GAP 18 (5-19); ASPARTATE AMINO TRANSFERASE 66 U/L (14-36); BILIRUBIN,DIRECT 0.5 mg/dL (0.0-0.4); BILIRUBIN,TOTAL 0.6 mg/dL (0.2-1.3); BLOOD UREA NITROGEN 10 mg/dL (7-20); CALCIUM 9.8 mg/dL (8.4-10.2); CARBON DIOXIDE 24 mmol/L (22-30); CHLORIDE 94 mmol/L (98-107); GLUCOSE 126 mg/dL (75-110); POTASSIUM 4.2 mmol/L (3.6-5.0)
[2019-05-03] MEDS ORDERED: NORMAL SALINE 1000 ML 1,000 ML IV ONE (01:37)
[2019-05-03] MEDS ORDERED: MORPHINE SULFATE 10 MG/ML INJ IV ONE (01:37)
[2019-05-03] MEDS ORDERED: ONDANSETRON HCL INJ/PF 4 MG/2 ML SDV IV ONE (01:37)
--- NOTE | 2019-05-03 01:38 | ER Document Report ---
ED GI/ - General Chief Complaint: Abdominal Pain Stated Complaint: ABDOMINAL PAIN Time Seen by Provider: 05/02/19 21:35 Primary Care Provider: TOY CROWLEY MD [Primary Care Provider] - Follow up as needed Notes: Patient is a 38-year-old female that comes to the emergency department for chief complaint of mid upper abdominal pain and vomiting. She states that for the past 2 days her symptoms have been worsening. Patient has a history of pancreatitis, she states she previously was a heavy alcoholic, she states she only drinks occasionally now but she does admit to drinking 1-2 drinks over the past few days. Patient denies getting withdrawals anymore. Patient has not had any abdominal surgeries. Patient states that she was placed on doxycycline and terbinafine because of a infection between her right fourth and fifth toes, she states she has been on this for over a week and now every time she tries to take it she vomits. She states the area is essentially healed up on her foot now as well. She denies fevers, she denies any other complaints. She denies recreational drugs. TRAVEL OUTSIDE OF THE [place] IN LAST 30 DAYS: No - Related Data Allergies/Adverse Reactions: lorazepam [From Ativan] Allergy (Mild, Verified 05/02/19 21:31) shakiness, paranoid peanut Allergy (Verified 05/03/19 01:08) Sulfa (Sulfonamide Antibiotics) Allergy (Verified 05/03/19 01:08) Past Medical History - General Information source: Patient - Social History Smoking Status: Current Every Day Smoker Frequency of alcohol use: Occasional Drug Abuse: None Lives with: Family Family History: Malignancy - family hx of throat cancer. denies: CAD, CVA, DM, Hyperlipidemia, Hypertension, Thyroid Disfunction Patient has suicidal ideation: No Patient has homicidal ideation: No Pulmonary Medical History: Reports: Hx Asthma, Hx COPD Renal/ Medical History: Denies: Hx Peritoneal Dialysis Psychiatric Medical History: Reports: Hx Schizoaffective Disorder Denies: Hx Depression Past Surgical History: Reports: Hx Adenoidectomy, Hx Section, Hx Tonsillectomy, Hx Tubal Ligation - Immunizations Immunizations up to date: Yes Hx Diphtheria, Pertussis, Tetanus Vaccination: Yes - 2014 Review of Systems - Review of Systems Constitutional: No symptoms reported EENT: No symptoms reported Cardiovascular: No symptoms reported Respiratory: No symptoms reported Gastrointestinal: See HPI Genitourinary: No symptoms reported Female Genitourinary: No symptoms reported Musculoskeletal: No symptoms reported Skin: No symptoms reported Hematologic/Lymphatic: No symptoms reported Neurological/Psychological: No symptoms reported Physical Exam - Vital signs Vitals: Temp Pulse Resp BP Pulse Ox 97.8 F 112 H 28 H 122/74 95 05/02/19 21:16 05/02/19 21:16 05/02/19 21:16 05/02/19 21:16 05/02/19 21:16 - Notes Notes: GENERAL: Alert, interacts well. No acute distress. HEAD: Normocephalic, atraumatic. EYES: Pupils equal, round, and reactive to light. Extraocular movements intact. ENT: Oral mucosa moist, tongue midline. Oropharynx unremarkable. Airway patent. LUNGS: Clear to auscultation bilaterally, no wheezes, rales, or rhonchi. No respiratory distress. HEART: Borderline tachycardia, normal rhythm, no murmur ABDOMEN: Epigastric tenderness but remaining abdomen is soft and benign. No guarding or rigidity. GENITOURINARY: Deferred EXTREMITIES: Moves all 4 extremities spontaneously. No edema, normal radial and dorsalis pedis pulses bilaterally. No cyanosis. BACK: no cervical, thoracic, lumbar midline tenderness. No saddle anesthesia, normal distal neurovascular exam. Moves all extremities in full range of motion. NEUROLOGICAL: Alert and oriented x3. Normal speech. Cranial nerves II through XII grossly intact. PSYCH: Normal affect, normal mood. SKIN: Warm, dry, normal turgor. No rashes or lesions noted. Course - Re-evaluation Re-evalutation: Patient has epigastric tenderness on exam, remaining abdomen is benign. Patient is actually quite well-appearing. Vital signs normalized after IV fluids and medications. CBC unremarkable except for concentrated hemoglobin, chemistry shows mildly elevated LFTs and borderline elevated lipase in the 800s. This is suggestive of alcohol-related pancreatitis based on patient's history and HPI. Ultrasound is negative for acute findings suggesting surgical pathology but does also suggest acute pancreatitis. Patient has no fever, on reevaluation symptoms completely resolved, patient is requesting to leave. Patient was p.o. challenged and she performed this without any difficulty. Patient will be prescribed medications for symptom management, discussed treatment of pancreatitis at home, discussed strict alcohol abstinence, discussed return precautions. Patient states appreciation and agreement. Stable and well-appearing at time of discharge, she is going home with family. - Vital Signs Vital signs: Temp Pulse Resp BP Pulse Ox 97.7 F 96 18 104/53 L 98 05/03/19 03:50 05/03/19 03:50 05/03/19 03:50 05/03/19 03:50 05/03/19 03:50 - Laboratory Result Diagrams: 05/02/19 22:00 05/02/19 22:00 Laboratory results interpreted by me: 05/02/19 05/02/19 22:00 22:00 Hgb 16.6 H Hct 48.1 H RDW 16.8 H Sodium 135.6 L Chloride 94 L Glucose 126 H Direct Bilirubin 0.5 H AST 66 H ALT 73 H Lipase 827.9 H Discharge - Discharge Clinical Impression: Abdominal pain Qualifiers: Abdominal location: generalized Qualified Code(s): R10.84 - Generalized abdominal pain Pancreatitis Qualifiers: Chronicity: acute Pancreatitis type: unspecified pancreatitis type Acute pancreatitis complication: unspecified Qualified Code(s): K85.90 - Acute pancreatitis without necrosis or infection, unspecified Condition: Stable Disposition: HOME, SELF-CARE Additional Instructions: Your work-up does indicate pancreatitis but this is milder than before and overall reassuring. I recommend clear liquid diet for the next 2 to 3 days, plenty of fluids. take the nausea medication and pain medication if needed, take the famotidine as prescribed. Follow close with primary care. Avoid any alcohol. I recommend also avoiding smoking, NSAIDs, spicy food, caffeine at this time. Return if you worsen including severe worsening pain, uncontrolled vomiting, fever, or any other concerning symptoms. Prescriptions: Famotidine [Pepcid 20 mg Tablet] 20 mg PO BID #14 tablet Oxycodone HCl/Acetaminophen [Percocet 5-325 mg Tablet] 1 - 2 tab PO TID PRN #10 tablet PRN Reason: Ondansetron [Zofran Odt 4 mg Tablet] 1 - 2 tab PO Q4H PRN #15 tab.rapdis PRN Reason: For Nausea/Vomiting Referrals: TOY CROWLEY MD [Primary Care Provider] - Follow up as needed
[2019-05-03] MEDS ORDERED: FAMOTIDINE 20 MG TABLET PO ONE (02:54)
[2019-05-03] MEDS ORDERED: PROMETHAZINE HCL 25 MG TABLET PO ONE (02:54)
--- NOTE | 2019-05-03 03:12 | RADIOLOGY REPORT (SQ) ---
US ABDOMEN LIMITED HISTORY: RUQ abdominal pain COMPARISON: none FINDINGS: Transabdominal sonographic images through the right upper quadrant were performed with grayscale, color and Doppler evaluation. The liver demonstrates increased echogenicity diffusely. The right hepatic lobe measures 17.4 cm in length. Imaged hepatic and portal veins are patent with normal directional flow. No intrahepatic or extrahepatic biliary ductal dilatation. 2.3-mm common hepatic duct. The gallbladder is adequately distended. No gallstone, gallbladder wall thickening or pericholecystic fluid. Negative sonographic Trujillo's sign. The visualized head and body of the pancreas reveal normal to mildly decreased echogenicity with normal size. Visualized portions of the pancreatic tail demonstrate enlargement/swelling and poor margination. The right kidney measures 10.8 cm in length. No shadowing calculi or right-sided hydronephrosis. No free fluid in Morison's pouch. No abdominal aortic aneurysm. No ascites is noted on this limited exam. IMPRESSION: Probable acute pancreatitis. No cholelithiasis, evidence of acute cholecystitis, or evidence of biliary obstruction.
[2019-05-03] MEDS ORDERED: HYDROCODONE/ACETAMINOPHEN 5-325 MG (6 TAB/ER DISP) PO PRN (03:23)
[2019-05-03] MEDS ORDERED: ONDANSETRON ODT 4 MG TAB (6 TAB/ER DISP) PO PRN (03:23)
[2019-05-03 03:53] VITALS: BP 104/53
== END 2019-05-03 03:54 | disposition home or self-care (01) ==
LOC: ER 21:02
DX: K85.90 Acute pancreatitis without necrosis or infection, unspecified (principal); R10.84 Generalized abdominal pain; R11.10 Vomiting, unspecified; L08.9 Local infection of the skin and subcutaneous tissue, unspecified; F17.200 Nicotine dependence, unspecified, uncomplicated; J44.9 Chronic obstructive pulmonary disease, unspecified; Z88.8 Allergy status to other drugs, medicaments and biological substances; Z91.010 Allergy to peanuts; Z88.2 Allergy status to sulfonamides
CPT/HCPCS: 99284; 96361; 96374; 96375; 36415; 83690; 85025; 80053; 81001; 76705; S0119; J2270; J2405; J7030

== ENCOUNTER 2019-05-04 12:43 | Inpatient (IN) | payer SELFPAY ==
--- NOTE | 2019-05-04 12:51 | ER Document Report ---
ED Medical Screen (RME) - General Chief Complaint: Abdominal Pain Stated Complaint: ABDOMINAL PAIN Time Seen by Provider: 05/04/19 12:49 Primary Care Provider: TOY CROWLEY MD [Primary Care Provider] - Follow up as needed Notes: HPI: 38-year-old female with pancreatitis history seen 2 days ago for similar complaint complaining of continued upper abdominal pain that does not resolve with pain medication she was prescribed the other day. Patient with a history of alcoholic pancreatitis in the past. Patient had vomiting with abdominal pain 2 days ago, states nausea has resolved with the nausea medications but the oxycodone is not helping her abdominal pain and she is still not been able to eat or sleep. I have greeted and performed a rapid initial assessment of this patient. A comprehensive ED assessment and evaluation of the patient, analysis of test results and completion of the medical decision making process will be conducted by additional ED providers PHYSICAL EXAMINATION: GENERAL: Well-appearing, well-nourished and in mild acute distress. HEAD: Atraumatic, normocephalic. EYES: sclera anicteric, conjunctiva are normal. ENT: Moist mucous membranes. NECK: Normal range of motion LUNGS: Normal work of breathing HEART: 2+ radial pulses bilaterally ABD: limited by positioning for exam in triage. Mild tenderness in the upper abdomen on palpation EXTREMITIES: no pitting or edema. No cyanosis. NEUROLOGICAL: No focal neurological deficits. Moves all extremities spontaneously and on command. PSYCH: Normal mood, normal affect. SKIN: Warm, Dry, normal turgor, no rashes or lesions noted. TRAVEL OUTSIDE OF THE [place] IN LAST 30 DAYS: No - Related Data Allergies/Adverse Reactions: lorazepam [From Ativan] Allergy (Mild, Verified 05/04/19 12:49) shakiness, paranoid peanut Allergy (Verified 05/04/19 12:49) Sulfa (Sulfonamide Antibiotics) Allergy (Verified 05/04/19 12:49) Past Medical History Pulmonary Medical History: Reports: Hx Asthma, Hx COPD Renal/ Medical History: Denies: Hx Peritoneal Dialysis Psychiatric Medical History: Reports: Hx Schizoaffective Disorder Denies: Hx Depression Past Surgical History: Reports: Hx Adenoidectomy, Hx Section, Hx Tonsillectomy, Hx Tubal Ligation - Immunizations Immunizations up to date: Yes Hx Diphtheria, Pertussis, Tetanus Vaccination: Yes - 2014 Doctor's Discharge - Discharge Referrals: TOY CROWLEY MD [Primary Care Provider] - Follow up as needed
[2019-05-04 13:34] LABS: ABSOLUTE LYMPHOCYTES (AUTO) 1.4 10^3/uL (0.5-4.7); ABSOLUTE MONOCYTES (AUTO) 1.6 10^3/uL (0.1-1.4); ABSOLUTE NEUT (AUTO) 7.3 10^3/uL (1.7-8.2); BASOPHILS % (AUTO) 0.5 % (0-2); EOSINOPHILS % (AUTO) 0.4 % (0-6); HEMATOCRIT 46.5 % (36.0-47.0); HEMOGLOBIN 16.5 g/dL (12.0-15.5); LYMPHOCYTES % (AUTO) 13.4 % (13-45); MEAN CORPUSCULAR HGB CONC 35.4 g/dL (32.0-36.0); MEAN CORPUSCULAR VOLUME 90 fl (80-97); MONOCYTES % (AUTO) 15.4 % (3-13); PLATELET COUNT 262 10^3/uL (150-450); RED BLOOD COUNT 5.15 10^6/uL (3.72-5.28); RED CELL DISTRIBUTION WIDTH 16.9 % (11.5-14.0); SEGMENTED NEUTROPHILS % (AUTO) 70.3 % (42-78); TOTAL CELLS COUNTED % (AUTO) 100 %; WHITE BLOOD COUNT 10.3 10^3/uL (4.0-10.5)
[2019-05-04 13:41] LABS: ALBUMIN 3.6 g/dL (3.5-5.0); ALKALINE PHOSPHATASE 136 U/L (38-126); ANION GAP 9 (5-19); ASPARTATE AMINO TRANSFERASE 42 U/L (14-36); BILIRUBIN,DIRECT 0.3 mg/dL (0.0-0.4); BILIRUBIN,TOTAL 1.7 mg/dL (0.2-1.3); BLOOD UREA NITROGEN 8 mg/dL (7-20); CALCIUM 9.6 mg/dL (8.4-10.2); CARBON DIOXIDE 29 mmol/L (22-30); CHLORIDE 93 mmol/L (98-107); GLUCOSE 107 mg/dL (75-110); POTASSIUM 3.5 mmol/L (3.6-5.0); TOTAL PROTEIN 6.7 g/dL (6.3-8.2)
[2019-05-04 13:47] LABS: APPEARANCE,URINE SLIGHTLY-CLOUDY; BILIRUBIN,URINE NEGATIVE (NEGATIVE); COLOR,URINE AMBER; GLUCOSE, URINE NEGATIVE (NEGATIVE); KETONES,URINE NEGATIVE (NEGATIVE); LEUKOCYTE ESTERASE,URINE NEGATIVE (NEGATIVE); NITRITE,URINE NEGATIVE (NEGATIVE); PROTEIN,URINE 30 mg/dL (NEGATIVE); URINE SPECIFIC GRAVITY 1.028; UROBILINOGEN,URINE NEGATIVE mg/dL (<2.0)
[2019-05-04] MEDS ORDERED: NORMAL SALINE 1000 ML 1,000 ML IV ONE (15:20)
[2019-05-04] MEDS ORDERED: ONDANSETRON HCL INJ/PF 4 MG/2 ML SDV IV ONE (15:24)
[2019-05-04] MEDS ORDERED: MORPHINE SULFATE 10 MG/ML INJ IV ONE (15:24)
--- NOTE | 2019-05-04 15:59 | ER Document Report ---
ED GI/ - General Chief Complaint: Abdominal Pain Stated Complaint: ABDOMINAL PAIN Time Seen by Provider: 05/04/19 14:55 Mode of Arrival: Ambulatory Information source: Patient Notes: Patient presents complaining of upper abdominal pain. Patient states she was here TRAVEL OUTSIDE OF THE [place] IN LAST 30 DAYS: No - HPI Patient complains to provider of: Abdominal pain, Vomiting Onset: Other - 5 days Timing/Duration: Worse Quality of pain: Sharp Pain Level: 5 Location: Other - Upper abdominal tenderness Vaginal bleeding (Compared to normal period): None Associated symptoms: Loss of appetite, Nausea, Vomiting. denies: Diarrhea, Dysuria, Fever, Urinary hesitancy, Urinary frequency, Urinary retention, Urinary urgency Exacerbated by: Food Relieved by: Denies Similar symptoms previously: Yes Recently seen / treated by doctor: Yes - Related Data Allergies/Adverse Reactions: lorazepam [From Ativan] Allergy (Mild, Verified 05/04/19 12:49) shakiness, paranoid peanut Allergy (Verified 05/04/19 12:49) Sulfa (Sulfonamide Antibiotics) Allergy (Verified 05/04/19 12:49) Home Medications: antifungal cream, antifungal PO pill, oxycodone, zofran, pepcid Past Medical History - General Information source: Patient - Social History Smoking Status: Current Every Day Smoker Chew tobacco use (# tins/day): No Frequency of alcohol use: None Drug Abuse: None Occupation: None Lives with: Family Family History: Malignancy - family hx of throat cancer. denies: CAD, CVA, DM, Hyperlipidemia, Hypertension, Thyroid Disfunction Patient has suicidal ideation: No Patient has homicidal ideation: No Pulmonary Medical History: Reports: Hx Asthma, Hx COPD Renal/ Medical History: Denies: Hx Peritoneal Dialysis GI Medical History: Reports: Hx Pancreatitis Psychiatric Medical History: Reports: Hx Schizoaffective Disorder Denies: Hx Depression Past Surgical History: Reports: Hx Adenoidectomy, Hx Section, Hx Tonsillectomy, Hx Tubal Ligation - Immunizations Immunizations up to date: Yes Hx Diphtheria, Pertussis, Tetanus Vaccination: Yes - 2014 Review of Systems - Review of Systems Constitutional: No symptoms reported. denies: Fever, Recent illness EENT: No symptoms reported Cardiovascular: No symptoms reported. denies: Chest pain Respiratory: No symptoms reported. denies: Cough Gastrointestinal: Abdominal pain, Nausea, Vomiting. denies: Diarrhea Genitourinary: No symptoms reported. denies: Dysuria Female Genitourinary: No symptoms reported Musculoskeletal: No symptoms reported. denies: Back pain Skin: No symptoms reported Hematologic/Lymphatic: No symptoms reported Neurological/Psychological: No symptoms reported Physical Exam - Vital signs Vitals: Temp Pulse Resp BP Pulse Ox 98.0 F 105 H 20 127/87 H 97 05/04/19 12:47 05/04/19 12:47 05/04/19 12:47 05/04/19 12:47 05/04/19 12:47 - General General appearance: Appears well, Alert In distress: None - HEENT Head: Normocephalic, Atraumatic Eyes: Normal Conjunctiva: Normal Nasal: Normal Mouth/Lips: Normal Mucous membranes: Normal Neck: Normal, Supple. No: Lymphadenopathy - Respiratory Respiratory status: No respiratory distress Chest status: Nontender Breath sounds: Normal. No: Rales, Rhonchi, Stridor, Wheezing Chest palpation: Normal - Cardiovascular Rhythm: Regular Heart sounds: S1 appreciated, S2 appreciated - Abdominal Inspection: Normal Distension: No distension Bowel sounds: Normal Tenderness: Tender - Upper abdominal tenderness - Back Back: Normal, Nontender. No: CVA tenderness - Extremities General upper extremity: Normal inspection, Nontender, Normal strength General lower extremity: Normal inspection, Nontender, Normal strength - Neurological Jessica Coma Scale Eye Opening: Spontaneous [place] Coma Scale Verbal: Oriented Jessica Coma Scale Motor: Obeys Commands [place] Coma Scale Total: 15 - Psychological Associated symptoms: Normal affect, Normal mood - Skin Skin Temperature: Warm Skin Moisture: Dry Skin Color: Normal Course - Re-evaluation Re-evalutation: 05/04/19 16:14 Patient once with pancreatitis. Patient with upward trending lipase despite maintaining a clear liquid diet at home. Patient is agreeable with admission at this time. Called and spoke with Matthias MOJICA who accepts patient for admission at this time. - Vital Signs Vital signs: Temp Pulse Resp BP Pulse Ox 98.0 F 105 H 20 127/87 H 97 05/04/19 12:47 05/04/19 12:47 05/04/19 12:47 05/04/19 12:47 05/04/19 12:47 - Laboratory Result Diagrams: 05/04/19 13:00 05/04/19 13:00 Laboratory results interpreted by me: 05/04/19 05/04/19 05/04/19 13:00 13:00 13:00 Hgb 16.5 H RDW 16.9 H [place] % (Auto) 15.4 H Absolute Monos (auto) 1.6 H Sodium 130.6 L Potassium 3.5 L Chloride 93 L Total Bilirubin 1.7 H AST 42 H ALT 43 H Alkaline Phosphatase 136 H Amylase Lipase 2881.2 H Urine Protein 30 H Urine Ascorbic Acid 40 H 05/04/19 13:00 Hgb RDW [place] % (Auto) Absolute Monos (auto) Sodium Potassium Chloride Total Bilirubin AST ALT Alkaline Phosphatase Amylase 381 H Lipase Urine Protein Urine Ascorbic Acid 05/04/19 16:13 Labs- Entire Visit 05/04/19 05/04/19 05/04/19 13:00 13:00 13:00 WBC 10.3 RBC 5.15 Hgb 16.5 H Hct 46.5 MCV 90 MCH 32.0 MCHC 35.4 RDW 16.9 H Plt Count 262 Lymph % (Auto) 13.4 [place] % (Auto) 15.4 H Eos % (Auto) 0.4 Baso % (Auto) 0.5 Absolute Neuts (auto) 7.3 Absolute Lymphs (auto) 1.4 Absolute Monos (auto) 1.6 H Absolute Eos (auto) 0.0 Absolute Basos (auto) 0.0 Seg Neutrophils % 70.3 Sodium 130.6 L Potassium 3.5 L Chloride 93 L Carbon Dioxide 29 Anion Gap 9 BUN 8 Creatinine 0.67 Est GFR ( Amer) > 60 Est GFR (MDRD) Non-Af > 60 Glucose 107 Calcium 9.6 Total Bilirubin 1.7 H Direct Bilirubin 0.3 Neonat Total Bilirubin Not Reportable Neonat Direct Bilirubin Not Reportable Neonat Indirect Bili Not Reportable AST 42 H ALT 43 H Alkaline Phosphatase 136 H Total Protein 6.7 Albumin 3.6 Lipase 2881.2 H Serum HCG, Qual Urine Color [place] Urine Appearance SLIGHTLY-CLOUDY Urine pH 5.0 Ur Specific [place] 1.028 Urine Protein 30 H Urine Glucose (UA) NEGATIVE Urine Ketones NEGATIVE Urine Blood NEGATIVE Urine Nitrite NEGATIVE Urine Bilirubin NEGATIVE Urine Urobilinogen NEGATIVE Ur Leukocyte Esterase NEGATIVE Urine WBC (Auto) 4 Urine RBC (Auto) 1 Squamous Epi Cells Auto 4 Urine Mucus (Auto) MANY Urine Ascorbic Acid 40 H 05/04/19 13:00 WBC RBC Hgb Hct MCV MCH MCHC RDW Plt Count Lymph % (Auto) [place] % (Auto) Eos % (Auto) Baso % (Auto) Absolute Neuts (auto) Absolute Lymphs (auto) Absolute Monos (auto) Absolute Eos (auto) Absolute Basos (auto) Seg Neutrophils % Sodium Potassium Chloride Carbon Dioxide Anion Gap BUN Creatinine Est GFR ( Amer) Est GFR (MDRD) Non-Af Glucose Calcium Total Bilirubin Direct Bilirubin Neonat Total Bilirubin Neonat Direct Bilirubin Neonat Indirect Bili AST ALT Alkaline Phosphatase Total Protein Albumin Lipase Serum HCG, Qual NEGATIVE Urine Color Urine Appearance Urine pH Ur Specific [place] Urine Protein Urine Glucose (UA) Urine Ketones Urine Blood Urine Nitrite Urine Bilirubin Urine Urobilinogen Ur Leukocyte Esterase Urine WBC (Auto) Urine RBC (Auto) Squamous Epi Cells Auto Urine Mucus (Auto) Urine Ascorbic Acid Reviewed labs from ER visit from 2 days prior - Diagnostic Test Radiology reviewed: Reports reviewed Discharge - Discharge Clinical Impression: Pancreatitis Qualifiers: Chronicity: acute Pancreatitis type: unspecified pancreatitis type Acute pancr eatitis complication: unspecified Qualified Code(s): K85.90 - Acute pancreatitis without necrosis or infection, unspecified Abdominal pain Qualifiers: Abdominal location: upper abdomen, unspecified Qualified Code(s): R10.10 - Upper abdominal pain, unspecified Condition: Stable Disposition: ADMITTED INPATIENT Admitting Provider: Angie (Hospitalist) Unit Admitted: Medical Floor
--- NOTE | 2019-05-04 16:09 | RADIOLOGY REPORT (SQ) ---
EXAM DESCRIPTION: U/S ABDOMEN LIMITED W/O DOP COMPLETED DATE/TIME: 05/04/2019 3:57 pm REASON FOR STUDY: upper abd pain, pancreatitis COMPARISON: 05/03/2019 TECHNIQUE: Dynamic and static grayscale images acquired of the abdomen and recorded on PACS. Jin lizama selected color Doppler and spectral images recorded. LIMITATIONS: None. FINDINGS: PANCREAS: Pancreas is poorly seen. Cannot identify the tail. LIVER: Diffuse fatty infiltration. LIVER VASCULATURE: Normal directional flow of the main portal vein and hepatic veins. GALLBLADDER: No stones. Normal wall thickness. No pericholecystic fluid. ULTRASOUND-DETECTED DELGADO'S SIGN: Negative. INTRAHEPATIC DUCTS AND COMMON DUCT: CBD and intrahepatic ducts normal caliber. No filling defects. INFERIOR VENA CAVA: Normal flow. AORTA: No aneurysm. RIGHT KIDNEY: Normal size. Normal echogenicity. No solid or suspicious masses. No hydronephrosis. No calcifications. PERITONEAL AND RIGHT PLEURAL SPACE: No ascites or effusions. OTHER: No other significant findings. IMPRESSION: Diffuse fatty liver. No gallstones. Pancreas poorly seen. Tail not identified on y's study. There is been no interval change since yesterday's study. TECHNICAL DOCUMENTATION: JOB ID: [id number] 2010 [employer]- All Rights Reserved Reading location - IP/workstation name: [email or web address]
[2019-05-04] MEDS ORDERED: ONDANSETRON 4 MG TAB.RAPDIS PO PRN (16:54)
[2019-05-04] MEDS ORDERED: ACETAMINOPHEN 325 MG TABLET PO PRN (16:54)
[2019-05-04] MEDS ORDERED: ONDANSETRON HCL INJ/PF 4 MG/2 ML SDV IV PRN (16:54)
[2019-05-04] MEDS ORDERED: LEVALBUTEROL HCL NEB 1.25 MG/3 ML AMPUL NEB PRN (17:00)
[2019-05-04] MEDS ORDERED: ALBUTEROL SULFATE HFA (90 MCG/PUFF) 8 GM MDI IH PRN (17:01)
--- NOTE | 2019-05-04 17:15 | PDOC H&P ---
History of Present Illness Admission Date/PCP: 05/04/19 16:20 TOY CROWLEY MD History of Present Illness: TACHO SALINAS is a 38 year old female comes in with a 2-day history of abdominal pain. Patient states she was actually in the emergency room 2 days ago with abdominal pain and some vomiting. At that time her lipase was 827 today she returns with continued abdominal pain but no vomiting in the last 48 hours and her lipase is 2881. Patient states she has had no fever no chills. No vomiting in 48 hours but she also states she has had nothing to eat in 5 days. Patient has had multiple episodes of pancreatitis back in 2018 which looks like her first case her lipase was 9632. She states she used to drink alcohol and back in March 2018 she was in the ER with a blood alcohol 355. Patient states she has not drank any alcohol however in 6 or 7 months. Patient also states that about a month ago she was diagnosed with "MRSA". He said she has had a ulcer or lesion between her fourth and fifth toe on her right foot for about 6 months and 1 month ago it started getting worse. She went to the [facility] and is culture was done and supposedly it is MRSA. She has been on tetracycline now for several days and it actually upset her stomach and caused the vomiting. Patient had an ultrasound done in the emergency room but unfortunately it did not visualize the pancreas or the tail of the pancreas therefore I have ordered a CT scan of the abdomen and pelvis IV and oral contrast. She has normal renal functions. Patient has had 1 dose of morphine in the emergency room she says she is feeling better. Patient would like to try clear liquids tonight after she finishes her CT scan. Patient appears to be medically stable for transfer to the floor Past Medical History Pulmonary Medical History: Reports: Asthma, Chronic Obstructive Pulmonary Disease (COPD) GI History Note: Pancreatitis Psychiatric Medical History: Reports: Alcohol Dependency, Schizoaffective Dis order, Tobacco Dependency Denies: Depression Past Surgical History Past Surgical History: Reports: Adenoidectomy, Section, Tonsillectomy, Tubal Ligation Social History Smoking Status: Current Every Day Smoker Electronic Cigarette use?: No Frequency of Alcohol Use: Heavy Hx Recreational Drug Use: No Drugs: None Hx Prescription Drug Abuse: No - Advance Directive Resuscitation Status: Full Code Family History Family History: Malignancy - family hx of throat cancer. denies: CAD, CVA, DM, Hyperlipidemia, Hypertension, Thyroid Disfunction Parental Family History Reviewed: No Children Family History Reviewed: No Sibling(s) Family History Reviewed.: No Medication/Allergy Home Medications: Albuterol Sulfate [Proair HFA Inhalation Aerosol 8.5 gm MDI] 2 puff IH Q4HP PRN 07/25/17 Famotidine [Pepcid 20 mg Tablet] 20 mg PO BID #14 tablet 05/03/19 Ondansetron [Zofran Odt 4 mg Tablet] 1 - 2 tab PO Q4H PRN #15 tab.rapdis 05/03/19 Oxycodone HCl/Acetaminophen [Percocet 5-325 mg Tablet] 1 - 2 tab PO TID PRN #10 tablet 05/03/19 Allergies/Adverse Reactions: lorazepam [From Ativan] Allergy (Mild, Verified 05/04/19 12:49) shakiness, paranoid peanut Allergy (Verified 05/04/19 12:49) Sulfa (Sulfonamide Antibiotics) Allergy (Verified 05/04/19 12:49) Review of Systems Constitutional: ABSENT: chills, fever(s), headache(s), weight gain, weight loss Cardiovascular: ABSENT: chest pain, dyspnea on exertion, edema, orthropnea, palpitations Respiratory: ABSENT: cough, hemoptysis Gastrointestinal: PRESENT: abdominal pain, bloating, nausea, vomiting Neurological: ABSENT: abnormal gait, abnormal speech, confusion, dizziness, focal weakness, syncope Psychiatric: ABSENT: anxiety, depression, homidical ideation, suicidal ideation Physical Exam Vital Signs: Temp Pulse Resp BP Pulse Ox 98.0 F 105 H 20 127/87 H 97 05/04/19 12:47 05/04/19 12:47 05/04/19 12:47 05/04/19 12:47 05/04/19 12:47 Intake & Output 05/03/19 05/04/19 05/05/19 06:59 06:59 07:59 Weight 61.9 kg General appearance: PRESENT: no acute distress, other - Patient actually looks quite comfortable she is talking in full sentences. Her is in the room during the exam Respiratory exam: PRESENT: clear to auscultation gutierrez. ABSENT: rales, rhonchi, wheezes Cardiovascular exam: PRESENT: RRR. ABSENT: diastolic murmur, rubs, systolic murmur GI/Abdominal exam: PRESENT: distended, hypoactive bowel sounds, soft, tenderness - Only very mild tenderness in the epigastric region Neurological exam: PRESENT: alert, awake, oriented to person, oriented to place, oriented to time, oriented to situation, CN II-XII grossly intact. ABSENT: motor sensory deficit Psychiatric exam: PRESENT: appropriate affect, normal mood. ABSENT: homicidal ideation, suicidal ideation Results Laboratory Results: 05/04/19 13:00 05/04/19 13:00 05/04/19 05/04/19 05/04/19 13:00 13:00 13:00 WBC 10.3 RBC 5.15 Hgb 16.5 H Hct 46.5 MCV 90 MCH 32.0 MCHC 35.4 RDW 16.9 H Plt Count 262 Seg Neutrophils % 70.3 Sodium 130.6 L Potassium 3.5 L Chloride 93 L Carbon Dioxide 29 Anion Gap 9 BUN 8 Creatinine 0.67 Est GFR ( Amer) > 60 Glucose 107 Calcium 9.6 Total Bilirubin 1.7 H AST 42 H Alkaline Phosphatase 136 H Total Protein 6.7 Albumin 3.6 Lipase 2881.2 H Serum HCG, Qual Urine Color [place] Urine Appearance SLIGHTLY-CLOUDY Urine pH 5.0 Ur Specific [place] 1.028 Urine Protein 30 H Urine Glucose (UA) NEGATIVE Urine Ketones NEGATIVE Urine Blood NEGATIVE Urine Nitrite NEGATIVE Ur Leukocyte Esterase NEGATIVE Urine WBC (Auto) 4 Urine RBC (Auto) 1 05/04/19 13:00 WBC RBC Hgb Hct MCV MCH MCHC RDW Plt Count Seg Neutrophils % Sodium Potassium Chloride Carbon Dioxide Anion Gap BUN Creatinine Est GFR ( Amer) Glucose Calcium Total Bilirubin AST Alkaline Phosphatase Total Protein Albumin Lipase Serum HCG, Qual NEGATIVE Urine Color Urine Appearance Urine pH Ur Specific [place] Urine Protein Urine Glucose (UA) Urine Ketones Urine Blood Urine Nitrite Ur Leukocyte Esterase Urine WBC (Auto) Urine RBC (Auto) Impressions: Abdomen Ultrasound 05/04/19 15:24 IMPRESSION: Diffuse fatty liver. No gallstones. Pancreas poorly seen. Tail not identified on today's study. There is been no interval change since yesterday's study. Assessment and Plan - Diagnosis (1) Alcohol abuse Is this a current diagnosis for this admission?: Yes (2) Abdominal pain Qualifiers: Abdominal location: upper abdomen, unspecified Qualified Code(s): R10.10 - Upper abdominal pain, unspecified Is this a current diagnosis for this admission?: Yes (3) Pancreatitis Qualifiers: Chronicity: acute Pancreatitis type: unspecified pancreatitis type Acute pancreatitis complication: unspecified Qualified Code(s): K85.90 - Acute pancreatitis without necrosis or infection, unspecified Is this a current diagnosis for this admission?: Yes (4) Chronic pancreatitis Is this a current diagnosis for this admission?: Yes (5) Tobacco dependency Is this a current diagnosis for this admission?: Yes - Plan Summary Summary: Patient can be admitted to the hospital for IV fluids, will try some clear liquids, will use IV pain medication. We will also get a CT of the abdomen and pelvis with IV and oral contrast. - Time Time Spent with patient: 35 or more minutes
[2019-05-04] MEDS ORDERED: DOCUSATE SODIUM 100 MG CAPSULE PO ONE ×2 (18:00→22:00)
[2019-05-04] MEDS ORDERED: LIPASE/PROTEASE/AMYLASE 1 CAP CAPSULE.DR PO ONE ×3 (18:00→22:00)
[2019-05-04 19:05] LABS: ANION GAP 7 (5-19); BLOOD UREA NITROGEN 7 mg/dL (7-20); CALCIUM 8.6 mg/dL (8.4-10.2); CARBON DIOXIDE 28 mmol/L (22-30); CHLORIDE 96 mmol/L (98-107); CHOLESTEROL 77.71 mg/dL (0-200); CREATINE KINASE 21 U/L (30-135); GLUCOSE 92 mg/dL (75-110); POTASSIUM 3.3 mmol/L (3.6-5.0); TRIGLYCERIDES 27 mg/dL (<150)
--- NOTE | 2019-05-04 19:18 | RADIOLOGY REPORT (SQ) ---
EXAM DESCRIPTION: CT ABD/PELVIS WITH IV ORAL COMPLETED DATE/TIME: 05/04/2019 6:57 pm REASON FOR STUDY: pancreatitis COMPARISON: 07/25/2017 TECHNIQUE: CT scan of the abdomen and pelvis performed using helical scanning technique with dynamic intravenous contrast injection and oral contrast. Images reviewed with lung, soft tissue, and bone w indows. Reconstructed coronal and sagittal MPR images reviewed. Delayed images for evaluation of the urinary system also acquired. All images stored on PACS. All CT scanners at this facility use dose modulation, iterative reconstruction, and/or weight based d osing when appropriate to reduce radiation dose to as low as reasonably achievable (ALARA). [facility]: Dose Right [facility]: CareDose [facility]: Dose Right [facility]: Teradose 4D [facility]: Connoshoer CONTRAST TYPE AND DOSE: contrast/concentration: Isovue 350.00 mg/ml; Total Contrast Delivered: 64.0 ml; Total Saline Delivered: 66.0 ml RENAL FUNCTION: GFR > 60. RADIATION DOSE: CT Rad equipment meets quality standard of care and radiation dose reduction techniq ues were employed. CTDIvol: 5.4 - 7.4 mGy. DLP: 672 mGy-cm.. LIMITATIONS: None. FINDINGS: LOWER CHEST: No significant findings. LIVER: Normal size. Diffuse fatty infiltration. No enhancing masses. No dilated ducts. SPLEEN: Normal size. No focal lesions. PANCREAS: No significant calcifications. Moderate inflammation adjacent to the pancreas. No peripa ncreatic fluid collections. Pancreatic duct not dilated. GALLBLADDER: No calcified stones. No inflammatory changes to suggest cholecystitis. ADRENAL GLANDS: No significant masses. RIGHT KIDNEY AND URETER: No cysts identified. No solid masses identified. No calcified stones. No hyd ronephrosis or hydroureter. LEFT KIDNEY AND URETER: No cysts identified. No solid masses identified. No calcified stones. No hydr onephrosis or hydroureter. AORTA AND VESSELS: No aneurysm. No dissection. Renal arteries, SMA, celiac without significant stenos is. RETROPERITONEUM: No bulky retroperitoneal adenopathy. BOWEL AND PERITONEAL CAVITY: No obstruction or inflammatory changes. No free fluid. APPENDIX: Normal. PELVIS: Small amount of pelvic free fluid. Unremarkable bladder. ABDOMINAL WALL: No masses. No hernias. BONES: No acute findings. OTHER: No other significant finding. IMPRESSION: Moderate inflammation adjacent to the pancreas. No peripancreatic fluid collections. S mall amount of pelvic free fluid. TECHNICAL DOCUMENTATION: JOB ID: [id number] [place]-72 Quality ID # [id number]: Final reports with documentation of one or more dose reduction techniques (e.g., Au tomated exposure control, adjustment of the mA and/or kV according to patient size, use of iterative reconstruction technique) 2010 [employer]- All Rights Reserved Reading location - IP/workstation name: [email or web address]
[2019-05-04 19:19] LABS: DIRECT LDL < 30 mg/dL (<100)
[2019-05-04] MEDS: PANTOPRAZOLE SODIUM 40 MG VIAL IV SCH (22:08)
[2019-05-05 05:24] LABS: ABSOLUTE LYMPHOCYTES (AUTO) 1.3 10^3/uL (0.5-4.7); ABSOLUTE MONOCYTES (AUTO) 1.2 10^3/uL (0.1-1.4); ABSOLUTE NEUT (AUTO) 3.9 10^3/uL (1.7-8.2); BASOPHILS % (AUTO) 0.2 % (0-2); EOSINOPHILS % (AUTO) 0.6 % (0-6); HEMATOCRIT 39.4 % (36.0-47.0); LYMPHOCYTES % (AUTO) 20.3 % (13-45); MEAN CORPUSCULAR HEMOGLOBIN 31.9 pg (27.0-33.4); MEAN CORPUSCULAR HGB CONC 35.3 g/dL (32.0-36.0); MEAN CORPUSCULAR VOLUME 91 fl (80-97); MONOCYTES % (AUTO) 18.3 % (3-13); PLATELET COUNT 194 10^3/uL (150-450); RED BLOOD COUNT 4.35 10^6/uL (3.72-5.28); RED CELL DISTRIBUTION WIDTH 17.3 % (11.5-14.0); SEGMENTED NEUTROPHILS % (AUTO) 60.6 % (42-78); TOTAL CELLS COUNTED % (AUTO) 100 %; WHITE BLOOD COUNT 6.4 10^3/uL (4.0-10.5)
[2019-05-05] MEDS: MORPHINE SULFATE 10 MG/ML INJ IV PRN ×3 (05:27→20:09)
[2019-05-05 05:29] LABS: HEMOGLOBIN 13.9 g/dL (12.0-15.5)
[2019-05-05] MEDS: LIPASE/PROTEASE/AMYLASE 1 CAP CAPSULE.DR PO SCH ×2 (09:43→16:00)
[2019-05-05] MEDS: ENOXAPARIN SODIUM INJ 40 MG/0.4 ML DISP.SYRIN SUBCUT SCH (09:43)
[2019-05-05] MEDS: PANTOPRAZOLE SODIUM 40 MG VIAL IV SCH ×2 (09:43→21:39)
[2019-05-05] MEDS: DOCUSATE SODIUM 100 MG CAPSULE PO SCH (09:44)
[2019-05-05] MEDS: NORMAL SALINE 1000 ML 1,000 ML IV PRN ×2 (09:46→18:51)
--- NOTE | 2019-05-05 15:24 | PDOC PROGRESS REPORT ---
Subjective Progress Note for:: 05/05/19 Reason For Visit: PANCREATITIS, ABDOMINAL PAIN,HAS HISTORY OF 05/05/2019 Admitted with abdominal pain and a history of pancreatitis Physical Exam Vital Signs: Temp Pulse Resp BP Pulse Ox 97.9 F 77 16 100/74 94 05/05/19 11:29 05/05/19 11:29 05/05/19 11:29 05/05/19 11:29 05/05/19 11:29 Intake & Output 05/04/19 05/05/19 05/06/19 05:59 06:59 06:59 Intake Total Balance Weight General appearance: PRESENT: no acute distress, other - Patient actually seen up walking in the hallway with her IV pole Respiratory exam: PRESENT: clear to auscultation gutierrez. ABSENT: rales, rhonchi, wheezes Cardiovascular exam: PRESENT: RRR. ABSENT: diastolic murmur, rubs, systolic murmur GI/Abdominal exam: PRESENT: normal bowel sounds, soft. ABSENT: distended, guarding, mass, organolmegaly, rebound, tenderness Neurological exam: PRESENT: alert, awake, oriented to person, oriented to place, oriented to time, oriented to situation, CN II-XII grossly intact. ABSENT: motor sensory deficit Psychiatric exam: PRESENT: appropriate affect, normal mood. ABSENT: homicidal ideation, suicidal ideation Results Laboratory Results: 05/05/19 04:46 05/04/19 18:23 05/04/19 05/04/19 05/04/19 13:00 13:00 18:23 WBC RBC Hgb Hct MCV MCH MCHC RDW Plt Count Seg Neutrophils % Sodium 130.8 L Potassium 3.3 L Chloride 96 L Carbon Dioxide 28 Anion Gap 7 BUN 7 Creatinine 0.60 Est GFR ( Amer) > 60 Glucose 92 Calcium 8.6 Magnesium Triglycerides 27 Cholesterol 77.71 LDL Cholesterol Direct < 30 VLDL Cholesterol 5.0 L HDL Cholesterol 41 Amylase 381 H Lipase Serum HCG, Qual NEGATIVE 05/05/19 05/05/19 04:46 04:46 WBC 6.4 RBC 4.35 Hgb 13.9 D Hct 39.4 MCV 91 MCH 31.9 MCHC 35.3 RDW 17.3 H Plt Count 194 Seg Neutrophils % 60.6 Sodium Potassium Chloride Carbon Dioxide Anion Gap BUN Creatinine Est GFR ( Amer) Glucose Calcium Magnesium 2.1 Triglycerides Cholesterol LDL Cholesterol Direct VLDL Cholesterol HDL Cholesterol Amylase Lipase 1515.8 H Serum HCG, Qual 05/04/19 18:23 Creatine Kinase 21 L Impressions: Abdomen/Pelvis CT 05/04/19 00:00 IMPRESSION: Moderate inflammation adjacent to the pancreas. No peripancreatic fluid collections. Small amount of pelvic free fluid. Abdomen Ultrasound 05/04/19 15:24 IMPRESSION: Diffuse fatty liver. No gallstones. Pancreas poorly seen. Tail not identified on today's study. There is been no interval change since yesterday's study. Assessment and Plan - Diagnosis (1) Alcohol abuse Is this a current diagnosis for this admission?: Yes (2) Abdominal pain Qualifiers: Abdominal location: upper abdomen, unspecified Qualified Code(s): R10.10 - Upper abdominal pain, unspecified Is this a current diagnosis for this admission?: Yes (3) Pancreatitis Qualifiers: Chronicity: acute Pancreatitis type: unspecified pancreatitis type Acute pancreatitis complication: unspecified Qualified Code(s): K85.90 - Acute pancreatitis without necrosis or infection, unspecified Is this a current diagnosis for this admission?: Yes (4) Chronic pancreatitis Is this a current diagnosis for this admission?: Yes (5) Tobacco dependency Is this a current diagnosis for this admission?: Yes - Plan Summary Summary: Patient can be admitted to the hospital for IV fluids, will try some clear liquids, will use IV pain medication. We will also get a CT of the abdomen and pelvis with IV and oral contrast. 05/05/2019 Temperature 98.5 pulse 87 blood pressure 117/67, O2 sat 97% on room air On admission white count was 10,300 today it is 6.4 On 3 5 her lipase was 827 and then 2 days later it was 2881 which was the day of admission and then today it is come down to 1515 Serum amylase was also elevated today 381 CT scan of the abdomen and pelvis yesterday showed moderate inflammation of the pancreas however the pancreatic duct was not dilated and there were no fluid collections I was making rounds this morning patient was seen to be up in the hallway walking the hallways with her IV pole. Said she tolerated clear liquids well and would like to be advanced on her diet. I have given her full liquids and will advance as tolerated. We will also continue the Pancrease May be able to discharge her to home tomorrow Patient does not appear to be using her IV morphine on a regular basis - Time Time Spent with patient: 15-24 minutes
[2019-05-05] MEDS: POTASSIUM CHLORIDE 10 MEQ TABLET.ER PO SCH (21:39)
[2019-05-06] MEDS: MORPHINE SULFATE 10 MG/ML INJ IV PRN ×2 (03:01→10:49)
[2019-05-06] MEDS: NORMAL SALINE 1000 ML 1,000 ML IV PRN (04:21)
[2019-05-06 05:49] LABS: ABSOLUTE BASOPHILS # (AUTO) 0.1 10^3/uL (0.0-0.2); ABSOLUTE EOSINOPHILS # (AUTO) 0.1 10^3/uL (0.0-0.6); ABSOLUTE LYMPHOCYTES (AUTO) 1.7 10^3/uL (0.5-4.7); ABSOLUTE MONOCYTES (AUTO) 0.7 10^3/uL (0.1-1.4); ABSOLUTE NEUT (AUTO) 1.8 10^3/uL (1.7-8.2); BASOPHILS % (AUTO) 1.2 % (0-2); EOSINOPHILS % (AUTO) 1.6 % (0-6); HEMATOCRIT 36.7 % (36.0-47.0); HEMOGLOBIN 12.4 g/dL (12.0-15.5); LYMPHOCYTES % (AUTO) 39.8 % (13-45); MEAN CORPUSCULAR HEMOGLOBIN 31.5 pg (27.0-33.4); MEAN CORPUSCULAR HGB CONC 33.8 g/dL (32.0-36.0); MEAN CORPUSCULAR VOLUME 93 fl (80-97); MONOCYTES % (AUTO) 15.8 % (3-13); PLATELET COUNT 188 10^3/uL (150-450); RED BLOOD COUNT 3.94 10^6/uL (3.72-5.28); RED CELL DISTRIBUTION WIDTH 17.3 % (11.5-14.0); SEGMENTED NEUTROPHILS % (AUTO) 41.6 % (42-78); TOTAL CELLS COUNTED % (AUTO) 100 %; WHITE BLOOD COUNT 4.2 10^3/uL (4.0-10.5)
[2019-05-06] MEDS ORDERED: BUTALB/ACETAMINOPHEN/CAFFEINE 1 TAB EACH PO PRN (09:25)
[2019-05-06] MEDS: LIPASE/PROTEASE/AMYLASE 1 CAP CAPSULE.DR PO SCH (10:50)
[2019-05-06] MEDS: POTASSIUM CHLORIDE 10 MEQ TABLET.ER PO SCH (10:50)
[2019-05-06] MEDS: PANTOPRAZOLE SODIUM 40 MG VIAL IV SCH (10:51)
[2019-05-06] MEDS: DOCUSATE SODIUM 100 MG CAPSULE PO SCH (12:51)
[2019-05-06] MEDS: ENOXAPARIN SODIUM INJ 40 MG/0.4 ML DISP.SYRIN SUBCUT SCH (12:51)
[2019-05-06 13:01] VITALS: BP 96/53
--- NOTE | 2019-05-06 18:59 | PDOC DISCHARGE SUMMARY ---
Impression - Admit/DC Date/PCP Admission Date/Primary Care Provider: 05/04/19 16:20 TOY CROWLEY MD Discharge Date: 05/06/19 - Discharge Diagnosis (1) Alcohol abuse Is this a current diagnosis for this admission?: Yes (2) Abdominal pain Is this a current diagnosis for this admission?: Yes (3) Pancreatitis Is this a current diagnosis for this admission?: Yes (4) Chronic pancreatitis Is this a current diagnosis for this admission?: Yes (5) Tobacco dependency Is this a current diagnosis for this admission?: Yes - Assessment Summary: Patient can be admitted to the hospital for IV fluids, will try some clear liquids, will use IV pain medication. We will also get a CT of the abdomen and pelvis with IV and oral contrast. 05/05/2019 Temperature 98.5 pulse 87 blood pressure 117/67, O2 sat 97% on room air On admission white count was 10,300 today it is 6.4 On 3 5 her lipase was 827 and then 2 days later it was 2881 which was the day of admission and then today it is come down to 1515 Serum amylase was also elevated today 381 CT scan of the abdomen and pelvis yesterday showed moderate inflammation of the pancreas however the pancreatic duct was not dilated and there were no fluid collections I was making rounds this morning patient was seen to be up in the hallway walking the hallways with her IV pole. Said she tolerated clear liquids well and would like to be advanced on her diet. I have given her full liquids and will advance as tolerated. We will also continue the Pancrease May be able to discharge her to home tomorrow Patient does not appear to be using her IV morphine on a regular basis 05/06/2019 He is feeling much better and eating a normal diet with no vomiting and no abdominal pain Patient's lipase is gone down to 885 from 2881 Have discharge patient home on Pancrease albuterol inhaler, and plain Fioricet No. 12 tablets She has had about 8 different episodes of pancreatitis over the last several years Patient is well aware of how to structure her diet. Patient states she has not drank any alcohol in 6 or 7 months. Many diagnosis was abdominal pain, pancreatitis, tobacco abuse, history of alcohol abuse She is going to follow-up with the [facility] in the next 5 to 7 days - Additional Information Resuscitation Status: Full Code Discharge Diet: Full Liquids Discharge Activity: Balance Activity w/Rest Referrals: [facility] [Provider Group] - 05/13/19 8:45 am Prescriptions: Butalb/Acetaminophen/Caffeine [Fioricet (50-325-40 mg) Tablet] 1 tab PO Q6HP PRN 3 Days #12 each PRN Reason: Lipase/Protease/Amylase [Pancreaze-10 Capsule.] 1 cap PO BIDACBS 7 Days #14 capsule. Albuterol Sulfate [Ventolin Hfa 8 gm Mdi] 2 puff IH Q6HP PRN 14 Days #2 inhaler PRN Reason: Home Medications: Albuterol Sulfate [Proair HFA Inhalation Aerosol 8.5 gm MDI] 2 puff IH Q4HP PRN 07/25/17 Ondansetron [Zofran Odt 4 mg Tablet] 4 mg PO Q4HP PRN 05/05/19 Acetaminophen [Tylenol 325 mg Tablet] 650 mg PO Q4HP PRN tablet 05/06/19 Albuterol Sulfate [Ventolin Hfa 8 gm Mdi] 2 puff IH Q6HP PRN 14 Days #2 inhaler 05/06/19 Butalb/Acetaminophen/Caffeine [Fioricet (50-325-40 mg) Tablet] 1 tab PO Q6HP PRN 3 Days #12 each 05/06/19 Docusate Sodium [Colace 100 mg Capsule] 100 mg PO DAILY capsule 05/06/19 Lipase/Protease/Amylase [Pancreaze-10 Capsule.] 1 cap PO BIDACBS 7 Days #14 capsule. 05/06/19 History of Present Illiness History of Present Illness: TACHO SALINAS is a 38 year old female comes in with a 2-day history of abdominal pain. Patient states she was actually in the emergency room 2 days ago with abdominal pain and some vomiting. At that time her lipase was 827 today she returns with continued abdominal pain but no vomiting in the last 48 hours and her lipase is 2881. Patient states she has had no fever no chills. No vomiting in 48 hours but she also states she has had nothing to eat in 5 days. Patient has had multiple episodes of pancreatitis back in 2018 which looks like her first case her lipase was 9632. She states she used to drink alcohol and back in March 2018 she was in the ER with a blood alcohol 355. Patient states she has not drank any alcohol however in 6 or 7 months. Patient also states that about a month ago she was diagnosed with "MRSA". He said she has had a ulcer or lesion between her fourth and fifth toe on her right foot for about 6 months and 1 month ago it started getting worse. She went to the [facility] and is culture was done and supposedly it is MRSA. She has been on tetracycline now for several days and it actually upset her stomach and caused the vomiting. Patient had an ultrasound done in the emergency room but unfortunately it did not visualize the pancreas or the tail of the pancreas therefore I have ordered a CT scan of the abdomen and pelvis IV and oral contrast. She has normal renal functions. Patient has had 1 dose of morphine in the emergency room she says she is feeling better. Patient would like to try clear liquids tonight after she finishes her CT scan. Patient appears to be medically stable for transfer to the floor Physical Exam Vital Signs: Temp Pulse Resp BP Pulse Ox 98.6 F 71 16 96/53 L 99 05/06/19 12:58 05/06/19 12:58 05/06/19 12:58 05/06/19 12:58 05/06/19 12:58 Intake & Output 05/05/19 05/06/19 05/07/19 06:59 06:59 06:59 Intake Total 3440 1480 Balance 3440 1480 Weight 66.8 kg Results Laboratory Results: WBC 4.2 10^3/uL (4.0-10.5) 05/06/19 05:01 RBC 3.94 10^6/uL (3.72-5.28) 05/06/19 05:01 Hgb 12.4 g/dL (12.0-15.5) 05/06/19 05:01 Hct 36.7 % (36.0-47.0) 05/06/19 05:01 MCV 93 fl (80-97) 05/06/19 05:01 MCH 31.5 pg (27.0-33.4) 05/06/19 05:01 MCHC 33.8 g/dL (32.0-36.0) 05/06/19 05:01 RDW 17.3 % (11.5-14.0) H 05/06/19 05:01 Plt Count 188 10^3/uL (150-450) 05/06/19 05:01 Lymph % (Auto) 39.8 % (13-45) 05/06/19 05:01 [place] % (Auto) 15.8 % (3-13) H 05/06/19 05:01 Eos % (Auto) 1.6 % (0-6) 05/06/19 05:01 Baso % (Auto) 1.2 % (0-2) 05/06/19 05:01 Absolute Neuts (auto) 1.8 10^3/uL (1.7-8.2) 05/06/19 05:01 Absolute Lymphs (auto) 1.7 10^3/uL (0.5-4.7) 05/06/19 05:01 Absolute Monos (auto) 0.7 10^3/uL (0.1-1.4) 05/06/19 05:01 Absolute Eos (auto) 0.1 10^3/uL (0.0-0.6) 05/06/19 05:01 Absolute Basos (auto) 0.1 10^3/uL (0.0-0.2) 05/06/19 05:01 Seg Neutrophils % 41.6 % (42-78) L 05/06/19 05:01 Sodium 130.8 mmol/L (137-145) L 05/04/19 18:23 Potassium 3.3 mmol/L (3.6-5.0) L 05/04/19 18:23 Chloride 96 mmol/L (98-107) L 05/04/19 18:23 Carbon Dioxide 28 mmol/L (22-30) 05/04/19 18:23 Anion Gap 7 (5-19) 05/04/19 18:23 BUN 7 mg/dL (7-20) 05/04/19 18:23 Creatinine 0.60 mg/dL (0.52-1.25) 05/04/19 18:23 Est GFR ( Amer) > 60 (>60) 05/04/19 18:23 Est GFR (MDRD) Non-Af > 60 (>60) 05/04/19 18:23 Glucose 92 mg/dL (75-110) 05/04/19 18:23 Calcium 8.6 mg/dL (8.4-10.2) 05/04/19 18:23 Magnesium 2.1 mg/dL (1.6-2.3) 05/05/19 04:46 Total Bilirubin 1.7 mg/dL (0.2-1.3) H 05/04/19 13:00 Direct Bilirubin 0.3 mg/dL (0.0-0.4) 05/04/19 13:00 Neonat Total Bilirubin Not Reportable 05/04/19 13:00 Neonat Direct Bilirubin Not Reportable 05/04/19 13:00 Neonat Indirect Bili Not Reportable 05/04/19 13:00 AST 42 U/L (14-36) H 05/04/19 13:00 ALT 43 U/L (<35) H 05/04/19 13:00 Alkaline Phosphatase 136 U/L (38-126) H 05/04/19 13:00 Creatine Kinase 21 U/L (30-135) L 05/04/19 18:23 Total Protein 6.7 g/dL (6.3-8.2) 05/04/19 13:00 Albumin 3.6 g/dL (3.5-5.0) 05/04/19 13:00 Triglycerides 27 mg/dL (<150) 05/04/19 18:23 Cholesterol 77.71 mg/dL (0-200) 05/04/19 18:23 LDL Cholesterol Direct < 30 mg/dL (<100) 05/04/19 18:23 VLDL Cholesterol 5.0 mg/dL (10-31) L 05/04/19 18:23 HDL Cholesterol 41 mg/dL (>40) 05/04/19 18:23 Amylase 381 U/L (30-110) H 05/04/19 13:00 Lipase 885.8 U/L (23-300) H 05/06/19 05:01 Serum HCG, Qual NEGATIVE (NEGATIVE) 05/04/19 13:00 Urine Color [place] 05/04/19 13:00 Urine Appearance SLIGHTLY-CLOUDY 05/04/19 13:00 Urine pH 5.0 (5.0-9.0) 05/04/19 13:00 Ur Specific [place] 1.028 05/04/19 13:00 Urine Protein 30 mg/dL (NEGATIVE) H 05/04/19 13:00 Urine Glucose (UA) NEGATIVE mg/dL (NEGATIVE) 05/04/19 13:00 Urine Ketones NEGATIVE mg/dL (NEGATIVE) 05/04/19 13:00 Urine Blood NEGATIVE (NEGATIVE) 05/04/19 13:00 Urine Nitrite NEGATIVE (NEGATIVE) 05/04/19 13:00 Urine Bilirubin NEGATIVE (NEGATIVE) 05/04/19 13:00 Urine Urobilinogen NEGATIVE mg/dL (<2.0) 05/04/19 13:00 Ur Leukocyte Esterase NEGATIVE (NEGATIVE) 05/04/19 13:00 Urine WBC (Auto) 4 /HPF 05/04/19 13:00 Urine RBC (Auto) 1 /HPF 05/04/19 13:00 Squamous Epi Cells Auto 4 /HPF 05/04/19 13:00 Urine Mucus (Auto) MANY /LPF 05/04/19 13:00 Urine Ascorbic Acid 40 (NEGATIVE) H 05/04/19 13:00 Impressions: Abdomen/Pelvis CT 05/04/19 00:00 IMPRESSION: Moderate inflammation adjacent to the pancreas. No peripancreatic fluid collections. Small amount of pelvic free fluid. Abdomen Ultrasound 05/04/19 15:24 IMPRESSION: Diffuse fatty liver. No gallstones. Pancreas poorly seen. Tail not identified on today's study. There is been no interval change since yesterday's study. Stroke Is this a Stroke Patient?: No Acute Heart Failure - Is this a Heart Failure Patient?: No
== END 2019-05-06 15:15 | disposition home or self-care (01) | DRG 440 ==
LOC: ER 12:43 → EH 16:20 → 5 19:00
PROVIDERS: ADMIT Internal Medicine; ATTEND Internal Medicine
DX: K85.90 Acute pancreatitis without necrosis or infection, unspecified (principal); J44.9 Chronic obstructive pulmonary disease, unspecified; K86.1 Other chronic pancreatitis; F25.9 Schizoaffective disorder, unspecified; F17.210 Nicotine dependence, cigarettes, uncomplicated; F10.10 Alcohol abuse, uncomplicated; Y90.9 Presence of alcohol in blood, level not specified
CPT/HCPCS: 36415; 74177; 76705; 80053; 80061; 81001; 82150; 82550; 83690; 83735; 84703; 85025; 94640; 96374; 96375; 99285; C9113; J1650; J2270; J2405; J3490; J7030